=== PATIENT | male | born 1990 | race Caucasian/White ===

== ENCOUNTER 2017-06-23 17:53 | Emergency (ER) | payer OTHER ==
[2017-06-23 18:36] VITALS: BP 165/112
[2017-06-23] MEDS ORDERED: Ketorolac 60 MG/2 ML SDV IM ONE (19:24)
--- NOTE | 2017-06-23 19:31 | EDM.PDOC ---
ED HPI GENERAL MEDICAL PROBLEM - General Chief Complaint: Back Pain or Injury Stated Complaint: PT HURT BACK Time Seen by Provider: 06/23/17 18:55 - History of Present Illness INITIAL COMMENTS - FREE TEXT/NARRATIVE: HISTORY AND PHYSICAL: History of present illness: Patient is 26-year-old male presents with concern of low back pain after having twisted at work he denies direct trauma denies numbness weakness incontinence or retention bowel or bladder he states he does have some lumbar disc disease that he is told in the past. Review of systems: As per history of present illness and below otherwise all systems reviewed and negative. Past medical history: As per history of present illness and as reviewed below otherwise noncontributory. Surgical history: As per history of present illness and as reviewed below otherwise noncontributory. Social history: No reported history of drug or alcohol abuse. Family history: As per history of present illness and as reviewed below otherwise noncontributory. Physical exam: HEENT: Atraumatic, normocephalic, pupils reactive, negative for conjunctival pallor or scleral icterus, mucous membranes moist, throat clear, neck supple, nontender, trachea midline. Lungs: Clear to auscultation, breath sounds equal bilaterally, chest nontender. Heart: S1S2, regular, negative for clicks, rubs, or JVD. Abdomen: Soft, nondistended, nontender. Negative for masses or hepatosplenomegaly. Negative for costovertebral tenderness. Pelvis: Stable nontender. Genitourinary: Deferred. Rectal: Deferred. Extremities: Atraumatic, negative for cords or calf pain. Neurovascular unremarkable. Neuro: Awake, alert, oriented. Cranial nerves II through XII unremarkable. Cerebellum unremarkable. Motor and sensory unremarkable throughout. Exam nonfocal. Back: Patient is some mild paravertebral tenderness at the level of lumbar spinal vertebral body or point tenderness deep tendon reflexes motor and sensory are normal patient is able to stand on his toes back on his heels Diagnostics: Lumbar spine x-ray Therapeutics: Toradol 60 mg IM Impression: #1 low back pain #2 history of lumbar disc disease Definitive disposition and diagnosis as appropriate pending reevaluation and review of above. Lower Back Pain Score (Numeric/FACES): 7 - Related Data Allergies Allergy/AdvReac Type Severity Reaction Status Date / Time acetaminophen [From Vicodin] Allergy Swollen Verified 06/23/17 18:29 Tongue hydrocodone bitartrate Allergy Swollen Verified 06/23/17 18:29 [From Vicodin] Tongue Home Meds: Home Meds . [No Known Home Meds] 06/23/17 [History] Past Medical History Other HEENT History: wears glasses Cardiovascular History: Reports: Angina, Other (See Below) Other Cardiovascular History: will be checked by Dr. Bebeto Allison before -The patient told me that he saw Dr. Allison and he was cleared for surgery. Respiratory History: Reports: Other (See Below) Gastrointestinal History: Reports: GERD Genitourinary History: Reports: None Musculoskeletal History: Reports: Fracture Other Musculoskeletal History: left arm and left thumb Neurological History: Reports: None Psychiatric History: Reports: None Endocrine/Metabolic History: Reports: Hypothyroidism, Obesity/BMI 30+ Hematologic History: Reports: None Immunologic History: Reports: None Oncologic (Cancer) History: Reports: None Dermatologic History: Reports: None - Infectious Disease History Infectious Disease History: Reports: Chicken Pox - Past Surgical History Head Surgeries/Procedures: Reports: None GI Surgical History: Reports: Appendectomy Male Surgical History: Reports: None Endocrine Surgical History: Reports: None Neurological Surgical History: Reports: None Musculoskeletal Surgical History: Reports: ORIF, Other (See Below) Oncologic Surgical History: Reports: None Dermatological Surgical History: Reports: None - History Comment History Comment: etoh "1x a week". Social & Family History - Family History Family Medical History: Noncontributory - Tobacco Use Smoking Status *Q: Current Every Day Smoker Years of Tobacco use: 18 Packs/Tins Daily: 0.5 Used Tobacco, but Quit: No Second Hand Smoke Exposure: Yes - Caffeine Use Caffeine Use: Reports: Coffee, Energy Drinks, Soda, Tea - Alcohol Use Days Per Week of Alcohol Use: 3 Number of Drinks Per Day: 6 Total Drinks Per Week: 18 - Recreational Drug Use Recreational Drug Use: No Drug Use in Last 12 Months: No ED ROS GENERAL - Review of Systems Review Of Systems: ROS reveals no pertinent complaints other than HPI. ED EXAM, GENERAL - Physical Exam Exam: See Below (See dictation) Course - Vital Signs Last Recorded V/S: Last Vital Signs Temp 36.8 C 06/23/17 18:34 Pulse 89 06/23/17 18:34 Resp 18 06/23/17 18:34 BP 165/112 H 06/23/17 18:34 Pulse Ox 95 06/23/17 18:34 - Orders/Labs/Meds Orders: Active Orders 24 hr Category Date Time Status Lumbar Spine 2 or 3V [CR] Stat Exams 06/23/17 19:24 Ordered Meds: Medications Discontinued Medications Generic Name Dose Route Start Last Admin Trade Name Micky PRN Reason Stop Dose Admin Ketorolac Tromethamine 60 mg 06/23/17 19:24 Toradol IM 06/23/17 19:25 ONETIME ONE Departure - Departure Time of Disposition: 19:29 Disposition: Home, Self-Care 01 Condition: Good Clinical Impression: Back pain - Discharge Information Referrals: PCP,None [Primary Care Provider] - Additional Instructions: The following information is given to patients seen in the emergency department who are being discharged to home. This information is to outline your options for follow-up care. We provide all patients seen in our emergency department with a follow-up referral. The need for follow-up, as well as the timing and circumstances, are variable depending upon the specifics of your emergency department visit. If you don't have a primary care physician on staff, we will provide you with a referral. We always advise you to contact your personal physician following an emergency department visit to inform them of the circumstance of the visit and for follow-up with them and/or the need for any referrals to a consulting specialist. The emergency department will also refer you to a specialist when appropriate. This referral assures that you have the opportunity for followup care with a specialist. All of these measure are taken in an effort to provide you with optimal care, which includes your followup. Under all circumstances we always encourage you to contact your private physician who remains a resource for coordinating your care. When calling for followup care, please make the office aware that this follow-up is from your recent emergency room visit. If for any reason you are refused follow-up, please contact the [facility] emergency department at and asked to speak to the emergency department charge nurse. Ultram Flexeril as prescribed follow-up occupational health as discussed return as needed as discussed - My Orders Last 24 Hours: My Active Orders 06/23/17 19:24 Lumbar Spine 2 or 3V [CR] Stat - Assessment/Plan Last 24 Hours: My Active Orders 06/23/17 19:24 Lumbar Spine 2 or 3V [CR] Stat
--- NOTE | 2017-06-24 10:45 | CR ---
EXAM DATE: 06/23/17 PATIENT'S AGE: 26 Patient: [facility] Facility: [place], [place] Site . Site : 1990 Study: XRay Spine Lumbar [id number] 8:18:02 PM Ordering Physician: Emily Brown Final Report: INDICATION: LOWER BACK PAIN TECHNIQUE: Lumbar spine radiograph 3 views COMPARISON: None FINDINGS: Bones: Alignment is normal. No acute fractures, compression deformities, or aggressive bone lesions identified. Disc spaces: Disc spaces are normal. Facet joints are normal. Soft tissues: Unremarkable. IMPRESSION: 1. No acute osseous injuries are noted. Dictated by: Alejandro Vargas MD @ 06/23/2017 20:42:50 (Electronic Signature) Report Signed by Proxy. [facility]ITAL[facility]iv[facility]
== END 2017-06-23 20:40 | disposition home or self-care (01) ==
LOC: MW.ED 17:53
DX: M54.5 Low back pain (principal); F17.210 Nicotine dependence, cigarettes, uncomplicated
CPT/HCPCS: 72100; 96372; 99283; J1885

== ENCOUNTER 2017-09-13 00:42 | Emergency (ER) | payer SELFPAY ==
--- NOTE | 2017-09-13 01:07 | EDM.PDOC ---
ED HPI GENERAL MEDICAL PROBLEM - General Chief Complaint: Lower Extremity Injury/Pain Stated Complaint: POSSIBLE BROKEN RIGHT ANKLE AND RIGHT THUMB Time Seen by Provider: 09/13/17 01:05 - History of Present Illness INITIAL COMMENTS - FREE TEXT/NARRATIVE: HISTORY AND PHYSICAL: History of present illness: Patient is a 26-year-old male presents status post fall which injured his right ankle and first digit of his right hand he denies other trauma or concern Review of systems: As per history of present illness and below otherwise all systems reviewed and negative. Past medical history: As per history of present illness and as reviewed below otherwise noncontributory. Surgical history: As per history of present illness and as reviewed below otherwise noncontributory. Social history: No reported history of drug or alcohol abuse. Family history: As per history of present illness and as reviewed below otherwise noncontributory. Physical exam: HEENT: Atraumatic, normocephalic, pupils reactive, negative for conjunctival pallor or scleral icterus, mucous membranes moist, throat clear, neck supple, nontender, trachea midline. Lungs: Clear to auscultation, breath sounds equal bilaterally, chest nontender. Heart: S1S2, regular, negative for clicks, rubs, or JVD. Abdomen: Soft, nondistended, nontender. Negative for masses or hepatosplenomegaly. Negative for costovertebral tenderness. Pelvis: Stable nontender. Genitourinary: Deferred. Rectal: Deferred. Extremities: Patient has some mild tenderness and swelling in region of the lateral malleolus of his right ankle right thumb has no point tenderness no gross deformity CMS and neurovascular exam are unremarkable Neuro: Awake, alert, oriented. Cranial nerves II through XII unremarkable. Cerebellum unremarkable. Motor and sensory unremarkable throughout. Exam nonfocal. Diagnostics: X-ray right hand/right ankle Therapeutics: Klever wrap Impression: #1 observation status post fall #2 right ankle injury #3 acute right hand injury Definitive disposition and diagnosis as appropriate pending reevaluation and review of above. right ankle Pain Score (Numeric/FACES): 10 right thumb Pain Score (Numeric/FACES): 4 - Related Data Allergies Allergy/AdvReac Type Severity Reaction Status Date / Time acetaminophen [From Vicodin] Allergy Swollen Verified 09/13/17 00:54 Tongue hydrocodone bitartrate Allergy Swollen Verified 01/27/18 00:54 [From Vicodin] Tongue Home Meds: Home Meds . [No Known Home Meds] 06/23/17 [History] Past Medical History Other HEENT History: wears glasses Cardiovascular History: Reports: Angina Other Cardiovascular History: will be checked by Dr. Bebeto Allison before -The patient told me that he saw Dr. Allison and he was cleared for surgery. Respiratory History: Reports: Other (See Below) Gastrointestinal History: Reports: GERD Genitourinary History: Reports: None Musculoskeletal History: Reports: Fracture Other Musculoskeletal History: left arm and left thumb Neurological History: Reports: None Psychiatric History: Reports: None Endocrine/Metabolic History: Reports: Hypothyroidism, Obesity/BMI 30+ Hematologic History: Reports: None Immunologic History: Reports: None Oncologic (Cancer) History: Reports: None Dermatologic History: Reports: None - Infectious Disease History Infectious Disease History: Reports: Chicken Pox - Past Surgical History Head Surgeries/Procedures: Reports: None HEENT Surgical History: Reports: None Cardiovascular Surgical History: Reports: None GI Surgical History: Reports: Appendectomy Male Surgical History: Reports: None Endocrine Surgical History: Reports: None Neurological Surgical History: Reports: None Musculoskeletal Surgical History: Reports: ORIF, Other (See Below) Other Musculoskeletal Surgeries/Procedures:: left arm surgery with plate and screws Oncologic Surgical History: Reports: None Dermatological Surgical History: Reports: None - History Comment History Comment: etoh "1x a week". Social & Family History - Family History Family Medical History: Noncontributory - Tobacco Use Smoking Status *Q: Current Every Day Smoker Years of Tobacco use: 17 Packs/Tins Daily: 0.5 Used Tobacco, but Quit: No Second Hand Smoke Exposure: Yes - Caffeine Use Caffeine Use: Reports: None - Alcohol Use Days Per Week of Alcohol Use: 3 Number of Drinks Per Day: 6 Total Drinks Per Week: 18 - Recreational Drug Use Recreational Drug Use: No Drug Use in Last 12 Months: No Review of Systems - Review of Systems Review Of Systems: ROS reveals no pertinent complaints other than HPI. ED EXAM, GENERAL - Physical Exam Exam: See Below (See dictation) Course - Vital Signs Last Recorded V/S: Last Vital Signs Temp 37.4 C 09/13/17 00:48 Pulse 140 H 09/13/17 00:48 Resp 20 09/13/17 00:48 BP Pulse Ox 97 09/13/17 00:48 - Orders/Labs/Meds Orders: Active Orders 24 hr Category Date Time Status Ankle Min 3V Rt [CR] Stat Exams 09/13/17 00:49 Taken Fingers Thumb Rt F5 [CR] Stat Exams 09/13/17 00:49 Taken Departure - Departure Time of Disposition: 02:10 Disposition: Home, Self-Care 01 Condition: Good Clinical Impression: Ankle injury, Hand injury - Discharge Information Referrals: PCP,None [Primary Care Provider] - Forms: ED Department Discharge Additional Instructions: The following information is given to patients seen in the emergency department who are being discharged to home. This information is to outline your options for follow-up care. We provide all patients seen in our emergency department with a follow-up referral. The need for follow-up, as well as the timing and circumstances, are variable depending upon the specifics of your emergency department visit. If you don't have a primary care physician on staff, we will provide you with a referral. We always advise you to contact your personal physician following an emergency department visit to inform them of the circumstance of the visit and for follow-up with them and/or the need for any referrals to a consulting specialist. The emergency department will also refer you to a specialist when appropriate. This referral assures that you have the opportunity for followup care with a specialist. All of these measure are taken in an effort to provide you with optimal care, which includes your followup. Under all circumstances we always encourage you to contact your private physician who remains a resource for coordinating your care. When calling for followup care, please make the office aware that this follow-up is from your recent emergency room visit. If for any reason you are refused follow-up, please contact the [facility] emergency department at and asked to speak to the emergency department charge nurse. Motrin/Tylenol as directed Klever wrap crutches as discussed follow-up private medical doctor wanted today's return as needed as discussed - My Orders Last 24 Hours: My Active Orders 09/13/17 00:49 Ankle Min 3V Rt [CR] Stat Fingers Thumb Rt F5 [CR] Stat - Assessment/Plan Last 24 Hours: My Active Orders 09/13/17 00:49 Ankle Min 3V Rt [CR] Stat Fingers Thumb Rt F5 [CR] Stat
[2017-09-13] MEDS ORDERED: Ibuprofen 400 MG Tab PO ONE (02:11)
--- NOTE | 2017-09-15 13:27 | CR ---
EXAM DATE: 09/13/17 PATIENT'S AGE: 26 Patient: [facility] Facility: [place], [place] Site . Site : 1990 Study: XRay Extremity Right [id number]/27/2018 1:48:13 AM Ordering Physician: Doctor Estrella Final Report: INDICATION: Ankle injury TECHNIQUE: Ankle radiograph 3 views right COMPARISON: None FINDINGS: Bones: Alignment is normal. No acute fractures or aggressive bone lesions identified. Joint spaces: Unremarkable. No ankle joint effusion is seen. Soft tissues: Unremarkable. No radiopaque foreign bodies are seen. IMPRESSION: 1. No acute osseous injuries are noted. Dictated by: Alejandro Vargas MD @ 09/13/2017 01:56:38 (Electronic Signature) Report Signed by Proxy. [facility]
--- NOTE | 2017-09-15 13:28 | CR ---
EXAM DATE: 09/13/17 PATIENT'S AGE: 26 Patient: [facility] Facility: [place], [place] Site . Site : 1990 Study: XRay Extremity Right [id number]/27/2018 1:49:14 AM Ordering Physician: Doctor Estrella Final Report: INDICATION: Injury to thumb TECHNIQUE: Finger radiograph 3 views right COMPARISON: None FINDINGS: Bones: No acute fractures or aggressive bone lesions are identified. Joints: The metacarpophalangeal and interphalangeal joints are normal in appearance. Soft tissues: Unremarkable. No radiopaque foreign bodies are seen. IMPRESSION: 1. No acute osseous injuries or abnormalities are noted. Dictated by: Alejandro Vargas MD @ 09/13/2017 01:57:16 (Electronic Signature) Report Signed by Proxy. [facility]ITAL[facility]
== END 2017-09-13 02:20 | disposition home or self-care (01) ==
LOC: MW.ED 00:42
DX: S99.911A Unspecified injury of right ankle, initial encounter (principal); S69.91XA Unspecified injury of right wrist, hand and finger(s), initial encounter; F17.210 Nicotine dependence, cigarettes, uncomplicated; Z88.5 Allergy status to narcotic agent; Z88.8 Allergy status to other drugs, medicaments and biological substances; W19.XXXA Unspecified fall, initial encounter
CPT/HCPCS: 73140; 73610; 99283; A9270

== ENCOUNTER 2017-12-13 07:51 | Emergency (ER) | payer SELFPAY ==
[2017-12-13 08:00] VITALS: BP 148/98
[2017-12-13] MEDS ORDERED: methylPREDNISolone Sodium Succinate 125 MG/2 ML SDV IM ONE (08:07)
--- NOTE | 2017-12-13 08:13 | EDM.PDOC ---
ED HPI GENERAL MEDICAL PROBLEM - General Chief Complaint: Skin Complaint Stated Complaint: RASH Time Seen by Provider: 12/13/17 08:02 - History of Present Illness INITIAL COMMENTS - FREE TEXT/NARRATIVE: HISTORY AND PHYSICAL: History of present illness: The patient is a 27-year-old male with no stated medical problems who presents with complaints of a diffuse rash on his extremities and trunk that started yesterday. He denies any allergies to any medications and did not eat any new foods or contact any new products at work or at home but he says the rash is very itchy and is on his lower extremities upper extremities and trunk but not on his genitalia or neck.. The patient has not taken any medications for the itching or the rash. He has no swelling of his mouth or tongue and has no respiratory complaints Review of systems: As per history of present illness and below otherwise all systems reviewed and negative. Past medical history: As per history of present illness and as reviewed below otherwise noncontributory. Surgical history: As per history of present illness and as reviewed below otherwise noncontributory. Social history: No reported history of drug or alcohol abuse. Family history: As per history of present illness and as reviewed below otherwise noncontributory. Physical exam: General: Well-developed well-nourished overweight man who is nontoxic and vital signs were noted by me. He speaking clearly and easily. HEENT: Atraumatic, normocephalic, pupils reactive, negative for conjunctival pallor or scleral icterus, mucous membranes moist, throat clear, neck supple, nontender, trachea midline. there is no facial swelling or oropharyngeal swelling Lungs: Clear to auscultation, breath sounds equal bilaterally, chest nontender. no wheezing stridor Heart: S1S2, regular, negative for clicks, rubs, or JVD. Abdomen: Soft, nondistended, nontender. NABS Negative for costovertebral tenderness. Pelvis: Stable nontender. Genitourinary: Deferred. Rectal: Deferred. Extremities: Atraumatic, negative for cords or calf pain. Neurovascular unremarkable. Neuro: Awake, alert, oriented. Cranial nerves II through XII unremarkable. Cerebellum unremarkable. Motor and sensory unremarkable throughout. Exam nonfocal. Skin: On the lower extremities and the trunk there is diffuse urticarial-like areas which are patchy and there is less on the arms but there is no rash or lesion seen on the neck or face. Diagnostics: [] Therapeutics: IM solumedrol Impression: Urticaria/contact reaction Definitive disposition and diagnosis as appropriate pending reevaluation and review of above. - Related Data Allergies Allergy/AdvReac Type Severity Reaction Status Date / Time acetaminophen [From Vicodin] Allergy Swollen Verified 12/13/17 07:58 Tongue hydrocodone bitartrate Allergy Swollen Verified 12/13/17 07:58 [From Vicodin] Tongue Home Meds: Home Meds . [No Known Home Meds] 06/23/17 [History] Past Medical History Other HEENT History: wears glasses Cardiovascular History: Reports: Angina Other Cardiovascular History: will be checked by Dr. Bebeto Allison before -The patient told me that he saw Dr. Allison and he was cleared for surgery. Respiratory History: Reports: Other (See Below) Gastrointestinal History: Reports: GERD Genitourinary History: Reports: None Musculoskeletal History: Reports: Fracture Other Musculoskeletal History: left arm and left thumb Neurological History: Reports: None Psychiatric History: Reports: None Endocrine/Metabolic History: Reports: Hypothyroidism, Obesity/BMI 30+ Hematologic History: Reports: None Immunologic History: Reports: None Oncologic (Cancer) History: Reports: None Dermatologic History: Reports: None - Infectious Disease History Infectious Disease History: Reports: Chicken Pox - Past Surgical History Head Surgeries/Procedures: Reports: None HEENT Surgical History: Reports: None Cardiovascular Surgical History: Reports: None GI Surgical History: Reports: Appendectomy Male Surgical History: Reports: None Endocrine Surgical History: Reports: None Neurological Surgical History: Reports: None Musculoskeletal Surgical History: Reports: ORIF, Other (See Below) Other Musculoskeletal Surgeries/Procedures:: left arm surgery with plate and screws Oncologic Surgical History: Reports: None Dermatological Surgical History: Reports: None - History Comment History Comment: etoh "1x a week". Social & Family History - Family History Family Medical History: Noncontributory - Tobacco Use Smoking Status *Q: Current Every Day Smoker Years of Tobacco use: 18 Packs/Tins Daily: 0.5 Used Tobacco, but Quit: No Second Hand Smoke Exposure: Yes - Caffeine Use Caffeine Use: Reports: None - Alcohol Use Days Per Week of Alcohol Use: 2 Number of Drinks Per Day: 5 Total Drinks Per Week: 10 - Recreational Drug Use Recreational Drug Use: No Drug Use in Last 12 Months: No ED ROS GENERAL - Review of Systems Review Of Systems: ROS reveals no pertinent complaints other than HPI. ED EXAM, SKIN/RASH Exam: See Below (See dictation) Course - Vital Signs Last Recorded V/S: Last Vital Signs Temp 36.5 C 12/13/17 07:58 Pulse 108 H 12/13/17 07:58 Resp 20 12/13/17 07:58 BP 148/98 H 12/13/17 07:58 Pulse Ox 97 12/13/17 07:58 - Orders/Labs/Meds Orders: Active Orders 24 hr Category Date Time Status methylPREDNISolone Sod Succ [Solu-MEDROL] Med 12/13/17 08:07 Once 125 mg IM ONETIME ONE Departure - Departure Time of Disposition: 08:11 Disposition: Home, Self-Care 01 Condition: Good Clinical Impression: Urticaria, Contact allergic reaction - Discharge Information Referrals: PCP,None [Primary Care Provider] - Additional Instructions: The following information is given to patients seen in the emergency department who are being discharged to home. This information is to outline your options for follow-up care. We provide all patients seen in our emergency department with a follow-up referral. The need for follow-up, as well as the timing and circumstances, are variable depending upon the specifics of your emergency department visit. If you don't have a primary care physician on staff, we will provide you with a referral. We always advise you to contact your personal physician following an emergency department visit to inform them of the circumstance of the visit and for follow-up with them and/or the need for any referrals to a consulting specialist. The emergency department will also refer you to a specialist when appropriate. This referral assures that you have the opportunity for followup care with a specialist. All of these measure are taken in an effort to provide you with optimal care, which includes your followup. Under all circumstances we always encourage you to contact your private physician who remains a resource for coordinating your care. When calling for followup care, please make the office aware that this follow-up is from your recent emergency room visit. If for any reason you are refused follow-up, please contact the [facility] emergency department at and ask to speak to the emergency department charge nurse. [facility] Primary [facility]- [facility] [place] [address] Please fill your prescription for steroids and start them tomorrow. Use Benadryl 50 mg every 6 hours for the next 2 days to help with the itching and the histamine. Try to explore your world for possible causes and use hypoallergenic products. These call and follow-up with your provider in the clinic next week and return to ER as needed and as discussed. The rash will wax and wane over the next few days. Return to ER as needed and as discussed. Also use [id number] hydrocortisone - My Orders Last 24 Hours: My Active Orders 12/13/17 08:07 methylPREDNISolone Sod Succ [Solu-MEDROL] 125 mg IM ONETIME ONE - Assessment/Plan Last 24 Hours: My Active Orders 12/13/17 08:07 methylPREDNISolone Sod Succ [Solu-MEDROL] 125 mg IM ONETIME ONE
== END 2017-12-13 08:45 | disposition home or self-care (01) ==
LOC: MW.ED 07:51
DX: L50.0 Allergic urticaria (principal); K21.9 Gastro-esophageal reflux disease without esophagitis; E03.9 Hypothyroidism, unspecified; F17.210 Nicotine dependence, cigarettes, uncomplicated; E66.9 Obesity, unspecified; Z88.5 Allergy status to narcotic agent; Z68.41 Body mass index [BMI] 40.0-44.9, adult
CPT/HCPCS: 99282; J2930; 99283

== ENCOUNTER 2017-12-22 10:40 | Emergency (ER) | payer SELFPAY ==
--- NOTE | 2017-12-22 11:04 | EDM.PDOC ---
ED HPI GENERAL MEDICAL PROBLEM - General Chief Complaint: ENT Problem Stated Complaint: SORE THROAT Time Seen by Provider: 12/22/17 10:41 Source of Information: Reports: Patient History Limitations: Reports: No Limitations - History of Present Illness INITIAL COMMENTS - FREE TEXT/NARRATIVE: HISTORY AND PHYSICAL: History of present illness: Patient is a 27-year-old male who presents to the emergency room with a 3 day history of throat pain and mild ear pain bilaterally. He states he has been using [id number] lozenges and cough/cold medications without any relief. He denies any fever, chills, chest pain shortness of breath or cough. He denies any abdominal pain, nausea, vomiting, diarrhea or constipation. He is a daily smoker. Review of systems: As per history of present illness and below otherwise all systems reviewed and negative. Past medical history: As per history of present illness and as reviewed below otherwise noncontributory. Surgical history: As per history of present illness and as reviewed below otherwise noncontributory. Social history: No reported history of drug or alcohol abuse. Family history: As per history of present illness and as reviewed below otherwise noncontributory. Physical exam: General: Well-developed and well-nourished 27-year-old male. Alert and oriented. Nontoxic appearing and in no acute distress. HEENT: Atraumatic, normocephalic, pupils equal and reactive bilaterally, negative for conjunctival pallor or scleral icterus, mucous membranes moist, erythema noted to the posterior oropharynx without exudate- no pillor shifting, neck supple, nontender, trachea midline. Mild erythema noted to the right TM, good light reflex and no bulging. M normal. No drooling or trismus noted. No meningeal signs Lungs: Clear to auscultation, breath sounds equal bilaterally, chest nontender. Heart: S1S2, regular rate and rhythm without overt murmur Abdomen: Soft, nondistended, nontender. Negative for masses or hepatosplenomegaly. Negative for costovertebral tenderness. Pelvis: Stable nontender. Genitourinary: Deferred. Rectal: Deferred. Skin: Intact, warm, dry. No lesions or rashes noted. Extremities: Atraumatic, negative for cords or calf pain. Neurovascular unremarkable. Neuro: Awake, alert, oriented. Cranial nerves II through XII unremarkable. Cerebellum unremarkable. Motor and sensory unremarkable throughout. Exam nonfocal. Notes: Patient's blood pressure is elevated upon arrival. He states "this always happens when I walk into her doctor's office". He declines further evaluation and management of his blood pressure and states he will follow-up with his primary caregiver for this issue. We'll give the patient Augmentin 875 twice a day 10 days. Phenergan with codeine for comfort. Supportive care measures were reviewed and discussed. He voices understanding and is agreeable to plan of care. Denies any further questions at this time. Diagnostics: [] Therapeutics: [] Impression: Pharyngitis Plan: 1. Please stop smoking 2. Take your antibiotic as prescribed. Phenergan with codeine for pain relief. This medication will cause drowsiness a do not take it will driving her needing to be functioning outside of the house. Otherwise he may continue to use over- the-counter products for symptomatic relief. 3. Follow up with a primary caregiver in the next 1-2 days. Return to the ED as needed and as discussed. Definitive disposition and diagnosis as appropriate pending reevaluation and review of above. Duration: Day(s): Location: Reports: Head throat Pain Score (Numeric/FACES): 4 - Related Data Allergies Allergy/AdvReac Type Severity Reaction Status Date / Time acetaminophen [From Vicodin] Allergy Swollen Verified 12/22/17 10:54 Tongue hydrocodone bitartrate Allergy Swollen Verified 12/22/17 10:54 [From Vicodin] Tongue Home Meds: Home Meds . [No Known Home Meds] 06/23/17 [History] Past Medical History Other HEENT History: wears glasses Cardiovascular History: Reports: Angina Other Cardiovascular History: will be checked by Dr. Bebeto Allison before -The patient told me that he saw Dr. Allison and he was cleared for surgery. Respiratory History: Reports: Other (See Below) Gastrointestinal History: Reports: GERD Genitourinary History: Reports: None Musculoskeletal History: Reports: Fracture Other Musculoskeletal History: left arm and left thumb Neurological History: Reports: None Psychiatric History: Reports: None Endocrine/Metabolic History: Reports: Hypothyroidism, Obesity/BMI 30+ Hematologic History: Reports: None Immunologic History: Reports: None Oncologic (Cancer) History: Reports: None Dermatologic History: Reports: None - Infectious Disease History Infectious Disease History: Reports: Chicken Pox - Past Surgical History Head Surgeries/Procedures: Reports: None HEENT Surgical History: Reports: None Cardiovascular Surgical History: Reports: None GI Surgical History: Reports: Appendectomy Male Surgical History: Reports: None Endocrine Surgical History: Reports: None Neurological Surgical History: Reports: None Musculoskeletal Surgical History: Reports: ORIF, Other (See Below) Other Musculoskeletal Surgeries/Procedures:: left arm surgery with plate and screws Oncologic Surgical History: Reports: None Dermatological Surgical History: Reports: None - History Comment History Comment: etoh "1x a week". Social & Family History - Family History Family Medical History: Noncontributory - Tobacco Use Smoking Status *Q: Current Every Day Smoker Years of Tobacco use: 18 Packs/Tins Daily: 0.5 Used Tobacco, but Quit: No Second Hand Smoke Exposure: Yes - Caffeine Use Caffeine Use: Reports: None - Alcohol Use Days Per Week of Alcohol Use: 2 Number of Drinks Per Day: 5 Total Drinks Per Week: 10 - Recreational Drug Use Recreational Drug Use: No Drug Use in Last 12 Months: No ED ROS ENT - Review of Systems Review Of Systems: ROS reveals no pertinent complaints other than HPI. ED EXAM, ENT - Physical Exam Exam: See Below (See dictation) Course - Vital Signs Last Recorded V/S: Last Vital Signs Temp 98.6 F 12/22/17 10:54 Pulse 95 12/22/17 10:54 Resp 16 12/22/17 10:54 BP 149/104 H 12/22/17 10:54 Pulse Ox 96 12/22/17 10:54 Departure - Departure Time of Disposition: 11:03 Disposition: Home, Self-Care 01 Clinical Impression: Pharyngitis Qualifiers: Pharyngitis/tonsillitis etiology: unspecified etiology Qualified Code(s): J02.9 - Acute pharyngitis, unspecified - Discharge Information Instructions: Pharyngitis Referrals: PCP,None [Primary Care Provider] - Additional Instructions: The following information is given to patients seen in the emergency department who are being discharged to home. This information is to outline your options for follow-up care. We provide all patients seen in our emergency department with a follow-up referral. The need for follow-up, as well as the timing and circumstances, are variable depending upon the specifics of your emergency department visit. If you don't have a primary care physician on staff, we will provide you with a referral. We always advise you to contact your personal physician following an emergency department visit to inform them of the circumstance of the visit and for follow-up with them and/or the need for any referrals to a consulting specialist. The emergency department will also refer you to a specialist when appropriate. This referral assures that you have the opportunity for follow-up care with a specialist. All of these measure are taken in an effort to provide you with optimal care, which includes your follow-up. Under all circumstances we always encourage you to contact your private physician who remains a resource for coordinating your care. When calling for follow-up care, please make the office aware that this follow-up is from your recent emergency room visit. If for any reason you are refused follow-up, please contact the [facility] Emergency Department at and asked to speak to the emergency department charge nurse. [facility] [address] [place] [id number] 1. Please stop smoking 2. Take your antibiotic as prescribed. Phenergan with codeine for pain relief. This medication will cause drowsiness a do not take it will driving her needing to be functioning outside of the house. Otherwise he may continue to use over- the-counter products for symptomatic relief. 3. Follow up with a primary caregiver in the next 1-2 days. Return to the ED as needed and as discussed.
[2017-12-22 11:20] VITALS: BP 145/96
== END 2017-12-22 11:17 | disposition home or self-care (01) ==
LOC: MW.ED 10:40
DX: J02.9 Acute pharyngitis, unspecified (principal); F17.210 Nicotine dependence, cigarettes, uncomplicated; Z88.6 Allergy status to analgesic agent; Z88.5 Allergy status to narcotic agent
CPT/HCPCS: 99282; 99283

== ENCOUNTER 2017-12-31 20:55 | Emergency (ER) | payer SELFPAY ==
[2017-12-31] MEDS ORDERED: Lidocaine 1% 20 ML MDV INJECT ONE (21:31)
[2017-12-31] MEDS ORDERED: Bacitracin Oint 1 GM U/D Packet TOP ONE (21:31)
[2017-12-31] MEDS ORDERED: traMADol 50 MG Tab PO ONE (21:56)
--- NOTE | 2017-12-31 21:56 | EDM.PDOC ---
ED HPI GENERAL MEDICAL PROBLEM - General Chief Complaint: Laceration Stated Complaint: LACERATION RT THUMB Time Seen by Provider: 12/31/17 21:25 Source of Information: Reports: Patient History Limitations: Reports: No Limitations - History of Present Illness INITIAL COMMENTS - FREE TEXT/NARRATIVE: HISTORY AND PHYSICAL: History of present illness: Patient is a 27-year-old male who presents to the emergency room today with complaints of right thumb laceration. He states he was helping unloading a boat when a piece of metal on the exterior cut his right thumb. His last tetanus shot was one year ago. Review of systems: As per history of present illness and below otherwise all systems reviewed and negative. Past medical history: As per history of present illness and as reviewed below otherwise noncontributory. Surgical history: As per history of present illness and as reviewed below otherwise noncontributory. Social history: No reported history of drug or alcohol abuse. Family history: As per history of present illness and as reviewed below otherwise noncontributory. Physical exam: General: Well-developed and well-nourished 27-year-old male. Alert and oriented. Nontoxic appearing and in no acute distress. HEENT: Atraumatic, normocephalic, pupils equal and reactive bilaterally, negative for conjunctival pallor or scleral icterus, mucous membranes moist, throat clear, neck supple, nontender, trachea midline. No drooling or trismus noted. No meningeal signs Lungs: Clear to auscultation, breath sounds equal bilaterally, chest nontender. Heart: S1S2, regular rate and rhythm without overt murmur Abdomen: Soft, nondistended, nontender. Negative for masses or hepatosplenomegaly. Negative for costovertebral tenderness. Pelvis: Stable nontender. Genitourinary: Deferred. Rectal: Deferred. Skin: 1.5 centimeter by 1 cm "V" laceration to the pad of the right thumb. Intact, warm, dry. No lesions or rashes noted. Extremities: Atraumatic, negative for cords or calf pain. Neurovascular unremarkable. Neuro: Awake, alert, oriented. Cranial nerves II through XII unremarkable. Cerebellum unremarkable. Motor and sensory unremarkable throughout. Exam nonfocal. Notes: Area was anesthetized with 1% lidocaine. Irrigated with wound wash and cleansed with chlorhexidine. Wound was explored with no foreign body noted. Sterile technique was used. 4-0 nylon, #7 sutures, interrupted placed. Patient tolerated well. Bacitracin nonstick dressing applied. Patient states that he is quite dirty with his hands due to his occupation. We'll place him on Keflex. Diagnostics: [] Therapeutics: 1% lidocaine, bacitracin, wound care, nonstick dressing Impression: Finger laceration, right thumb Plan: 1. Keep the area clean and dry. Continue to monitor for signs of infection. Take your antibiotic as prescribed. 2. Sutures to be removed in 7-10 days. 3. Tylenol and/or ibuprofen as needed for pain management. 4. Follow-up with your primary caregiver in the next 1-2 days. Return to the ED as needed and as discussed. Definitive disposition and diagnosis as appropriate pending reevaluation and review of above. Onset: Today Right Hand Pain Score (Numeric/FACES): 5 - Related Data Allergies Allergy/AdvReac Type Severity Reaction Status Date / Time acetaminophen [From Vicodin] Allergy Swollen Verified 12/31/17 21:40 Tongue hydrocodone bitartrate Allergy Swollen Verified 12/31/17 21:40 [From Vicodin] Tongue Home Meds: Home Meds . [No Known Home Meds] 06/23/17 [History] Past Medical History Other HEENT History: wears glasses Cardiovascular History: Reports: Angina Other Cardiovascular History: will be checked by Dr. Bebeto Allison before -The patient told me that he saw Dr. lAlison and he was cleared for surgery. Respiratory History: Reports: Other (See Below) Gastrointestinal History: Reports: GERD Genitourinary History: Reports: None Musculoskeletal History: Reports: Fracture Other Musculoskeletal History: left arm and left thumb Neurological History: Reports: None Psychiatric History: Reports: None Endocrine/Metabolic History: Reports: Hypothyroidism, Obesity/BMI 30+ Hematologic History: Reports: None Immunologic History: Reports: None Oncologic (Cancer) History: Reports: None Dermatologic History: Reports: None - Infectious Disease History Infectious Disease History: Reports: Chicken Pox - Past Surgical History Head Surgeries/Procedures: Reports: None HEENT Surgical History: Reports: None Cardiovascular Surgical History: Reports: None GI Surgical History: Reports: Appendectomy Male Surgical History: Reports: None Endocrine Surgical History: Reports: None Neurological Surgical History: Reports: None Musculoskeletal Surgical History: Reports: ORIF, Other (See Below) Other Musculoskeletal Surgeries/Procedures:: left arm surgery with plate and screws Oncologic Surgical History: Reports: None Dermatological Surgical History: Reports: None - History Comment History Comment: etoh "1x a week". Social & Family History - Family History Family Medical History: Noncontributory - Tobacco Use Smoking Status *Q: Current Some Day Smoker Years of Tobacco use: 18 Packs/Tins Daily: 0.2 - Caffeine Use Caffeine Use: Reports: None - Alcohol Use Days Per Week of Alcohol Use: 3 Number of Drinks Per Day: 5 Total Drinks Per Week: 15 - Recreational Drug Use Recreational Drug Use: No ED ROS GENERAL - Review of Systems Review Of Systems: ROS reveals no pertinent complaints other than HPI. ED EXAM, SKIN/RASH Exam: See Below (See dictation) ED SKIN PROCEDURES - Laceration/Wound Repair Right Thumb Lac/Wound length In cm: 2.5 (1.5 x 1) Appearance: Subcutaneous Distal NVT: Neuro & Vascular Intact, No Tendon Injury Anesthetic Type: Topical Local Anesthesia - Lidocaine (Xylocaine): 1% Plain Local Anesthetic Volume: 4cc Skin Prep: Chlorhexidine (Hibiciens), Saline, Sterile Drape Saline Irrigation (cc's): 25 Exploration/Debridement/Repair: Wound Explored, No Foreign Material Found Closed with: Sutures Suture Size: 4-0 # of Sutures: 7 Suture Type: Nylon Sterile Dressing Applied: Provider Tetanus Status Addressed: Yes Complications: No Course - Vital Signs Last Recorded V/S: Last Vital Signs Temp 97.8 F 12/31/17 21:39 Pulse 100 12/31/17 21:39 Resp 20 12/31/17 21:39 BP 135/78 12/31/17 21:39 Pulse Ox 98 12/31/17 21:39 - Orders/Labs/Meds Meds: Medications Discontinued Medications Generic Name Dose Route Start Last Admin Trade Name Freq PRN Reason Stop Dose Admin Bacitracin 1 dose 12/31/17 21:31 Bacitracin Oint 1 Gm TOP 12/31/17 21:32 ONETIME ONE Lidocaine HCl 20 ml 12/31/17 21:31 Xylocaine 1% INJECT 12/31/17 21:32 ONETIME ONE Departure - Departure Time of Disposition: 21:55 Disposition: Home, Self-Care 01 Clinical Impression: Finger laceration Qualifiers: Encounter type: initial encounter Finger: thumb Damage to nail status: without damage Foreign body presence: without foreign body Laterality: right Qualified Code(s): S61.011A - Laceration without foreign body of right thumb without damage to nail, initial encounter - Discharge Information Instructions: Laceration Care, Adult Referrals: PCP,None [Primary Care Provider] - Additional Instructions: The following information is given to patients seen in the emergency department who are being discharged to home. This information is to outline your options for follow-up care. We provide all patients seen in our emergency department with a follow-up referral. The need for follow-up, as well as the timing and circumstances, are variable depending upon the specifics of your emergency department visit. If you don't have a primary care physician on staff, we will provide you with a referral. We always advise you to contact your personal physician following an emergency department visit to inform them of the circumstance of the visit and for follow-up with them and/or the need for any referrals to a consulting specialist. The emergency department will also refer you to a specialist when appropriate. This referral assures that you have the opportunity for follow-up care with a specialist. All of these measure are taken in an effort to provide you with optimal care, which includes your follow-up. Under all circumstances we always encourage you to contact your private physician who remains a resource for coordinating your care. When calling for follow-up care, please make the office aware that this follow-up is from your recent emergency room visit. If for any reason you are refused follow-up, please contact the [facility] Emergency Department at and asked to speak to the emergency department charge nurse. [facility] [address] [place] [id number] 1. Keep the area clean and dry. Continue to monitor for signs of infection. Take your antibiotic as prescribed. 2. Sutures to be removed in 7-10 days. 3. Tylenol and/or ibuprofen as needed for pain management. 4. Follow-up with your primary caregiver in the next 1-2 days. Return to the ED as needed and as discussed.
[2018-01-01 02:57] VITALS: BP 130/70
== END 2017-12-31 22:05 | disposition home or self-care (01) ==
LOC: MW.ED 20:55
DX: S61.011A Laceration without foreign body of right thumb without damage to nail, initial encounter (principal); E66.9 Obesity, unspecified; F17.210 Nicotine dependence, cigarettes, uncomplicated; Z88.8 Allergy status to other drugs, medicaments and biological substances; W45.8XXA Other foreign body or object entering through skin, initial encounter
CPT/HCPCS: 12001; 99282; A9270

== ENCOUNTER 2018-01-21 13:10 | Emergency (ER) | payer SELFPAY ==
[2018-01-21 13:29] VITALS: BP 145/94
--- NOTE | 2018-01-21 14:38 | EDM.PDOC ---
ED HPI GENERAL MEDICAL PROBLEM - General Chief Complaint: Eye Problems Stated Complaint: LT EYE HURTS Time Seen by Provider: 01/21/18 14:20 Source of Information: Reports: Patient History Limitations: Reports: No Limitations - History of Present Illness INITIAL COMMENTS - FREE TEXT/NARRATIVE: HISTORY AND PHYSICAL: History of present illness: [Patient comes to the emergency room complaining of purulent drainage from his left eye for the past week. 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 One morning when he woke up he noticed thick green discharge matting his eye shut. This has continued since onset. He has to wipe his eyes several times per day to remove discharge. Is always green in color. He is also complaining of some left ear pain. I is sensitive to light and he describes a gritty feel to his eye. Denies any foreign bodies. No right ear discomfort or symptoms, no sore throat. Denies fever and chills. No body aches or sore throat. He has no other complaints or concerns.] Review of systems: As per history of present illness and below otherwise all systems reviewed and negative. Past medical history: As per history of present illness and as reviewed below otherwise noncontributory. Surgical history: As per history of present illness and as reviewed below otherwise noncontributory. Social history: No reported history of drug or alcohol abuse. Family history: As per history of present illness and as reviewed below otherwise noncontributory. Physical exam: HEENT: Atraumatic, normocephalic. Left TM is brightly erythematous without effusion. Right TM is normal. Oral mucous membranes are pink and moist. Throat is clear. Neck supple no lymphadenopathy. Left conjunctiva is injected and erythematous. Appears watery but no purulent discharge noted. Right eye is clear., Lungs: Clear to auscultation, breath sounds equal bilaterally. Heart: S1S2, regular, negative for clicks, rubs, or JVD. Extremities: Atraumatic, negative for cords or calf pain. Neurovascular unremarkable. Neuro: Awake, alert, oriented. Cranial nerves II through XII unremarkable. Cerebellum unremarkable. Motor and sensory unremarkable throughout. Exam nonfocal. Impression: [L bacterial conjunctivitis Left otitis media] Plan: [Rx written for amoxicillin 500 mg #30 sig 1 by mouth 3 times a day, gentamicin ophthalmic solution 0.3% in affected eye 4 times a day 0 refills. Instructions given to follow-up with ophthalmology. Is in agreement with today's discussion.] Definitive disposition and diagnosis as appropriate pending reevaluation and review of above. left eye Pain Score (Numeric/FACES): 1 - Related Data Allergies Allergy/AdvReac Type Severity Reaction Status Date / Time acetaminophen [From Vicodin] Allergy Swollen Verified 01/21/18 13:28 Tongue hydrocodone bitartrate Allergy Swollen Verified 01/21/18 13:28 [From Vicodin] Tongue Home Meds: Home Meds . [No Known Home Meds] 06/23/17 [History] Past Medical History Other HEENT History: wears glasses Cardiovascular History: Reports: Angina Other Cardiovascular History: will be checked by Dr. Bebeto Allison before -The patient told me that he saw Dr. Allison and he was cleared for surgery. Respiratory History: Reports: Other (See Below) Gastrointestinal History: Reports: GERD Genitourinary History: Reports: None Musculoskeletal History: Reports: Fracture Other Musculoskeletal History: left arm and left thumb Neurological History: Reports: None Psychiatric History: Reports: None Endocrine/Metabolic History: Reports: Hypothyroidism, Obesity/BMI 30+ Hematologic History: Reports: None Immunologic History: Reports: None Oncologic (Cancer) History: Reports: None Dermatologic History: Reports: None - Infectious Disease History Infectious Disease History: Reports: Chicken Pox - Past Surgical History Head Surgeries/Procedures: Reports: None HEENT Surgical History: Reports: None Cardiovascular Surgical History: Reports: None GI Surgical History: Reports: Appendectomy Male Surgical History: Reports: None Endocrine Surgical History: Reports: None Neurological Surgical History: Reports: None Musculoskeletal Surgical History: Reports: ORIF, Other (See Below) Other Musculoskeletal Surgeries/Procedures:: left arm surgery with plate and screws Oncologic Surgical History: Reports: None Dermatological Surgical History: Reports: None - History Comment History Comment: etoh "1x a week". Social & Family History - Family History Family Medical History: Noncontributory - Tobacco Use Smoking Status *Q: Current Every Day Smoker Years of Tobacco use: 18 Packs/Tins Daily: 0.5 - Caffeine Use Caffeine Use: Reports: None - Alcohol Use Days Per Week of Alcohol Use: 2 Number of Drinks Per Day: 5 Total Drinks Per Week: 10 - Recreational Drug Use Recreational Drug Use: No ED ROS GENERAL - Review of Systems Review Of Systems: ROS reveals no pertinent complaints other than HPI. ED EXAM GENERAL W FULL EYE - Physical Exam Exam: See Below Course - Vital Signs Last Recorded V/S: Last Vital Signs Temp 96.9 F 01/21/18 13:28 Pulse 87 01/21/18 13:28 Resp 20 01/21/18 13:28 BP 145/94 H 01/21/18 13:28 Pulse Ox 98 01/21/18 13:28 Departure - Departure Time of Disposition: 14:40 Disposition: Home, Self-Care 01 Condition: Good Clinical Impression: Conjunctivitis - Discharge Information Instructions: Allergic Conjunctivitis, Adult, [id number] Referrals: PCP,None [Primary Care Provider] - Forms: ED Department Discharge Additional Instructions: The following information is given to patients seen in the emergency department who are being discharged to home. This information is to outline your options for follow-up care. We provide all patients seen in our emergency department with a follow-up referral. The need for follow-up, as well as the timing and circumstances, are variable depending upon the specifics of your emergency department visit. If you don't have a primary care physician on staff, we will provide you with a referral. We always advise you to contact your personal physician following an emergency department visit to inform them of the circumstance of the visit and for follow-up with them and/or the need for any referrals to a consulting specialist. The emergency department will also refer you to a specialist when appropriate. This referral assures that you have the opportunity for follow-up care with a specialist. All of these measure are taken in an effort to provide you with optimal care, which includes your follow-up. Under all circumstances we always encourage you to contact your private physician who remains a resource for coordinating your care. When calling for follow-up care, please make the office aware that this follow-up is from your recent emergency room visit. If for any reason you are refused follow-up, please contact the [facility] emergency department at and asked to speak to the emergency department charge nurse. [address] [address] Follow-up with a local primary care provider at the clinic listed above in 48- 72 hours. Return to ER as needed as discussed. Take medications as prescribed.
== END 2018-01-21 14:43 | disposition home or self-care (01) ==
LOC: MW.ED 13:10
DX: H66.92 Otitis media, unspecified, left ear (principal); H10.9 Unspecified conjunctivitis; Z88.8 Allergy status to other drugs, medicaments and biological substances; F17.210 Nicotine dependence, cigarettes, uncomplicated
CPT/HCPCS: 99282

== ENCOUNTER 2019-01-21 18:37 | Inpatient (IN) | payer SELFPAY ==
[2019-01-21] MEDS ORDERED: Sodium Chloride 0.9% 1,000 ML IV ONE ×2 (18:58→21:33)
[2019-01-21] MEDS ORDERED: Morphine 2 MG/ML Syringe IVPUSH ONE ×2 (18:58→21:33)
[2019-01-21] MEDS ORDERED: LORazepam 2 MG/ML SDV IVPUSH ONE (19:04)
--- NOTE | 2019-01-21 19:34 | EDM.PDOC ---
Addendum entered and electronically signed by Clara Merlos PA 01/21/19 22:23 : Add to diagostics: tib/fib XR and femur XR Original Note: <Clara Merlos - Last Filed: 01/21/19 22:02> ED HPI GENERAL MEDICAL PROBLEM - General Chief Complaint: Skin Complaint Stated Complaint: CELLULITIS Time Seen by Provider: 01/21/19 18:40 Source of Information: Reports: Patient History Limitations: Reports: No Limitations - History of Present Illness INITIAL COMMENTS - FREE TEXT/NARRATIVE: HISTORY AND PHYSICAL: History of present illness: Patient is a 28-year-old male presents to the ED today with concern of left leg and groin pain since this morning. Patient states he has a history of cellulitis in the same leg and had issues with that approximately 3 years ago. Patient states his symptoms today were similar to when he had his episode of cellulitis. Patient rates his pain a 10 out of 10. Patient states he started to feel like he was having fevers and chills at home but has not checked a temperature. Patient states he has not taken anything for his symptoms. Patient states last time he had cellulitis in the leg that he presented similarly to the ED and thought he had meningitis. Patient states he has started to feel dizzy due to the pain. Patient denies trauma or injury to the leg. Patient denies chest pain, shortness of breath, or cough. Denies headache, neck stiff ness, change in vision, syncope, or near syncope. Denies nausea, vomiting , abdominal pain, diarrhea, constipation, or dysuria. Has not noted any blood in urine or stool. Patient has been eating and drinking appropriately. Patient denies any other health history. Review of systems: As per history of present illness and below otherwise all systems reviewed and negative. Past medical history: As per history of present illness and as reviewed below otherwise noncontributory. Surgical history: As per history of present illness and as reviewed below otherwise noncontributory. Social history: See social history for further information Family history: As per history of present illness and as reviewed below otherwise noncontributory. Physical exam: General: Patient is alert, oriented, and in no acute distress. Patient laying comfortably on exam table. HEENT: Atraumatic, normocephalic, pupils equal and reactive bilaterally, negative for conjunctival pallor or scleral icterus, mucous membranes moist, TMs normal bilaterally, throat clear, neck supple, nontender, trachea midline. No drooling or trismus noted. No meningeal signs. No hot potato voice noted. Lungs: Clear to auscultation, breath sounds equal bilaterally, chest nontender. Heart: S1S2, regular rate and rhythm without overt murmur Abdomen: Soft, nondistended, nontender. Negative for masses or hepatosplenomegaly. Negative for costovertebral tenderness. Pelvis: Stable nontender. Genitourinary: Deferred. Rectal: Deferred. Skin: Intact, warm, dry. No lesions or rashes noted. Extremities: Atraumatic. Neurovascular unremarkable. There is some mild redness of the posterior calf that is not warm to the touch but is severely painful with firm palpation. Patient has severe pain of the left groin area on palpation with guarding. There is no redness, edema, or obvious cause of patient 's pain in the groin. Dorsalis pedis and posterior tibial pulses grossly intact of the left extremity with capillary refill less than 2 seconds. No crepitus to palpation. Neuro: Awake, alert, oriented. Cranial nerves II through XII unremarkable. Cerebellum unremarkable. Motor and sensory unremarkable throughout. Exam nonfocal. Notes: Dr. Soto directly involved in patient care. Dr. Pena consulted on patient and will admit to observation. Voices understanding and is agreeable to plan of care. Denies any further questions or concerns at this time. Diagnostics: Lower extremity venous Doppler, lower extremity arterial Doppler, chest x-ray, CBC, CMP, UA, lactate, blood cultures 2 Therapeutics: Saline x2, morphine, Ativan, Rocephin, Vancomycin Impression: Cellulitis, left leg Leukocytosis Plan: 1. Admit to observation to Dr. Pena. Definitive disposition and diagnosis as appropriate pending reevaluation and review of above. left calf Pain Score (Numeric/FACES): 10 - Related Data Allergies Allergy/AdvReac Type Severity Reaction Status Date / Time acetaminophen [From Vicodin] Allergy Swollen Verified 01/22/19 00:23 Tongue hydrocodone bitartrate Allergy Swollen Verified 01/22/19 00:23 [From Vicodin] Tongue Home Meds: Home Meds . [No Known Home Meds] 01/21/19 [History] Past Medical History - Past Health History Medical/Surgical History: Denies Medical/Surgical History Other HEENT History: wears glasses Cardiovascular History: Reports: Angina Other Cardiovascular History: will be checked by Dr. Bebeto Allison before -The patient told me that he saw Dr. Allison and he was cleared for surgery. Respiratory History: Reports: None Gastrointestinal History: Reports: GERD Genitourinary History: Reports: None Musculoskeletal History: Reports: Fracture Other Musculoskeletal History: left arm and left thumb Neurological History: Reports: None Psychiatric History: Reports: None Endocrine/Metabolic History: Reports: Hypothyroidism, Obesity/BMI 30+ Hematologic History: Reports: None Immunologic History: Reports: None Oncologic (Cancer) History: Reports: None Dermatologic History: Reports: None - Infectious Disease History Infectious Disease History: Reports: None - Past Surgical History Head Surgeries/Procedures: Reports: None HEENT Surgical History: Reports: None Cardiovascular Surgical History: Reports: None GI Surgical History: Reports: Appendectomy Male Surgical History: Reports: None Endocrine Surgical History: Reports: None Neurological Surgical History: Reports: None Musculoskeletal Surgical History: Reports: ORIF, Other (See Below) Other Musculoskeletal Surgeries/Procedures:: left arm surgery with plate and screws Oncologic Surgical History: Reports: None Dermatological Surgical History: Reports: None - History Comment History Comment: etoh "1x a week". Social & Family History - Family History Family Medical History: Noncontributory - Tobacco Use Smoking Status *Q: Current Every Day Smoker Years of Tobacco use: 15 Packs/Tins Daily: 0.5 - Caffeine Use Caffeine Use: Reports: Soda - Recreational Drug Use Recreational Drug Use: No ED ROS GENERAL - Review of Systems Review Of Systems: ROS reveals no pertinent complaints other than HPI. ED EXAM, SKIN/RASH Exam: See Below (see dictation) Course - Vital Signs Last Recorded V/S: Last Vital Signs Temp 38.3 C H 01/21/19 23:27 Pulse 122 H 01/21/19 23:27 Resp 20 01/21/19 23:27 BP 119/52 L 01/21/19 23:27 Pulse Ox 95 01/21/19 23:27 - Orders/Labs/Meds Orders: Active Orders 24 hr Category Date Time Status Admission Status [Patient Status] [ADT] Stat ADT 01/21/19 22:00 Active CULTURE BLOOD [BC] Stat Lab 01/21/19 19:12 Received CULTURE BLOOD [BC] Stat Lab 01/21/19 19:12 Received Blood Culture x2 Reflex Set [OM.PC] Stat Oth 01/21/19 18:56 Ordered Medication Orders Heparin Sodium (Porcine) (Heparin Sodium) 5,000 units SUBCUT Q8H MARCIA Hydromorphone HCl (Dilaudid) 1 mg IVPUSH Q3H PRN PRN Reason: Pain (severe 7-10) Piperacillin Sod/Tazobactam (Sod 3.375 gm/ Sodium Chloride) 50 mls @ 100 mls/ hr IV Q6H MARCIA Vancomycin HCl 2 gm/ Sodium (Chloride) 500 mls @ 333.333 mls/hr IV Q8H MARCIA Sodium Chloride (Normal Saline) 1,000 mls @ 125 mls/hr IV ASDIRECTED [facility] Vancomycin HCl (Pharmacy To Dose - Vancomycin) 1 dose .XX ASDIRECTED [facility] Labs: Laboratory Tests 01/21/19 01/21/19 01/21/19 Range/Units 19:12 19:12 19:12 WBC 23.78 H (4.0-11.0) K/uL RBC 5.32 (4.50-5.90) M/uL Hgb 16.0 (13.0-17.0) g/dL Hct 47.5 (38.0-50.0) % MCV 89.3 (80.0-98.0) fL MCH 30.1 (27.0-32.0) pg MCHC 33.7 (31.0-37.0) g/dL RDW Std Deviation 46.2 (28.0-62.0) fl RDW Coeff of Coreen 14 (11.0-15.0) % Plt Count 216 (150-400) K/uL MPV 11.00 (7.40-12.00) fL Add Manual Diff YES Neutrophils % (Manual) 85 H (48.0-80.0) % Band Neutrophils % 5 % Lymphocytes % (Manual) 4 L (16.0-40.0) % Monocytes % (Manual) 6 (0.0-15.0) % Nucleated RBC % 0.0 /100WBC Absolute Seg Neuts 20.2 H (1.4-5.7) Band Neutrophils # 1.2 Lymphocytes # (Manual) 1.0 (0.6-2.4) Monocytes # (Manual) 1.4 H (0.0-0.8) Nucleated RBCs # 0 K/uL INR APTT (18.6-31.3) SEC Lactate 2.0 (0.20-2.00) mmol/L Sodium 134 L (136-148) mmol/L Potassium 4.2 (3.5-5.1) mmol/L Chloride 100 (98-107) mmol/L Carbon Dioxide 23.3 (21.0-32.0) mmol/L BUN 11 (7.0-18.0) mg/dL Creatinine 1.1 (0.8-1.3) mg/dL Est Cr Clr Drug Dosing 106.48 mL/min Estimated GFR (MDRD) > 60.0 ml/min Glucose 104 (74-106) mg/dL Calcium 8.6 (8.5-10.1) mg/dL Total Bilirubin 0.4 (0.2-1.0) mg/dL AST 26 (15-37) IU/L ALT 52 (14-63) IU/L Alkaline Phosphatase 52 (46-116) U/L Total Protein 7.6 (6.4-8.2) g/dL Albumin 3.9 (3.4-5.0) g/dL Globulin 3.7 (2.6-4.0) g/dL Albumin/Globulin Ratio 1.1 (0.9-1.6) Urine Color Urine Appearance Urine pH (5.0-8.0) Ur Specific [place] (1.001-1.035) Urine Protein (NEGATIVE) mg/dL Urine Glucose (UA) (NEGATIVE) mg/dL Urine Ketones (NEGATIVE) mg/dL Urine Occult Blood (NEGATIVE) Urine Nitrite (NEGATIVE) Urine Bilirubin (NEGATIVE) Urine Urobilinogen (<2.0) EU/dL Ur Leukocyte Esterase (NEGATIVE) Urine RBC (0-2/HPF) Urine WBC (0-5/HPF) Ur Epithelial Cells (NONE-FEW) Urine Bacteria (NEGATIVE) 01/21/19 01/21/19 Range/Units 19:12 19:20 WBC (4.0-11.0) K/uL RBC (4.50-5.90) M/uL Hgb (13.0-17.0) g/dL Hct (38.0-50.0) % MCV (80.0-98.0) fL MCH (27.0-32.0) pg MCHC (31.0-37.0) g/dL RDW Std Deviation (28.0-62.0) fl RDW Coeff of Coreen (11.0-15.0) % Plt Count (150-400) K/uL MPV (7.40-12.00) fL Add Manual Diff Neutrophils % (Manual) (48.0-80.0) % Band Neutrophils % % Lymphocytes % (Manual) (16.0-40.0) % Monocytes % (Manual) (0.0-15.0) % Nucleated RBC % /100WBC Absolute Seg Neuts (1.4-5.7) Band Neutrophils # Lymphocytes # (Manual) (0.6-2.4) Monocytes # (Manual) (0.0-0.8) Nucleated RBCs # K/uL INR 1.02 APTT 27.2 (18.6-31.3) SEC Lactate (0.20-2.00) mmol/L Sodium (136-148) mmol/L Potassium (3.5-5.1) mmol/L Chloride (98-107) mmol/L Carbon Dioxide (21.0-32.0) mmol/L BUN (7.0-18.0) mg/dL Creatinine (0.8-1.3) mg/dL Est Cr Clr Drug Dosing mL/min Estimated GFR (MDRD) ml/min Glucose (74-106) mg/dL Calcium (8.5-10.1) mg/dL Total Bilirubin (0.2-1.0) mg/dL AST (15-37) IU/L ALT (14-63) IU/L Alkaline Phosphatase (46-116) U/L Total Protein (6.4-8.2) g/dL Albumin (3.4-5.0) g/dL Globulin (2.6-4.0) g/dL Albumin/Globulin Ratio (0.9-1.6) Urine Color YELLOW Urine Appearance CLEAR Urine pH 7.0 (5.0-8.0) Ur Specific [place] 1.015 (1.001-1.035) Urine Protein 30 H (NEGATIVE) mg/dL Urine Glucose (UA) NEGATIVE (NEGATIVE) mg/dL Urine Ketones NEGATIVE (NEGATIVE) mg/dL Urine Occult Blood NEGATIVE (NEGATIVE) Urine Nitrite NEGATIVE (NEGATIVE) Urine Bilirubin NEGATIVE (NEGATIVE) Urine Urobilinogen 0.2 (<2.0) EU/dL Ur Leukocyte Esterase NEGATIVE (NEGATIVE) Urine RBC 0-1 (0-2/HPF) Urine WBC 0-1 (0-5/HPF) Ur Epithelial Cells FEW (NONE-FEW) Urine Bacteria FEW (NEGATIVE) Meds: Medications Generic Name Dose Route Start Last Admin Trade Name Freq PRN Reason Stop Dose Admin Heparin Sodium (Porcine) 5,000 units 01/21/19 23:00 Heparin Sodium SUBCUT Q8H MARCIA Hydromorphone HCl 1 mg 01/21/19 22:47 Dilaudid IVPUSH Q3H PRN Pain (severe 7-10) Piperacillin Sod/Tazobactam 50 mls @ 100 mls/hr 01/21/19 23:00 Sod 3.375 gm/ Sodium Chloride IV Q6H MARCIA Vancomycin HCl 2 gm/ Sodium 500 mls @ 333.333 mls/hr 01/22/19 08:00 Chloride IV Q8H MARCIA Sodium Chloride 1,000 mls @ 125 mls/hr 01/22/19 00:30 Normal Saline IV ASDIRECTED [facility]ARC[facility] Vancomycin HCl 1 dose 01/21/19 23:00 Pharmacy To Dose - Vancomycin .XX ASDIRECTED MARCIA Discontinued Medications Generic Name Dose Route Start Last Admin Trade Name Freq PRN Reason Stop Dose Admin Sodium Chloride 1,000 mls @ 999 mls/hr 01/21/19 18:58 01/21/19 19:17 Normal Saline IV 01/21/19 19:58 999 mls/hr STAT ONE Administration Ceftriaxone Sodium/Dextrose 1 50 mls @ 100 mls/hr 01/21/19 21:33 01/21/19 21: 43 gm/ Premix IV 01/21/19 22:02 100 mls/hr ONETIME ONE Administration Sodium Chloride 1,000 mls @ 999 mls/hr 01/21/19 21:33 01/21/19 21:43 Normal Saline IV 01/21/19 22:33 999 mls/hr STAT ONE Administration Vancomycin HCl 1 gm/ Sodium 250 mls @ 250 mls/hr 01/21/19 21:58 01/21/19 23: 47 Chloride IV 01/21/19 22:57 Not Given ONETIME ONE Vancomycin HCl 1 gm/ Sodium 250 mls @ 166 mls/hr 01/21/19 23:00 01/21/19 23: 14 Chloride IV 01/22/19 00:30 166 mls/hr ONETIME ONE Administration Sodium Chloride Confirm 01/21/19 23:05 01/21/19 23:48 Normal Saline Administered 01/21/19 23:06 Not Given Dose 250 mls @ as directed .ROUTE .STK-MED ONE Ibuprofen 600 mg 01/21/19 19:35 01/21/19 19:46 Motrin PO 01/21/19 19:36 600 mg ONETIME ONE Administration Lorazepam 1 mg 01/21/19 19:04 01/21/19 19:19 Ativan IVPUSH 01/21/19 19:05 1 mg ONETIME ONE Administration Morphine Sulfate 2 mg 01/21/19 18:58 01/21/19 19:16 Morphine IVPUSH 01/21/19 18:59 2 mg ONETIME ONE Administration Morphine Sulfate 2 mg 01/21/19 21:33 01/21/19 21:44 Morphine IVPUSH 01/21/19 21:34 2 mg ONETIME ONE Administration Vancomycin HCl Confirm 01/21/19 23:02 01/21/19 23:15 Vancomycin Administered 01/21/19 23:03 Not Given Dose 1 gm .ROUTE .STK-MED ONE Departure - Departure Time of Disposition: 22:04 Disposition: Refer to Observation Clinical Impression: Cellulitis Qualifiers: Site of cellulitis: extremity Site of cellulitis of extremity: lower extremity Laterality: left Qualified Code(s): L03.116 - Cellulitis of left lower limb Leukocytosis Qualifiers: Leukocytosis type: unspecified Qualified Code(s): D72.829 - Elevated white blood cell count, unspecified - Discharge Information <Leonor Wells - Last Filed: 01/22/19 00:45> ED HPI GENERAL MEDICAL PROBLEM - History of Present Illness INITIAL COMMENTS - FREE TEXT/NARRATIVE: X-rays of the entire left leg were performed and showed no significant subcutaneous gas. Dr. Pena was made aware of this and he actually did come to the ED and evaluate this patient personally prior to transfer to the floor
[2019-01-21] MEDS ORDERED: Ibuprofen 600 MG Tab PO ONE (19:35)
[2019-01-21 20:01] LABS: CHLORIDE,CL 100 mmol/L (98-107); SODIUM,NA 134 mmol/L (136-148)
--- NOTE | 2019-01-21 20:14 | CR ---
Indication: Shortness breath. Technique: Single AP portable view of the chest was obtained. Comparison: June 02, 2018. Findings: The heart is normal in size. The lungs are clear. No infiltrate, pleural effusion, or pneumothorax is identified. Impression: No acute cardiopulmonary process. Dictated by Zenobia Chavarria MD @ Jan 21 2019 8:12PM Signed by Dr. Zenobia Chavarria @ Jan 21 2019 8:13PM
[2019-01-21] MEDS ORDERED: cefTRIAXone 1 GM in Premix Bag 1 BAG IV ONE (21:33)
--- NOTE | 2019-01-21 21:52 | US ---
Exam: The left lower extremity arteries were examined per exam specific protocol with plata-scale ultrasound, color-flow and Doppler spectral analysis. Peak systolic velocities (PSV), Doppler waveform quality and velocity ratios if applicable, were documented at sites per exam specific protocol. Indication: Left leg and groin pain. Comparison: None. Findings: Patent left lower extremity arteries with multiphasic flow throughout. Peak systolic velocities measure 109 cm/sec in the HORTICULTURE SUPERVISOR, 104 cm/sec in the proximal SFA, 73 cm/sec in the mid SFA, 102 cm/sec in the distal SFA, 103 cm/sec in the proximal popliteal artery, 75 cm/sec in the distal popliteal artery, 59-162 cm/sec in the TRAFFIC ANALYST, 108 cm/sec in the NERIS, and 63 cm/sec in the DPA. Impression: Patent left lower extremity arteries with multiphasic flow. No evidence of a hemodynamically significant stenosis. Dictated by Luis Zambrano MD @ Jan 22 2019 8:17AM (Electronically Signed)
--- NOTE | 2019-01-21 21:52 | US ---
INDICATION: left leg pain LEFT LOWER EXTREMITY VENOUS DUPLEX ULTRASOUND TECHNIQUE: Duplex sonography using grayscale imaging as well as color and spectral Doppler interrogation was performed over the left lower extremity with attention to the deep venous system. FINDINGS: The left common femoral, femoral, deep femoral, popliteal, and posterior tibial veins show normal compressibility, color Doppler flow, and augmentation response. IMPRESSION: No evidence of deep venous thrombosis in the left lower extremity. KELSIE HILL MD [facility] Dictated by: Suhail Hill MD @ 01/21/2019 21:51:48 (Electronically Signed)
[2019-01-21] MEDS ORDERED: HYDROmorphone 2 MG/ML SDV IVPUSH PRN (22:47)
--- NOTE | 2019-01-21 22:55 | PCM.HP ---
H&P History of Present Illness - General Date of Service: 01/21/19 Admit Problem/Dx: Admission Diagnosis/Problem Admission Diagnosis/Problem Cellulitis - History of Present Illness Initial Comments - Free Text/Narative: 28 yo male with pmh of recurrent left leg cellulitis. He presents to the ED with complaints of left leg pain and fevers. The pain starts at the hip and goes all the way down to his feet. Patient is known to develop erythema after admission. He denies any shortness of breath, chest pain or bleeding. left calf Pain Score (Numeric/FACES): 10 - Related Data Allergies/Adverse Reactions: Allergies Allergy/AdvReac Type Severity Reaction Status Date / Time acetaminophen [From Vicodin] Allergy Swollen Verified 01/22/19 00:23 Tongue hydrocodone bitartrate Allergy Swollen Verified 01/22/19 00:23 [From Vicodin] Tongue Home Medications: Home Meds . [No Known Home Meds] 01/21/19 [History] Past Medical History - Past Health History Medical/Surgical History: Denies Medical/Surgical History Other HEENT History: wears glasses Cardiovascular History: Reports: Angina Other Cardiovascular History: will be checked by Dr. Bebeto Allison before -The patient told me that he saw Dr. Allison and he was cleared for surgery. Respiratory History: Reports: None Gastrointestinal History: Reports: GERD Genitourinary History: Reports: None Musculoskeletal History: Reports: Fracture Other Musculoskeletal History: left arm and left thumb Neurological History: Reports: None Psychiatric History: Reports: None Endocrine/Metabolic History: Reports: Hypothyroidism, Obesity/BMI 30+ Hematologic History: Reports: None Immunologic History: Reports: None Oncologic (Cancer) History: Reports: None Dermatologic History: Reports: None - Infectious Disease History Infectious Disease History: Reports: None - Past Surgical History Head Surgeries/Procedures: Reports: None HEENT Surgical History: Reports: None Cardiovascular Surgical History: Reports: None GI Surgical History: Reports: Appendectomy Male Surgical History: Reports: None Endocrine Surgical History: Reports: None Neurological Surgical History: Reports: None Musculoskeletal Surgical History: Reports: ORIF, Other (See Below) Other Musculoskeletal Surgeries/Procedures:: left arm surgery with plate and screws Oncologic Surgical History: Reports: None Dermatological Surgical History: Reports: None - History Comment History Comment: etoh "1x a week". Social & Family History - Family History Family Medical History: Noncontributory - Tobacco Use Smoking Status *Q: Current Every Day Smoker Years of Tobacco use: 15 Packs/Tins Daily: 0.5 - Caffeine Use Caffeine Use: Reports: Soda - Recreational Drug Use Recreational Drug Use: No H&P Review of Systems - Review of Systems: Review Of Systems: ROS reveals no pertinent complaints other than HPI. Exam - Exam Exam: See Below - Vital Signs Vital Signs: Last Vital Signs Temp 38.4 C H 01/21/19 21:33 Pulse 121 H 01/21/19 21:33 Resp 18 01/21/19 21:33 BP 124/81 01/21/19 21:33 Pulse Ox 98 01/21/19 21:33 Weight: 149.685 kg - Exam General: Alert, Oriented HEENT: Mucosa Moist & [place] Neck: Supple Lungs: Clear to Auscultation, Normal Respiratory Effort Cardiovascular: Regular Rate, Regular Rhythm GI/Abdominal Exam: Normal Bowel Sounds, Soft, Non-Tender Extremities: Other (legs covered in dirt, tattoes, he is tender to palpation in the left upper inguinal area) - Patient Data Lab Results Last 24 hrs: Laboratory Results - last 24 hr 01/21/19 01/21/19 01/21/19 Range/Units 19:12 19:12 19:12 WBC 23.78 H (4.0-11.0) K/uL RBC 5.32 (4.50-5.90) M/uL Hgb 16.0 (13.0-17.0) g/dL Hct 47.5 (38.0-50.0) % MCV 89.3 (80.0-98.0) fL MCH 30.1 (27.0-32.0) pg MCHC 33.7 (31.0-37.0) g/dL RDW Std Deviation 46.2 (28.0-62.0) fl RDW Coeff of Coreen 14 (11.0-15.0) % Plt Count 216 (150-400) K/uL MPV 11.00 (7.40-12.00) fL Add Manual Diff YES Neutrophils % (Manual) 85 H (48.0-80.0) % Band Neutrophils % 5 % Lymphocytes % (Manual) 4 L (16.0-40.0) % Monocytes % (Manual) 6 (0.0-15.0) % Nucleated RBC % 0.0 /100WBC Absolute Seg Neuts 20.2 H (1.4-5.7) Band Neutrophils # 1.2 Lymphocytes # (Manual) 1.0 (0.6-2.4) Monocytes # (Manual) 1.4 H (0.0-0.8) Nucleated RBCs # 0 K/uL INR APTT (18.6-31.3) SEC Lactate 2.0 (0.20-2.00) mmol/L Sodium 134 L (136-148) mmol/L Potassium 4.2 (3.5-5.1) mmol/L Chloride 100 (98-107) mmol/L Carbon Dioxide 23.3 (21.0-32.0) mmol/L BUN 11 (7.0-18.0) mg/dL Creatinine 1.1 (0.8-1.3) mg/dL Est Cr Clr Drug Dosing 106.48 mL/min Estimated GFR (MDRD) > 60.0 ml/min Glucose 104 (74-106) mg/dL Calcium 8.6 (8.5-10.1) mg/dL Total Bilirubin 0.4 (0.2-1.0) mg/dL AST 26 (15-37) IU/L ALT 52 (14-63) IU/L Alkaline Phosphatase 52 (46-116) U/L Total Protein 7.6 (6.4-8.2) g/dL Albumin 3.9 (3.4-5.0) g/dL Globulin 3.7 (2.6-4.0) g/dL Albumin/Globulin Ratio 1.1 (0.9-1.6) Urine Color Urine Appearance Urine pH (5.0-8.0) Ur Specific [place] (1.001-1.035) Urine Protein (NEGATIVE) mg/dL Urine Glucose (UA) (NEGATIVE) mg/dL Urine Ketones (NEGATIVE) mg/dL Urine Occult Blood (NEGATIVE) Urine Nitrite (NEGATIVE) Urine Bilirubin (NEGATIVE) Urine Urobilinogen (<2.0) EU/dL Ur Leukocyte Esterase (NEGATIVE) Urine RBC (0-2/HPF) Urine WBC (0-5/HPF) Ur Epithelial Cells (NONE-FEW) Urine Bacteria (NEGATIVE) 01/21/19 01/21/19 Range/Units 19:12 19:20 WBC (4.0-11.0) K/uL RBC (4.50-5.90) M/uL Hgb (13.0-17.0) g/dL Hct (38.0-50.0) % MCV (80.0-98.0) fL MCH (27.0-32.0) pg MCHC (31.0-37.0) g/dL RDW Std Deviation (28.0-62.0) fl RDW Coeff of Coreen (11.0-15.0) % Plt Count (150-400) K/uL MPV (7.40-12.00) fL Add Manual Diff Neutrophils % (Manual) (48.0-80.0) % Band Neutrophils % % Lymphocytes % (Manual) (16.0-40.0) % Monocytes % (Manual) (0.0-15.0) % Nucleated RBC % /100WBC Absolute Seg Neuts (1.4-5.7) Band Neutrophils # Lymphocytes # (Manual) (0.6-2.4) Monocytes # (Manual) (0.0-0.8) Nucleated RBCs # K/uL INR 1.02 APTT 27.2 (18.6-31.3) SEC Lactate (0.20-2.00) mmol/L Sodium (136-148) mmol/L Potassium (3.5-5.1) mmol/L Chloride (98-107) mmol/L Carbon Dioxide (21.0-32.0) mmol/L BUN (7.0-18.0) mg/dL Creatinine (0.8-1.3) mg/dL Est Cr Clr Drug Dosing mL/min Estimated GFR (MDRD) ml/min Glucose (74-106) mg/dL Calcium (8.5-10.1) mg/dL Total Bilirubin (0.2-1.0) mg/dL AST (15-37) IU/L ALT (14-63) IU/L Alkaline Phosphatase (46-116) U/L Total Protein (6.4-8.2) g/dL Albumin (3.4-5.0) g/dL Globulin (2.6-4.0) g/dL Albumin/Globulin Ratio (0.9-1.6) Urine Color YELLOW Urine Appearance CLEAR Urine pH 7.0 (5.0-8.0) Ur Specific [place] 1.015 (1.001-1.035) Urine Protein 30 H (NEGATIVE) mg/dL Urine Glucose (UA) NEGATIVE (NEGATIVE) mg/dL Urine Ketones NEGATIVE (NEGATIVE) mg/dL Urine Occult Blood NEGATIVE (NEGATIVE) Urine Nitrite NEGATIVE (NEGATIVE) Urine Bilirubin NEGATIVE (NEGATIVE) Urine Urobilinogen 0.2 (<2.0) EU/dL Ur Leukocyte Esterase NEGATIVE (NEGATIVE) Urine RBC 0-1 (0-2/HPF) Urine WBC 0-1 (0-5/HPF) Ur Epithelial Cells FEW (NONE-FEW) Urine Bacteria FEW (NEGATIVE) Result Diagrams: 01/23/19 06:43 01/23/19 06:43 Problem List Initiated/Reviewed/Updated: Yes Orders Last 24hrs: Active Orders 24 hr Category Date Time Status Admission Status [Patient Status] [ADT] Stat ADT 01/21/19 22:00 Active Oxygen Therapy [RC] PRN Care 01/21/19 22:47 Active Up ad Samina [RC] ASDIRECTED Care 01/21/19 22:47 Active VTE/DVT Education [RC] PER UNIT ROUTINE Care 01/21/19 22:47 Active Vital Signs [RC] Q4H Care 01/21/19 22:47 Active Regular Diet [DIET] Diet 01/21/19 Breakfast Active Femur Min 1V Lt [CR] Stat Exams 01/21/19 22:23 Ordered Tibia Fibula Lt [CR] Stat Exams 01/21/19 22:23 Ordered BASIC METABOLIC PANEL,BMP [CHEM] AM Lab 01/22/19 05:11 Ordered CBC WITH AUTO DIFF [HEME] AM Lab 01/22/19 05:11 Ordered CULTURE BLOOD [BC] Stat Lab 01/21/19 19:12 Received CULTURE BLOOD [BC] Stat Lab 01/21/19 19:12 Received HYDROmorphone [Dilaudid] Med 01/21/19 22:47 Active 1 mg IVPUSH Q3H PRN Heparin Sodium Med 01/21/19 23:00 Active 5,000 units SUBCUT Q8H Pharmacy to Dose - Vancomycin Med 01/21/19 23:00 Ordered 1 dose .XX ASDIRECTED Piperacillin/Tazobactam [Piperacil-Tazobact] 3.375 gm Med 01/21/19 23:00 Active Sodium Chloride 0.9% [Normal Saline] 50 ml IV Q6H Vancomycin [Vancocin] 1 gm Med 01/21/19 21:58 Active Sodium Chloride 0.9% [Normal Saline] 250 ml IV ONETIME Blood Culture x2 Reflex Set [OM.PC] Stat Oth 01/21/19 18:56 Ordered Resuscitation Status Routine Resus Stat 01/21/19 22:47 Ordered Medication Orders Heparin Sodium (Porcine) (Heparin Sodium) 5,000 units SUBCUT Q8H [facility]ARCIA Hydromorphone HCl (Dilaudid) 1 mg IVPUSH Q3H PRN PRN Reason: Pain (severe 7-10) Vancomycin HCl 1 gm/ Sodium (Chloride) 250 mls @ 250 mls/hr IV ONETIME ONE Stop: 01/21/19 22:57 Piperacillin Sod/Tazobactam (Sod 3.375 gm/ Sodium Chloride) 50 mls @ 100 mls/ hr IV Q6H MARCIA Vancomycin HCl (Pharmacy To Dose - Vancomycin) 1 dose .XX ASDIRECTED [facility] Assessment/Plan Comment:: 28 yo male admitted for left leg cellulitis. Treating with Vancomycin and Zosyn , cultures ordered.
[2019-01-21] MEDS ORDERED: Vancomycin 1 GM SDV ONE (23:02)
[2019-01-21] MEDS ORDERED: Sodium Chloride 0.9% 250 ML ONE (23:05)
--- NOTE | 2019-01-21 23:37 | CR ---
Indication: Leg pain Technique: Two views, 4 films Comparison: None Findings/Impression: Minimal soft tissue swelling without evidence of subcutaneous air. No fracture or destructive osseous lesions. Dictated by Noel Cheung MD @ Jan 21 2019 11:24PM Signed by Dr. Noel Cheung @ Jan 21 2019 11:35PM
--- NOTE | 2019-01-21 23:37 | CR ---
Indication: Leg pain Technique: Two views, 3 films Comparison: None Findings/Impression: No radiopaque foreign body or subcutaneous air seen. Bony mineralization is within normal limits. No evidence of fracture or destructive osseous changes. Dictated by Noel Cheung MD @ Jan 21 2019 11:35PM Signed by Dr. Noel Cheung @ Jan 21 2019 11:36PM
[2019-01-22] MEDS ORDERED: Sodium Chloride 0.9% 1,000 ML IV SCH (00:30)
[2019-01-22] MEDS: HYDROmorphone 1 MG/ML Syringe IVPUSH PRN ×6 (01:15→23:08)
[2019-01-22] MEDS: Heparin Sodium 5,000 Units/ML Vial SUBCUT SCH ×4 (01:18→23:08)
[2019-01-22] MEDS: Piperacillin/Tazobactam 3.375 GM in Sodium Chloride 0.9% 50 ML IV SCH ×5 (01:21→23:07)
[2019-01-22 05:55] LABS: CHLORIDE,CL 104 mmol/L (98-107); SODIUM,NA 136 mmol/L (136-148)
[2019-01-22] MEDS: Vancomycin 2 GM in Sodium Chloride 0.9% 500 ML IV SCH ×3 (08:28→23:46)
[2019-01-22] MEDS: Acetaminophen 500 MG Tab PO PRN ×2 (09:34→16:47)
[2019-01-22 09:43] LABS: HEMOGLOBIN A1C 5.3 % (4.5-6.2)
[2019-01-22] MEDS: Sodium Chloride 0.9% 1,000 ML IV SCH ×2 (10:07→15:51)
[2019-01-22] MEDS ORDERED: Iopamidol 755 MG/ML 500 ML Multipack Bottle IVPUSH STA (13:10)
--- NOTE | 2019-01-22 14:16 | CT ---
HISTORY: Pain and swelling. FINDINGS: The thigh was studied in the axial plane. Sagittal and coronal 2 dimensional reconstructions were then performed. Total of 100 mL of Isovue 370 was administered. There is slight patchy increased density in the subcutaneous fat along the lateral aspect of the left buttock and proximal thigh which could represent mild edema within the fat. There also appears to be skin thickening in this region. No fluid component is noted. There is no evidence for mass lesion. No soft tissue gas is seen. No abnormality of the musculature is noted. No bony abnormality is noted to suggest fracture or osteomyelitis. IMPRESSION: Evidence for mild edema within the subcutaneous fat along the lateral left buttock region and proximal thigh with skin thickening. These findings could represent cellulitis. No findings for soft tissue gas or abscess. Please note that all CT scans at this facility use dose modulation, iterative reconstruction, and/or weight-based dosing when appropriate to reduce radiation dose to as low as reasonably achievable. Dictated by Alexey Tucker MD @ Jan 22 2019 2:08PM Signed by Dr. Alexey Tucker @ Jan 22 2019 2:15PM
--- NOTE | 2019-01-22 14:49 | CT ---
HISTORY: Cellulitis. Pain. TECHNIQUE: CT pelvis with IV contrast. COMPARISON: Left femur radiographs 01/21/2019. FINDINGS: Portion of the right proximal femur and right hip region soft tissues are outside the field of view. Localized skin thickening and mild subcutaneous fat stranding in the left inguinal region (axial series 301 image 109). Mild skin thickening and mild subcutaneous fat infiltration in the lateral left gluteal subcutaneous fat and lateral left thigh. Enlarged left inguinal lymph node measures 19 mm short axis (series 301 image 92). Enlarged left external iliac lymph node measures 13 mm short axis (series 301 image 65). No fluid collection. No soft tissue gas. No fluid or fat stranding in the deep fascial planes. Muscle mass is maintained. No erosions. Bone islands in the left ischium and left femoral neck. No periostitis. No fracture. Left hip joint is maintained. Pubic symphysis and sacroiliac joints are maintained. IMPRESSION: 1. Skin thickening and mild subcutaneous fat stranding in the left inguinal region, lateral left gluteal region, and left thigh may be from edema and/or cellulitis. 2. No abscess or soft tissue gas. No findings to suggest deep soft tissue infection. 3. Enlarged left inguinal and pelvic lymph nodes, likely reactive. Please note that all CT scans at this facility use dose modulation, iterative reconstruction, and/or weight-based dosing when appropriate to reduce radiation dose to as low as reasonably achievable. Dictated by Neftaly Hodges MD @ Jan 22 2019 2:33PM (Electronically Signed)
--- NOTE | 2019-01-22 14:49 | CT ---
HISTORY: Cellulitis. Pain. TECHNIQUE: CT left tibia and fibula with IV contrast. COMPARISON: Radiographs 01/21/2019. FINDINGS: Mild circumferential stranding of subcutaneous fat in the lower leg. Irregularly shaped area of confluent infiltration of subcutaneous fat in the anteromedial proximal lower leg measuring 3.5 x 3 x 5.5 cm in maximum dimensions (axial series 301 image 235, sagittal series 304 image 114). No well-defined fluid collection. No fluid in the deep fascial planes. No soft tissue gas. No significant muscle atrophy. No erosions or periostitis. Left knee joint is maintained. Small left knee joint effusion. Osteochondral lesion of the lateral talar dome with subchondral cysts and a thin nondisplaced bone fragment. IMPRESSION: 1. Subcutaneous fat stranding throughout the lower leg compatible with cellulitis. 2. 3.5 x 3 x 5.5 cm area of confluence of confluent edema or possible phlegmon in the anteromedial proximal lower leg. No well-defined abscess. No soft tissue gas. 3. No findings to suggest deep soft tissue infection. 4. Small left knee joint effusion. Please note that all CT scans at this facility use dose modulation, iterative reconstruction, and/or weight-based dosing when appropriate to reduce radiation dose to as low as reasonably achievable. Dictated by Neftaly Hodges MD @ Jan 22 2019 2:33PM Signed by Dr. Neftaly Hodges @ Jan 22 2019 2:47PM
--- NOTE | 2019-01-22 15:32 | PCM.PN ---
- General Info Date of Service: 01/22/19 Subjective Update: Fever overnight. Patient complaining of pain in his left groin area. No abscess or rash seen. Tender to palpation. Denies chest pain, dyspnea. No abdominal pain or dysuria. - Patient Data Vitals - Most Recent: Last Vital Signs Temp 37.4 C 01/22/19 12:00 Pulse 103 H 01/22/19 12:00 Resp 22 H 01/22/19 12:00 BP 139/76 01/22/19 12:00 Pulse Ox 92 L 01/22/19 12:00 Weight - Most Recent: 149.459 kg I&O - Last 24 Hours: Intake & Output 01/22/19 01/22/19 01/22/19 06:59 14:59 22:59 Intake Total 610 Balance 610 Lab Results Last 24 Hours: Laboratory Results - last 24 hr 01/21/19 01/21/19 01/21/19 Range/Units 19:12 19:12 19:12 WBC 23.78 H (4.0-11.0) K/uL RBC 5.32 (4.50-5.90) M/uL Hgb 16.0 (13.0-17.0) g/dL Hct 47.5 (38.0-50.0) % MCV 89.3 (80.0-98.0) fL MCH 30.1 (27.0-32.0) pg MCHC 33.7 (31.0-37.0) g/dL RDW Std Deviation 46.2 (28.0-62.0) fl RDW Coeff of [place] 14 (11.0-15.0) % Plt Count 216 (150-400) K/uL MPV 11.00 (7.40-12.00) fL Add Manual Diff YES Neutrophils % (Manual) 85 H (48.0-80.0) % Band Neutrophils % 5 % Lymphocytes % (Manual) 4 L (16.0-40.0) % Monocytes % (Manual) 6 (0.0-15.0) % Nucleated RBC % 0.0 /100WBC Absolute Seg Neuts 20.2 H (1.4-5.7) Band Neutrophils # 1.2 Lymphocytes # (Manual) 1.0 (0.6-2.4) Monocytes # (Manual) 1.4 H (0.0-0.8) Nucleated RBCs # 0 K/uL INR APTT (18.6-31.3) SEC Lactate 2.0 (0.20-2.00) mmol/L Sodium 134 L (136-148) mmol/L Potassium 4.2 (3.5-5.1) mmol/L Chloride 100 (98-107) mmol/L Carbon Dioxide 23.3 (21.0-32.0) mmol/L BUN 11 (7.0-18.0) mg/dL Creatinine 1.1 (0.8-1.3) mg/dL Est Cr Clr Drug Dosing 106.48 mL/min Estimated GFR (MDRD) > 60.0 ml/min Glucose 104 (74-106) mg/dL Hemoglobin A1c (4.5-6.2) % Calcium 8.6 (8.5-10.1) mg/dL Total Bilirubin 0.4 (0.2-1.0) mg/dL AST 26 (15-37) IU/L ALT 52 (14-63) IU/L Alkaline Phosphatase 52 (46-116) U/L Total Protein 7.6 (6.4-8.2) g/dL Albumin 3.9 (3.4-5.0) g/dL Globulin 3.7 (2.6-4.0) g/dL Albumin/Globulin Ratio 1.1 (0.9-1.6) Urine Color Urine Appearance Urine pH (5.0-8.0) Ur Specific [place] (1.001-1.035) Urine Protein (NEGATIVE) mg/dL Urine Glucose (UA) (NEGATIVE) mg/dL Urine Ketones (NEGATIVE) mg/dL Urine Occult Blood (NEGATIVE) Urine Nitrite (NEGATIVE) Urine Bilirubin (NEGATIVE) Urine Urobilinogen (<2.0) EU/dL Ur Leukocyte Esterase (NEGATIVE) Urine RBC (0-2/HPF) Urine WBC (0-5/HPF) Ur Epithelial Cells (NONE-FEW) Urine Bacteria (NEGATIVE) 01/21/19 01/21/19 01/22/19 Range/Units 19:12 19:20 05:08 WBC 22.88 H (4.0-11.0) K/uL RBC 4.79 (4.50-5.90) M/uL Hgb 14.2 (13.0-17.0) g/dL Hct 43.6 (38.0-50.0) % MCV 91.0 (80.0-98.0) fL MCH 29.6 (27.0-32.0) pg MCHC 32.6 (31.0-37.0) g/dL RDW Std Deviation 48.2 (28.0-62.0) fl RDW Coeff of [place] 15 (11.0-15.0) % Plt Count 185 (150-400) K/uL MPV 10.60 (7.40-12.00) fL Add Manual Diff YES Neutrophils % (Manual) 69 (48.0-80.0) % Band Neutrophils % 17 % Lymphocytes % (Manual) 6 L (16.0-40.0) % Monocytes % (Manual) 8 (0.0-15.0) % Nucleated RBC % 0.0 /100WBC Absolute Seg Neuts 15.8 H (1.4-5.7) Band Neutrophils # 3.9 Lymphocytes # (Manual) 1.4 (0.6-2.4) Monocytes # (Manual) 1.8 H (0.0-0.8) Nucleated RBCs # 0 K/uL INR 1.02 APTT 27.2 (18.6-31.3) SEC Lactate (0.20-2.00) mmol/L Sodium (136-148) mmol/L Potassium (3.5-5.1) mmol/L Chloride (98-107) mmol/L Carbon Dioxide (21.0-32.0) mmol/L BUN (7.0-18.0) mg/dL Creatinine (0.8-1.3) mg/dL Est Cr Clr Drug Dosing mL/min Estimated GFR (MDRD) ml/min Glucose (74-106) mg/dL Hemoglobin A1c (4.5-6.2) % Calcium (8.5-10.1) mg/dL Total Bilirubin (0.2-1.0) mg/dL AST (15-37) IU/L ALT (14-63) IU/L Alkaline Phosphatase (46-116) U/L Total Protein (6.4-8.2) g/dL Albumin (3.4-5.0) g/dL Globulin (2.6-4.0) g/dL Albumin/Globulin Ratio (0.9-1.6) Urine Color YELLOW Urine Appearance CLEAR Urine pH 7.0 (5.0-8.0) Ur Specific [place] 1.015 (1.001-1.035) Urine Protein 30 H (NEGATIVE) mg/dL Urine Glucose (UA) NEGATIVE (NEGATIVE) mg/dL Urine Ketones NEGATIVE (NEGATIVE) mg/dL Urine Occult Blood NEGATIVE (NEGATIVE) Urine Nitrite NEGATIVE (NEGATIVE) Urine Bilirubin NEGATIVE (NEGATIVE) Urine Urobilinogen 0.2 (<2.0) EU/dL Ur Leukocyte Esterase NEGATIVE (NEGATIVE) Urine RBC 0-1 (0-2/HPF) Urine WBC 0-1 (0-5/HPF) Ur Epithelial Cells FEW (NONE-FEW) Urine Bacteria FEW (NEGATIVE) 01/22/19 01/22/19 Range/Units 05:08 05:08 WBC (4.0-11.0) K/uL RBC (4.50-5.90) M/uL Hgb (13.0-17.0) g/dL Hct (38.0-50.0) % MCV (80.0-98.0) fL MCH (27.0-32.0) pg MCHC (31.0-37.0) g/dL RDW Std Deviation (28.0-62.0) fl RDW Coeff of [place] (11.0-15.0) % Plt Count (150-400) K/uL MPV (7.40-12.00) fL Add Manual Diff Neutrophils % (Manual) (48.0-80.0) % Band Neutrophils % % Lymphocytes % (Manual) (16.0-40.0) % Monocytes % (Manual) (0.0-15.0) % Nucleated RBC % /100WBC Absolute Seg Neuts (1.4-5.7) Band Neutrophils # Lymphocytes # (Manual) (0.6-2.4) Monocytes # (Manual) (0.0-0.8) Nucleated RBCs # K/uL INR APTT (18.6-31.3) SEC Lactate (0.20-2.00) mmol/L Sodium 136 (136-148) mmol/L Potassium 4.1 (3.5-5.1) mmol/L Chloride 104 (98-107) mmol/L Carbon Dioxide 25.8 (21.0-32.0) mmol/L BUN 12 (7.0-18.0) mg/dL Creatinine 1.0 (0.8-1.3) mg/dL Est Cr Clr Drug Dosing 117.13 mL/min Estimated GFR (MDRD) > 60.0 ml/min Glucose 102 (74-106) mg/dL Hemoglobin A1c 5.3 (4.5-6.2) % Calcium 8.2 L (8.5-10.1) mg/dL Total Bilirubin (0.2-1.0) mg/dL AST (15-37) IU/L ALT (14-63) IU/L Alkaline Phosphatase (46-116) U/L Total Protein (6.4-8.2) g/dL Albumin (3.4-5.0) g/dL Globulin (2.6-4.0) g/dL Albumin/Globulin Ratio (0.9-1.6) Urine Color Urine Appearance Urine pH (5.0-8.0) Ur Specific [place] (1.001-1.035) Urine Protein (NEGATIVE) mg/dL Urine Glucose (UA) (NEGATIVE) mg/dL Urine Ketones (NEGATIVE) mg/dL Urine Occult Blood (NEGATIVE) Urine Nitrite (NEGATIVE) Urine Bilirubin (NEGATIVE) Urine Urobilinogen (<2.0) EU/dL Ur Leukocyte Esterase (NEGATIVE) Urine RBC (0-2/HPF) Urine WBC (0-5/HPF) Ur Epithelial Cells (NONE-FEW) Urine Bacteria (NEGATIVE) Med Orders - Current: Current Medications Acetaminophen (Tylenol Extra Strength) 500 mg PO Q6H PRN PRN Reason: Fever Last Admin: 01/22/19 09:34 Dose: 500 mg Heparin Sodium (Porcine) (Heparin Sodium) 5,000 units SUBCUT Q8H [facility] Last Admin: 01/22/19 15:00 Dose: 5,000 units Hydromorphone HCl (Dilaudid) 1 mg IVPUSH Q3H PRN PRN Reason: Pain (severe 7-10) Last Admin: 01/22/19 11:47 Dose: 1 mg Piperacillin Sod/Tazobactam (Sod 3.375 gm/ Sodium Chloride) 50 mls @ 100 mls/ hr IV Q6H [facility]IA Last Admin: 01/22/19 11:01 Dose: 100 mls/hr Vancomycin HCl 2 gm/ Sodium (Chloride) 500 mls @ 333.333 mls/hr IV Q8H [facility]ARCIA Last Admin: 01/22/19 08:28 Dose: 333.333 mls/hr Sodium Chloride (Normal Saline) 1,000 mls @ 200 mls/hr IV STAT MARCIA Stop: 01/23/19 13:59 Last Admin: 01/22/19 10:07 Dose: 200 mls/hr Vancomycin HCl (Pharmacy To Dose - Vancomycin) 1 dose .XX ASDIRECTED [facility] Discontinued Medications Hydromorphone HCl (Dilaudid) 1 mg IVPUSH Q3H PRN PRN Reason: Pain (severe 7-10) Sodium Chloride (Normal Saline) 1,000 mls @ 999 mls/hr IV STAT ONE Stop: 01/21/19 19:58 Last Admin: 01/21/19 19:17 Dose: 999 mls/hr Ceftriaxone Sodium/Dextrose 1 (gm/ Premix) 50 mls @ 100 mls/hr IV ONETIME ONE Stop: 01/21/19 22:02 Last Admin: 01/21/19 21:43 Dose: 100 mls/hr Sodium Chloride (Normal Saline) 1,000 mls @ 999 mls/hr IV STAT ONE Stop: 01/21/19 22:33 Last Admin: 01/21/19 21:43 Dose: 999 mls/hr Vancomycin HCl 1 gm/ Sodium (Chloride) 250 mls @ 250 mls/hr IV ONETIME ONE Stop: 01/21/19 22:57 Last Admin: 01/21/19 23:47 Dose: Not Given Vancomycin HCl 1 gm/ Sodium (Chloride) 250 mls @ 166 mls/hr IV ONETIME ONE Stop: 01/22/19 00:30 Last Admin: 01/21/19 23:14 Dose: 166 mls/hr Sodium Chloride (Normal Saline) Confirm Administered Dose 250 mls @ as directed .ROUTE .STK-MED ONE Stop: 01/21/19 23:06 Last Admin: 01/21/19 23:48 Dose: Not Given Sodium Chloride (Normal Saline) 1,000 mls @ 125 mls/hr IV ASDIRECTED [facility] Last Admin: 01/22/19 00:50 Dose: 125 mls/hr Ibuprofen (Motrin) 600 mg PO ONETIME ONE Stop: 01/21/19 19:36 Last Admin: 01/21/19 19:46 Dose: 600 mg Iopamidol (Isovue Multipack-370 (76%)) 100 ml IVPUSH ONETIME STA Stop: 01/22/19 13:11 Last Admin: 01/22/19 13:11 Dose: 100 ml Lorazepam (Ativan) 1 mg IVPUSH ONETIME ONE Stop: 01/21/19 19:05 Last Admin: 01/21/19 19:19 Dose: 1 mg Morphine Sulfate (Morphine) 2 mg IVPUSH ONETIME ONE Stop: 01/21/19 18:59 Last Admin: 01/21/19 19:16 Dose: 2 mg Morphine Sulfate (Morphine) 2 mg IVPUSH ONETIME ONE Stop: 01/21/19 21:34 Last Admin: 01/21/19 21:44 Dose: 2 mg Vancomycin HCl (Vancomycin) Confirm Administered Dose 1 gm .ROUTE .STK-MED ONE Stop: 01/21/19 23:03 Last Admin: 01/21/19 23:15 Dose: Not Given - Exam General: Alert, Oriented, Cooperative, No Acute Distress Lungs: Clear to Auscultation, Normal Respiratory Effort. No: Crackles, Wheezing Cardiovascular: Regular Rate, Regular Rhythm GI/Abdominal Exam: Normal Bowel Sounds, Soft, Non-Tender, No Distention Extremities: Other (There is an area of cellulitis on left lower extremity. warm and tender to palpation. No cuts or open skin areas. ) Skin: Warm - Problem List Review Problem List Initiated/Reviewed/Updated: Yes - My Orders Last 24 Hours: My Active Orders 01/22/19 09:00 Sodium Chloride 0.9% [Normal Saline] 1,000 ml IV STAT 01/22/19 09:02 Acetaminophen [Tylenol Extra Strength] 500 mg PO Q6H PRN 01/22/19 Dinner Regular Diet [DIET] 01/22/19 Lunch NPO [Nothing Per Oral Diet] [DIET] - Plan Plan:: A: 1. Sepsis 2/2 left leg cellulitis 2. left groin pain P: 1. Sepsis 2/2 cellulitis. Continue with IV fluids, vancomycin and sozyn. Acetaminophen for fevers and dilaudid for pain. 2. Left groin pain, suspicious for necrotizing fascitis. However, CT of left groin area did not show any necrotizing fascitis. dispo: 1-2 days
[2019-01-22] MEDS ORDERED: Ketorolac 30 MG/ML SDV IVPUSH PRN (17:01)
[2019-01-23] MEDS: HYDROmorphone 1 MG/ML Syringe IVPUSH PRN ×6 (01:47→13:21)
[2019-01-23] MEDS: Acetaminophen 500 MG Tab PO PRN ×2 (03:59→15:30)
[2019-01-23] MEDS: Piperacillin/Tazobactam 3.375 GM in Sodium Chloride 0.9% 50 ML IV SCH ×4 (04:00→22:18)
[2019-01-23] MEDS: Heparin Sodium 5,000 Units/ML Vial SUBCUT SCH ×3 (06:18→22:18)
[2019-01-23 07:10] LABS: CHLORIDE,CL 107 mmol/L (98-107); SODIUM,NA 137 mmol/L (136-148)
[2019-01-23] MEDS: Vancomycin 2 GM in Sodium Chloride 0.9% 500 ML IV SCH ×3 (08:57→23:05)
[2019-01-23] MEDS ORDERED: oxyCODONE 5 MG Tab PO PRN ×2 (10:26→14:37)
--- NOTE | 2019-01-23 10:45 | PCM.PN ---
- General Info Date of Service: 01/23/19 - Review of Systems Systems Review Comment:: feeling better, reports pain in right leg - Patient Data Vitals - Most Recent: Last Vital Signs Temp 36.3 C 01/23/19 08:05 Pulse 93 01/23/19 08:05 Resp 16 01/23/19 08:05 BP 151/93 H 01/23/19 08:05 Pulse Ox 98 01/23/19 08:05 Weight - Most Recent: 149.685 kg I&O - Last 24 Hours: Intake & Output 01/22/19 01/23/19 01/23/19 22:59 06:59 14:59 Intake Total 3296 1768 Output Total 2400 1100 Balance 896 668 Lab Results Last 24 Hours: Laboratory Results - last 24 hr 01/23/19 01/23/19 01/23/19 Range/Units 06:43 06:43 07:35 WBC 14.94 H (4.0-11.0) K/uL RBC 4.52 (4.50-5.90) M/uL Hgb 13.1 (13.0-17.0) g/dL Hct 41.4 (38.0-50.0) % MCV 91.6 (80.0-98.0) fL MCH 29.0 (27.0-32.0) pg MCHC 31.6 (31.0-37.0) g/dL RDW Std Deviation 49.2 (28.0-62.0) fl RDW Coeff of Coreen 15 (11.0-15.0) % Plt Count 170 (150-400) K/uL MPV 10.30 (7.40-12.00) fL Add Manual Diff YES Neutrophils % (Manual) 71 (48.0-80.0) % Band Neutrophils % 7 % Lymphocytes % (Manual) 12 L (16.0-40.0) % Monocytes % (Manual) 7 (0.0-15.0) % Eosinophils % (Manual) 3 (0.0-7.0) % Nucleated RBC % 0.0 /100WBC Absolute Seg Neuts 10.6 H (1.4-5.7) Band Neutrophils # 1.0 Lymphocytes # (Manual) 1.8 (0.6-2.4) Monocytes # (Manual) 1.0 H (0.0-0.8) Eosinophils # (Manual) 0.4 (0.0-0.7) Nucleated RBCs # 0 K/uL Sodium 137 (136-148) mmol/L Potassium 4.4 (3.5-5.1) mmol/L Chloride 107 (98-107) mmol/L Carbon Dioxide 23.8 (21.0-32.0) mmol/L BUN 9 (7.0-18.0) mg/dL Creatinine 0.9 (0.8-1.3) mg/dL Est Cr Clr Drug Dosing 130.15 mL/min Estimated GFR (MDRD) > 60.0 ml/min Glucose 108 H (74-106) mg/dL Calcium 8.0 L (8.5-10.1) mg/dL Vancomycin Trough 8.7 (5.0-10.0) ug/mL [facility] Results Last 24 Hours: Microbiology 01/21/19 19:12 Aerobic Blood Culture - Preliminary Blood - Venous - Lab Draw NO GROWTH AFTER 1 DAY Anaerobic Blood Culture - Preliminary NO GROWTH AFTER 1 DAY 01/21/19 19:12 Aerobic Blood Culture - Preliminary Blood - Venous NO GROWTH AFTER 1 DAY Anaerobic Blood Culture - Preliminary NO GROWTH AFTER 1 DAY Med Orders - Current: Current Medications Acetaminophen (Tylenol Extra Strength) 500 mg PO Q6H PRN PRN Reason: Fever Last Admin: 01/23/19 03:59 Dose: 500 mg Heparin Sodium (Porcine) (Heparin Sodium) 5,000 units SUBCUT Q8H [facility] Last Admin: 01/23/19 06:18 Dose: 5,000 units Hydromorphone HCl (Dilaudid) 1 mg IVPUSH Q2H PRN PRN Reason: Pain (severe 7-10) Last Admin: 01/23/19 08:48 Dose: 1 mg Piperacillin Sod/Tazobactam (Sod 3.375 gm/ Sodium Chloride) 50 mls @ 100 mls/ hr IV Q6H [facility] Last Admin: 01/23/19 04:00 Dose: 100 mls/hr Vancomycin HCl 2 gm/ Sodium (Chloride) 500 mls @ 333.333 mls/hr IV Q8H [facility] Last Admin: 01/23/19 08:57 Dose: 333.333 mls/hr Sodium Chloride (Normal Saline) 1,000 mls @ 200 mls/hr IV STAT [facility] Stop: 01/23/19 13:59 Last Admin: 01/22/19 15:51 Dose: 200 mls/hr Oxycodone HCl (Oxycodone) 5 mg PO Q4H PRN PRN Reason: Pain Vancomycin HCl (Pharmacy To Dose - Vancomycin) 1 dose .XX ASDIRECTED [facility] Discontinued Medications Hydromorphone HCl (Dilaudid) 1 mg IVPUSH Q3H PRN PRN Reason: Pain (severe 7-10) Hydromorphone HCl (Dilaudid) 1 mg IVPUSH Q3H PRN PRN Reason: Pain (severe 7-10) Last Admin: 01/22/19 15:54 Dose: 1 mg Sodium Chloride (Normal Saline) 1,000 mls @ 999 mls/hr IV STAT ONE Stop: 01/21/19 19:58 Last Admin: 01/21/19 19:17 Dose: 999 mls/hr Ceftriaxone Sodium/Dextrose 1 (gm/ Premix) 50 mls @ 100 mls/hr IV ONETIME ONE Stop: 01/21/19 22:02 Last Admin: 01/21/19 21:43 Dose: 100 mls/hr Sodium Chloride (Normal Saline) 1,000 mls @ 999 mls/hr IV STAT ONE Stop: 01/21/19 22:33 Last Admin: 01/21/19 21:43 Dose: 999 mls/hr Vancomycin HCl 1 gm/ Sodium (Chloride) 250 mls @ 250 mls/hr IV ONETIME ONE Stop: 01/21/19 22:57 Last Admin: 01/21/19 23:47 Dose: Not Given Vancomycin HCl 1 gm/ Sodium (Chloride) 250 mls @ 166 mls/hr IV ONETIME ONE Stop: 01/22/19 00:30 Last Admin: 01/21/19 23:14 Dose: 166 mls/hr Sodium Chloride (Normal Saline) Confirm Administered Dose 250 mls @ as directed .ROUTE .STK-MED ONE Stop: 01/21/19 23:06 Last Admin: 01/21/19 23:48 Dose: Not Given Sodium Chloride (Normal Saline) 1,000 mls @ 125 mls/hr IV ASDIRECTED [facility] Last Admin: 01/22/19 00:50 Dose: 125 mls/hr Ibuprofen (Motrin) 600 mg PO ONETIME ONE Stop: 01/21/19 19:36 Last Admin: 01/21/19 19:46 Dose: 600 mg Iopamidol (Isovue Multipack-370 (76%)) 100 ml IVPUSH ONETIME STA Stop: 01/22/19 13:11 Last Admin: 01/22/19 13:11 Dose: 100 ml Ketorolac Tromethamine (Toradol) 30 mg IVPUSH Q6H PRN PRN Reason: Pain Stop: 01/27/19 17:01 Last Admin: 01/22/19 17:52 Dose: 30 mg Lorazepam (Ativan) 1 mg IVPUSH ONETIME ONE Stop: 01/21/19 19:05 Last Admin: 01/21/19 19:19 Dose: 1 mg Morphine Sulfate (Morphine) 2 mg IVPUSH ONETIME ONE Stop: 01/21/19 18:59 Last Admin: 01/21/19 19:16 Dose: 2 mg Morphine Sulfate (Morphine) 2 mg IVPUSH ONETIME ONE Stop: 01/21/19 21:34 Last Admin: 01/21/19 21:44 Dose: 2 mg Vancomycin HCl (Vancomycin) Confirm Administered Dose 1 gm .ROUTE .STK-MED ONE Stop: 01/21/19 23:03 Last Admin: 01/21/19 23:15 Dose: Not Given - Exam General: Alert, Oriented Neck: Supple Lungs: Clear to Auscultation, Normal Respiratory Effort Cardiovascular: Regular Rate, Regular Rhythm Extremities: Other (erythema of right lower calf stable ) - Problem List Review Problem List Initiated/Reviewed/Updated: Yes - My Orders Last 24 Hours: My Active Orders 01/24/19 05:11 BASIC METABOLIC PANEL,BMP [CHEM] AM CBC WITH AUTO DIFF [HEME] AM 01/25/19 05:11 BASIC METABOLIC PANEL,BMP [CHEM] AM CBC WITH AUTO DIFF [HEME] AM - Plan Plan:: 28 yo male admitted for left leg cellulitis. CT of the leg did not show any abscess or deep tissue infection. We will continue Vancomycin and Zosyn. IV Dilaudid and oxycodone prn for pain control.
[2019-01-23] MEDS: HYDROmorphone 2 MG Tab PO PRN ×3 (15:20→21:30)
[2019-01-24] MEDS: HYDROmorphone 2 MG Tab PO PRN ×6 (00:54→23:36)
[2019-01-24] MEDS: Piperacillin/Tazobactam 3.375 GM in Sodium Chloride 0.9% 50 ML IV SCH ×4 (05:30→22:05)
[2019-01-24] MEDS: Heparin Sodium 5,000 Units/ML Vial SUBCUT SCH ×3 (06:18→22:05)
[2019-01-24 07:05] LABS: CHLORIDE,CL 105 mmol/L (98-107); SODIUM,NA 138 mmol/L (136-148)
--- NOTE | 2019-01-24 08:43 | PCM.PN ---
- General Info Date of Service: 01/24/19 - Review of Systems Systems Review Comment:: pain is better controlled today. - Patient Data Vitals - Most Recent: Last Vital Signs Temp 36.3 C 01/24/19 00:00 Pulse 110 H 01/24/19 00:00 Resp 20 01/24/19 00:00 BP 133/72 01/24/19 00:00 Pulse Ox 95 01/24/19 00:00 Weight - Most Recent: 149.685 kg I&O - Last 24 Hours: Intake & Output 01/23/19 01/24/19 01/24/19 22:59 06:59 14:59 Intake Total 1950 1550 Output Total 1900 500 Balance 50 1050 Lab Results Last 24 Hours: Laboratory Results - last 24 hr 01/24/19 01/24/19 Range/Units 06:11 06:11 WBC 13.39 H (4.0-11.0) K/uL RBC 4.49 L (4.50-5.90) M/uL Hgb 13.2 (13.0-17.0) g/dL Hct 41.0 (38.0-50.0) % MCV 91.3 (80.0-98.0) fL MCH 29.4 (27.0-32.0) pg MCHC 32.2 (31.0-37.0) g/dL RDW Std Deviation 48.7 (28.0-62.0) fl RDW Coeff of Coreen 15 (11.0-15.0) % Plt Count 187 (150-400) K/uL MPV 10.50 (7.40-12.00) fL Add Manual Diff YES Neutrophils % (Manual) 63 (48.0-80.0) % Band Neutrophils % 12 % Lymphocytes % (Manual) 18 (16.0-40.0) % Monocytes % (Manual) 5 (0.0-15.0) % Eosinophils % (Manual) 2 (0.0-7.0) % Nucleated RBC % 0.0 /100WBC Absolute Seg Neuts 8.4 H (1.4-5.7) Band Neutrophils # 1.6 Lymphocytes # (Manual) 2.4 (0.6-2.4) Monocytes # (Manual) 0.7 (0.0-0.8) Eosinophils # (Manual) 0.3 (0.0-0.7) Nucleated RBCs # 0 K/uL Sodium 138 (136-148) mmol/L Potassium 4.0 (3.5-5.1) mmol/L Chloride 105 (98-107) mmol/L Carbon Dioxide 25.1 (21.0-32.0) mmol/L BUN 7 (7.0-18.0) mg/dL Creatinine 0.8 (0.8-1.3) mg/dL Est Cr Clr Drug Dosing 146.42 mL/min Estimated GFR (MDRD) > 60.0 ml/min Glucose 102 (74-106) mg/dL Calcium 8.4 L (8.5-10.1) mg/dL [facility] Results Last 24 Hours: Microbiology 01/21/19 19:12 Aerobic Blood Culture - Preliminary Blood - Venous - Lab Draw NO GROWTH AFTER 2 DAYS Anaerobic Blood Culture - Preliminary NO GROWTH AFTER 2 DAYS 01/21/19 19:12 Aerobic Blood Culture - Preliminary Blood - Venous NO GROWTH AFTER 2 DAYS Anaerobic Blood Culture - Preliminary NO GROWTH AFTER 2 DAYS Med Orders - Current: Current Medications Acetaminophen (Tylenol Extra Strength) 500 mg PO Q6H PRN PRN Reason: Fever Last Admin: 01/23/19 15:30 Dose: 500 mg Heparin Sodium (Porcine) (Heparin Sodium) 5,000 units SUBCUT Q8H [facility] Last Admin: 01/24/19 06:18 Dose: 5,000 units Hydromorphone HCl (Dilaudid) 4 mg PO Q3H PRN PRN Reason: Pain (severe 7-10) Last Admin: 01/24/19 05:41 Dose: 4 mg Piperacillin Sod/Tazobactam (Sod 3.375 gm/ Sodium Chloride) 50 mls @ 100 mls/ hr IV Q6H [facility] Last Admin: 01/24/19 05:30 Dose: 100 mls/hr Vancomycin HCl 2 gm/ Sodium (Chloride) 500 mls @ 333.333 mls/hr IV Q8H [facility] Last Admin: 01/23/19 23:05 Dose: 333.333 mls/hr Vancomycin HCl (Pharmacy To Dose - Vancomycin) 1 dose .XX ASDIRECTED [facility] Discontinued Medications Hydromorphone HCl (Dilaudid) 1 mg IVPUSH Q3H PRN PRN Reason: Pain (severe 7-10) Hydromorphone HCl (Dilaudid) 1 mg IVPUSH Q3H PRN PRN Reason: Pain (severe 7-10) Last Admin: 01/22/19 15:54 Dose: 1 mg Hydromorphone HCl (Dilaudid) 1 mg IVPUSH Q2H PRN PRN Reason: Pain (severe 7-10) Last Admin: 01/23/19 13:21 Dose: 1 mg Sodium Chloride (Normal Saline) 1,000 mls @ 999 mls/hr IV STAT ONE Stop: 01/21/19 19:58 Last Admin: 01/21/19 19:17 Dose: 999 mls/hr Ceftriaxone Sodium/Dextrose 1 (gm/ Premix) 50 mls @ 100 mls/hr IV ONETIME ONE Stop: 01/21/19 22:02 Last Admin: 01/21/19 21:43 Dose: 100 mls/hr Sodium Chloride (Normal Saline) 1,000 mls @ 999 mls/hr IV STAT ONE Stop: 01/21/19 22:33 Last Admin: 01/21/19 21:43 Dose: 999 mls/hr Vancomycin HCl 1 gm/ Sodium (Chloride) 250 mls @ 250 mls/hr IV ONETIME ONE Stop: 01/21/19 22:57 Last Admin: 01/21/19 23:47 Dose: Not Given Vancomycin HCl 1 gm/ Sodium (Chloride) 250 mls @ 166 mls/hr IV ONETIME ONE Stop: 01/22/19 00:30 Last Admin: 01/21/19 23:14 Dose: 166 mls/hr Sodium Chloride (Normal Saline) Confirm Administered Dose 250 mls @ as directed .ROUTE .STK-MED ONE Stop: 01/21/19 23:06 Last Admin: 01/21/19 23:48 Dose: Not Given Sodium Chloride (Normal Saline) 1,000 mls @ 125 mls/hr IV ASDIRECTED [facility] Last Admin: 01/22/19 00:50 Dose: 125 mls/hr Sodium Chloride (Normal Saline) 1,000 mls @ 200 mls/hr IV STAT [facility] Stop: 01/23/19 13:59 Last Admin: 01/22/19 15:51 Dose: 200 mls/hr Ibuprofen (Motrin) 600 mg PO ONETIME ONE Stop: 01/21/19 19:36 Last Admin: 01/21/19 19:46 Dose: 600 mg Iopamidol (Isovue Multipack-370 (76%)) 100 ml IVPUSH ONETIME STA Stop: 01/22/19 13:11 Last Admin: 01/22/19 13:11 Dose: 100 ml Ketorolac Tromethamine (Toradol) 30 mg IVPUSH Q6H PRN PRN Reason: Pain Stop: 01/27/19 17:01 Last Admin: 01/22/19 17:52 Dose: 30 mg Lorazepam (Ativan) 1 mg IVPUSH ONETIME ONE Stop: 01/21/19 19:05 Last Admin: 01/21/19 19:19 Dose: 1 mg Morphine Sulfate (Morphine) 2 mg IVPUSH ONETIME ONE Stop: 01/21/19 18:59 Last Admin: 01/21/19 19:16 Dose: 2 mg Morphine Sulfate (Morphine) 2 mg IVPUSH ONETIME ONE Stop: 01/21/19 21:34 Last Admin: 01/21/19 21:44 Dose: 2 mg Oxycodone HCl (Oxycodone) 5 mg PO Q4H PRN PRN Reason: Pain Last Admin: 01/23/19 10:56 Dose: 5 mg Oxycodone HCl (Oxycodone) 10 mg PO Q4H PRN PRN Reason: Pain Vancomycin HCl (Vancomycin) Confirm Administered Dose 1 gm .ROUTE .STK-MED ONE Stop: 01/21/19 23:03 Last Admin: 01/21/19 23:15 Dose: Not Given - Exam General: Alert, Oriented, No Acute Distress Neck: Supple Lungs: Clear to Auscultation, Normal Respiratory Effort Cardiovascular: Regular Rate, Regular Rhythm GI/Abdominal Exam: Soft, Non-Tender Extremities: Non-Tender, No Pedal Edema Skin: Warm, Dry, Intact Neurological: No New Focal Deficit - Problem List Review Problem List Initiated/Reviewed/Updated: Yes - My Orders Last 24 Hours: My Active Orders 01/25/19 05:11 BASIC METABOLIC PANEL,BMP [CHEM] AM CBC WITH AUTO DIFF [HEME] AM - Plan Plan:: 28 yo male admitted for left leg cellulitis. We will continue Vancomycin and Zosyn. PO dilaudid for pain control.
[2019-01-24] MEDS: Vancomycin 2 GM in Sodium Chloride 0.9% 500 ML IV SCH ×3 (08:55→23:01)
[2019-01-25] MEDS: Piperacillin/Tazobactam 3.375 GM in Sodium Chloride 0.9% 50 ML IV SCH (04:54)
[2019-01-25 06:20] LABS: CHLORIDE,CL 105 mmol/L (98-107); SODIUM,NA 140 mmol/L (136-148)
[2019-01-25] MEDS: Heparin Sodium 5,000 Units/ML Vial SUBCUT SCH (06:46)
[2019-01-25] MEDS: Vancomycin 2 GM in Sodium Chloride 0.9% 500 ML IV SCH (07:55)
--- NOTE | 2019-01-25 09:10 | PCM.DCSUM1 ---
<Hayden Ross - Last Filed: 01/25/19 09:07> Discharge Summary - Hospital Course Free Text/Narrative:: Hospital course: 28 y/o male admitted for left lower extremity cellulitis. He as started on Vancomycin and Zosyn. His fever resolved and white count improved. In addition, his pain was controlled. At time of discharge his pain was much improved requiring intermittent pain control. He was tolerating PO intake. He was discharged home on Bactrim and Keflex for total of 7 days. He was instructed to follow-up with his PCP. - Discharge Data Discharge Date: 01/25/19 Discharge Disposition: Home, Self-Care 01 Condition: Good - Patient Instructions Diet: Regular Diet as Tolerated Activity: As Tolerated Notify Provider of: Fever, Increased Pain, Swelling and Redness, Drainage, Nausea and/or Vomiting - Discharge Plan *PRESCRIPTION DRUG MONITORING PROGRAM REVIEWED*: Not Applicable *COPY OF PRESCRIPTION DRUG MONITORING REPORT IN PATIENT STACIA: Not Applicable Prescriptions/Med Rec: Cephalexin [Keflex] 500 mg PO QID 7 Days #28 capsule Sulfamethoxazole/Trimethoprim [Bactrim Ds Tablet] 1 each PO BID 7 Days #14 tablet Home Medications: Home Meds Cephalexin [Keflex] 500 mg PO QID 7 Days #28 capsule 01/25/19 [Rx] Sulfamethoxazole/Trimethoprim [Bactrim Ds Tablet] 1 each PO BID 7 Days #14 tablet 01/25/19 [Rx] Patient Handouts: Cellulitis, Adult, [id number], Cephalexin tablets or capsules, Sulfamethoxazole; Trimethoprim, [id number] tablets Referrals: Carey Stewart PA [Physician [facility]] - 02/02/19 2:00 pm - Discharge Summary/Plan Comment DC Time >30 min.: No - Patient Data Vitals - Most Recent: Last Vital Signs Temp 36.9 C 01/24/19 23:35 Pulse 99 01/24/19 23:35 Resp 20 01/24/19 23:35 BP 128/62 01/24/19 23:35 Pulse Ox 96 01/24/19 23:35 Weight - Most Recent: 149.685 kg I&O - Last 24 hours: Intake & Output 01/24/19 01/25/19 01/25/19 22:59 06:59 14:59 Intake Total 2700 2100 Output Total 1400 1800 Balance 1300 300 Lab Results - Last 24 hrs: Laboratory Results - last 24 hr 01/25/19 01/25/19 Range/Units 05:30 05:30 WBC 12.51 H (4.0-11.0) K/uL RBC 4.72 (4.50-5.90) M/uL Hgb 13.8 (13.0-17.0) g/dL Hct 42.8 (38.0-50.0) % MCV 90.7 (80.0-98.0) fL MCH 29.2 (27.0-32.0) pg MCHC 32.2 (31.0-37.0) g/dL RDW Std Deviation 47.2 (28.0-62.0) fl RDW Coeff of Coreen 14 (11.0-15.0) % Plt Count 220 (150-400) K/uL MPV 10.70 (7.40-12.00) fL Add Manual Diff YES Neutrophils % (Manual) 65 (48.0-80.0) % Band Neutrophils % 6 % Lymphocytes % (Manual) 20 (16.0-40.0) % Monocytes % (Manual) 6 (0.0-15.0) % Eosinophils % (Manual) 3 (0.0-7.0) % Nucleated RBC % 0.0 /100WBC Absolute Seg Neuts 8.1 H (1.4-5.7) Band Neutrophils # 0.8 Lymphocytes # (Manual) 2.5 H (0.6-2.4) Monocytes # (Manual) 0.8 (0.0-0.8) Eosinophils # (Manual) 0.4 (0.0-0.7) Nucleated RBCs # 0 K/uL Sodium 140 (136-148) mmol/L Potassium 4.3 (3.5-5.1) mmol/L Chloride 105 (98-107) mmol/L Carbon Dioxide 25.6 (21.0-32.0) mmol/L BUN 9 (7.0-18.0) mg/dL Creatinine 0.9 (0.8-1.3) mg/dL Est Cr Clr Drug Dosing 130.15 mL/min Estimated GFR (MDRD) > 60.0 ml/min Glucose 103 (74-106) mg/dL Calcium 8.4 L (8.5-10.1) mg/dL CHRISTA Results - Last 24 hrs: Microbiology 01/21/19 19:12 Aerobic Blood Culture - Preliminary Blood - Venous - Lab Draw NO GROWTH AFTER 3 DAYS Anaerobic Blood Culture - Preliminary NO GROWTH AFTER 3 DAYS 01/21/19 19:12 Aerobic Blood Culture - Preliminary Blood - Venous NO GROWTH AFTER 3 DAYS Anaerobic Blood Culture - Preliminary NO GROWTH AFTER 3 DAYS 01/24/19 11:50 Clostridium difficile Toxin A & B - Final Stool / Feces Negative for C.Diff Toxin/AG REFERENCE RANGE: NEGATIVE Med Orders - Current: Current Medications Acetaminophen (Tylenol Extra Strength) 500 mg PO Q6H PRN PRN Reason: Fever Last Admin: 01/23/19 15:30 Dose: 500 mg Heparin Sodium (Porcine) (Heparin Sodium) 5,000 units SUBCUT Q8H [facility] Last Admin: 01/25/19 06:46 Dose: 5,000 units Hydromorphone HCl (Dilaudid) 3 mg PO Q4H PRN PRN Reason: Pain (severe 7-10) Last Admin: 01/24/19 23:36 Dose: 3 mg Piperacillin Sod/Tazobactam (Sod 3.375 gm/ Sodium Chloride) 50 mls @ 100 mls/ hr IV Q6H [facility] Last Admin: 01/25/19 04:54 Dose: 100 mls/hr Vancomycin HCl 2 gm/ Sodium (Chloride) 500 mls @ 333.333 mls/hr IV Q8H [facility] Last Admin: 01/25/19 07:55 Dose: 333.333 mls/hr Vancomycin HCl (Pharmacy To Dose - Vancomycin) 1 dose .XX ASDIRECTED [facility] Discontinued Medications Hydromorphone HCl (Dilaudid) 1 mg IVPUSH Q3H PRN PRN Reason: Pain (severe 7-10) Hydromorphone HCl (Dilaudid) 1 mg IVPUSH Q3H PRN PRN Reason: Pain (severe 7-10) Last Admin: 01/22/19 15:54 Dose: 1 mg Hydromorphone HCl (Dilaudid) 1 mg IVPUSH Q2H PRN PRN Reason: Pain (severe 7-10) Last Admin: 01/23/19 13:21 Dose: 1 mg Hydromorphone HCl (Dilaudid) 4 mg PO Q3H PRN PRN Reason: Pain (severe 7-10) Last Admin: 01/24/19 05:41 Dose: 4 mg Sodium Chloride (Normal Saline) 1,000 mls @ 999 mls/hr IV STAT ONE Stop: 01/21/19 19:58 Last Admin: 01/21/19 19:17 Dose: 999 mls/hr Ceftriaxone Sodium/Dextrose 1 (gm/ Premix) 50 mls @ 100 mls/hr IV ONETIME ONE Stop: 01/21/19 22:02 Last Admin: 01/21/19 21:43 Dose: 100 mls/hr Sodium Chloride (Normal Saline) 1,000 mls @ 999 mls/hr IV STAT ONE Stop: 01/21/19 22:33 Last Admin: 01/21/19 21:43 Dose: 999 mls/hr Vancomycin HCl 1 gm/ Sodium (Chloride) 250 mls @ 250 mls/hr IV ONETIME ONE Stop: 01/21/19 22:57 Last Admin: 01/21/19 23:47 Dose: Not Given Vancomycin HCl 1 gm/ Sodium (Chloride) 250 mls @ 166 mls/hr IV ONETIME ONE Stop: 01/22/19 00:30 Last Admin: 01/21/19 23:14 Dose: 166 mls/hr Sodium Chloride (Normal Saline) Confirm Administered Dose 250 mls @ as directed .ROUTE .STK-MED ONE Stop: 01/21/19 23:06 Last Admin: 01/21/19 23:48 Dose: Not Given Sodium Chloride (Normal Saline) 1,000 mls @ 125 mls/hr IV ASDIRECTED MARCIA Last Admin: 01/22/19 00:50 Dose: 125 mls/hr Sodium Chloride (Normal Saline) 1,000 mls @ 200 mls/hr IV STAT MARCIA Stop: 01/23/19 13:59 Last Admin: 01/22/19 15:51 Dose: 200 mls/hr Ibuprofen (Motrin) 600 mg PO ONETIME ONE Stop: 01/21/19 19:36 Last Admin: 01/21/19 19:46 Dose: 600 mg Iopamidol (Isovue Multipack-370 (76%)) 100 ml IVPUSH ONETIME STA Stop: 01/22/19 13:11 Last Admin: 01/22/19 13:11 Dose: 100 ml Ketorolac Tromethamine (Toradol) 30 mg IVPUSH Q6H PRN PRN Reason: Pain Stop: 01/27/19 17:01 Last Admin: 01/22/19 17:52 Dose: 30 mg Lorazepam (Ativan) 1 mg IVPUSH ONETIME ONE Stop: 01/21/19 19:05 Last Admin: 01/21/19 19:19 Dose: 1 mg Morphine Sulfate (Morphine) 2 mg IVPUSH ONETIME ONE Stop: 01/21/19 18:59 Last Admin: 01/21/19 19:16 Dose: 2 mg Morphine Sulfate (Morphine) 2 mg IVPUSH ONETIME ONE Stop: 01/21/19 21:34 Last Admin: 01/21/19 21:44 Dose: 2 mg Oxycodone HCl (Oxycodone) 5 mg PO Q4H PRN PRN Reason: Pain Last Admin: 01/23/19 10:56 Dose: 5 mg Oxycodone HCl (Oxycodone) 10 mg PO Q4H PRN PRN Reason: Pain Vancomycin HCl (Vancomycin) Confirm Administered Dose 1 gm .ROUTE .STK-MED ONE Stop: 01/21/19 23:03 Last Admin: 01/21/19 23:15 Dose: Not Given <Gagandeep Alexandre - Last Filed: 01/25/19 10:45> Discharge Summary - Hospital Course HPI Initial Comments: I have seen and examined to patient independently of anesthesiology medical doctor, Hayden Castro MD. I have discussed the case for care of this patient with him. I have reviewed and approve of the plan of care as outlined by anesthesiology medical doctor. Please see orders. - Patient Data Vitals - Most Recent: Last Vital Signs Temp 37.1 C 01/25/19 09:00 Pulse 82 01/25/19 09:00 Resp 16 01/25/19 09:00 BP 142/85 H 01/25/19 09:00 Pulse Ox 94 L 01/25/19 09:00 I&O - Last 24 hours: Intake & Output 01/24/19 01/25/19 01/25/19 22:59 06:59 14:59 Intake Total 2700 2100 Output Total 1400 1800 Balance 1300 300 Lab Results - Last 24 hrs: Laboratory Results - last 24 hr 01/25/19 01/25/19 Range/Units 05:30 05:30 WBC 12.51 H (4.0-11.0) K/uL RBC 4.72 (4.50-5.90) M/uL Hgb 13.8 (13.0-17.0) g/dL Hct 42.8 (38.0-50.0) % MCV 90.7 (80.0-98.0) fL MCH 29.2 (27.0-32.0) pg MCHC 32.2 (31.0-37.0) g/dL RDW Std Deviation 47.2 (28.0-62.0) fl RDW Coeff of Coreen 14 (11.0-15.0) % Plt Count 220 (150-400) K/uL MPV 10.70 (7.40-12.00) fL Add Manual Diff YES Neutrophils % (Manual) 65 (48.0-80.0) % Band Neutrophils % 6 % Lymphocytes % (Manual) 20 (16.0-40.0) % Monocytes % (Manual) 6 (0.0-15.0) % Eosinophils % (Manual) 3 (0.0-7.0) % Nucleated RBC % 0.0 /100WBC Absolute Seg Neuts 8.1 H (1.4-5.7) Band Neutrophils # 0.8 Lymphocytes # (Manual) 2.5 H (0.6-2.4) Monocytes # (Manual) 0.8 (0.0-0.8) Eosinophils # (Manual) 0.4 (0.0-0.7) Nucleated RBCs # 0 K/uL Sodium 140 (136-148) mmol/L Potassium 4.3 (3.5-5.1) mmol/L Chloride 105 (98-107) mmol/L Carbon Dioxide 25.6 (21.0-32.0) mmol/L BUN 9 (7.0-18.0) mg/dL Creatinine 0.9 (0.8-1.3) mg/dL Est Cr Clr Drug Dosing 130.15 mL/min Estimated GFR (MDRD) > 60.0 ml/min Glucose 103 (74-106) mg/dL Calcium 8.4 L (8.5-10.1) mg/dL CHRISTA Results - Last 24 hrs: Microbiology 01/21/19 19:12 Aerobic Blood Culture - Preliminary Blood - Venous - Lab Draw NO GROWTH AFTER 3 DAYS Anaerobic Blood Culture - Preliminary NO GROWTH AFTER 3 DAYS 01/21/19 19:12 Aerobic Blood Culture - Preliminary Blood - Venous NO GROWTH AFTER 3 DAYS Anaerobic Blood Culture - Preliminary NO GROWTH AFTER 3 DAYS 01/24/19 11:50 Clostridium difficile Toxin A & B - Final Stool / Feces Negative for C.Diff Toxin/AG REFERENCE RANGE: NEGATIVE Med Orders - Current: Current Medications Acetaminophen (Tylenol Extra Strength) 500 mg PO Q6H PRN PRN Reason: Fever Last Admin: 01/23/19 15:30 Dose: 500 mg Heparin Sodium (Porcine) (Heparin Sodium) 5,000 units SUBCUT Q8H [facility] Last Admin: 01/25/19 06:46 Dose: 5,000 units Hydromorphone HCl (Dilaudid) 3 mg PO Q4H PRN PRN Reason: Pain (severe 7-10) Last Admin: 01/24/19 23:36 Dose: 3 mg Piperacillin Sod/Tazobactam (Sod 3.375 gm/ Sodium Chloride) 50 mls @ 100 mls/ hr IV Q6H [facility] Last Admin: 01/25/19 04:54 Dose: 100 mls/hr Vancomycin HCl 2 gm/ Sodium (Chloride) 500 mls @ 333.333 mls/hr IV Q8H [facility] Last Admin: 01/25/19 07:55 Dose: 333.333 mls/hr Vancomycin HCl (Pharmacy To Dose - Vancomycin) 1 dose .XX ASDIRECTED [facility] Discontinued Medications Hydromorphone HCl (Dilaudid) 1 mg IVPUSH Q3H PRN PRN Reason: Pain (severe 7-10) Hydromorphone HCl (Dilaudid) 1 mg IVPUSH Q3H PRN PRN Reason: Pain (severe 7-10) Last Admin: 01/22/19 15:54 Dose: 1 mg Hydromorphone HCl (Dilaudid) 1 mg IVPUSH Q2H PRN PRN Reason: Pain (severe 7-10) Last Admin: 01/23/19 13:21 Dose: 1 mg Hydromorphone HCl (Dilaudid) 4 mg PO Q3H PRN PRN Reason: Pain (severe 7-10) Last Admin: 01/24/19 05:41 Dose: 4 mg Sodium Chloride (Normal Saline) 1,000 mls @ 999 mls/hr IV STAT ONE Stop: 01/21/19 19:58 Last Admin: 01/21/19 19:17 Dose: 999 mls/hr Ceftriaxone Sodium/Dextrose 1 (gm/ Premix) 50 mls @ 100 mls/hr IV ONETIME ONE Stop: 01/21/19 22:02 Last Admin: 01/21/19 21:43 Dose: 100 mls/hr Sodium Chloride (Normal Saline) 1,000 mls @ 999 mls/hr IV STAT ONE Stop: 01/21/19 22:33 Last Admin: 01/21/19 21:43 Dose: 999 mls/hr Vancomycin HCl 1 gm/ Sodium (Chloride) 250 mls @ 250 mls/hr IV ONETIME ONE Stop: 01/21/19 22:57 Last Admin: 01/21/19 23:47 Dose: Not Given Vancomycin HCl 1 gm/ Sodium (Chloride) 250 mls @ 166 mls/hr IV ONETIME ONE Stop: 01/22/19 00:30 Last Admin: 01/21/19 23:14 Dose: 166 mls/hr Sodium Chloride (Normal Saline) Confirm Administered Dose 250 mls @ as directed .ROUTE .STK-MED ONE Stop: 01/21/19 23:06 Last Admin: 01/21/19 23:48 Dose: Not Given Sodium Chloride (Normal Saline) 1,000 mls @ 125 mls/hr IV ASDIRECTED MARCIA Last Admin: 01/22/19 00:50 Dose: 125 mls/hr Sodium Chloride (Normal Saline) 1,000 mls @ 200 mls/hr IV STAT MARCIA Stop: 01/23/19 13:59 Last Admin: 01/22/19 15:51 Dose: 200 mls/hr Ibuprofen (Motrin) 600 mg PO ONETIME ONE Stop: 01/21/19 19:36 Last Admin: 01/21/19 19:46 Dose: 600 mg Iopamidol (Isovue Multipack-370 (76%)) 100 ml IVPUSH ONETIME STA Stop: 01/22/19 13:11 Last Admin: 01/22/19 13:11 Dose: 100 ml Ketorolac Tromethamine (Toradol) 30 mg IVPUSH Q6H PRN PRN Reason: Pain Stop: 01/27/19 17:01 Last Admin: 01/22/19 17:52 Dose: 30 mg Lorazepam (Ativan) 1 mg IVPUSH ONETIME ONE Stop: 01/21/19 19:05 Last Admin: 01/21/19 19:19 Dose: 1 mg Morphine Sulfate (Morphine) 2 mg IVPUSH ONETIME ONE Stop: 01/21/19 18:59 Last Admin: 01/21/19 19:16 Dose: 2 mg Morphine Sulfate (Morphine) 2 mg IVPUSH ONETIME ONE Stop: 01/21/19 21:34 Last Admin: 01/21/19 21:44 Dose: 2 mg Oxycodone HCl (Oxycodone) 5 mg PO Q4H PRN PRN Reason: Pain Last Admin: 01/23/19 10:56 Dose: 5 mg Oxycodone HCl (Oxycodone) 10 mg PO Q4H PRN PRN Reason: Pain Vancomycin HCl (Vancomycin) Confirm Administered Dose 1 gm .ROUTE .STK-MED ONE Stop: 01/21/19 23:03 Last Admin: 01/21/19 23:15 Dose: Not Given
[2019-01-25 09:41] VITALS: BP 142/85
== END 2019-01-25 10:48 | disposition home or self-care (01) | DRG 872 ==
LOC: MW.ED 18:37 → OBSVTOIN 22:35 → MW.MS 22:35
PROVIDERS: ADMIT Internal Medicine; ATTEND Internal Medicine
DX: A41.9 Sepsis, unspecified organism (principal); L03.116 Cellulitis of left lower limb; K21.9 Gastro-esophageal reflux disease without esophagitis; E03.9 Hypothyroidism, unspecified; E66.9 Obesity, unspecified; F17.210 Nicotine dependence, cigarettes, uncomplicated; Z88.5 Allergy status to narcotic agent; Z88.8 Allergy status to other drugs, medicaments and biological substances; Z90.49 Acquired absence of other specified parts of digestive tract; Z68.42 Body mass index [BMI] 45.0-49.9, adult
CPT/HCPCS: 36415; 71045; 71045-26; 72193; 72193-26; 73551-26-LT; 73551-LT; 73590-26-LT; 73590-LT; 73701-26-LT; 73701-LT; 80048; 80053; 80202; 81001; 83036; 83605; 85025; 85610; 85730; 87040; 87324; 93926; 93926-26; 93971-26-LT; 93971-LT; 96361; 96365; 96367; 96375; 96376; 99284; 99285-25; A4217; A9270-GY; J0696; J1170; J1644; J1885; J2060; J2270; J2543; J3370; J7040; J7050; Q9967

== ENCOUNTER 2019-11-21 21:56 | Emergency (ER) | payer SELFPAY ==
--- NOTE | 2019-11-21 22:46 | EDM.PDOC ---
ED [facility] GENERAL MEDICAL PROBLEM - General Chief Complaint: ENT Problem Stated Complaint: BOTH EAR PAIN Time Seen by Provider: 11/21/19 22:35 Source of Information: Reports: Patient History Limitations: Reports: No Limitations - History of Present Illness INITIAL COMMENTS - FREE TEXT/NARRATIVE: Patient 29-year-old male with essentially admitted medical history of obesity presented chief complaint of sore throat, sinus congestion, ear congestion. Patient states that symptoms have been ongoing for 3 to 4 days. Patient states that the symptoms were worsened after he attempted to do a nasal flush of saline. Patient states he felt increased fullness of his ears. Patient does feel some clogging of his ears bilaterally. Patient denies fevers. Patient denies shortness of breath. Patient denies body aches. Pmhx: Per HPI Pshx: None Family Hx: noncontributory Smoking history? no Etoh use? none Drug use? none In addition to that documented in the HPI above, the additional ROS was obtained : Constitutional: Denies fevers or chills Eyes: Denies vision changes ENMT: Per HPI CV: Denies chest pain Resp: Denies SOB GI: Denies vomiting or diarrhea : Denies painful urination MSK: Denies recent trauma Skin: Denies new rashes Neuro: Denies new numbness or tingling or weakness Endocrine: Denies unexpected weight loss Heme: Denies bleeding disorders I have reviewed the triage vital signs Const: Well nourished, well developed, appears stated age Eyes: PERRL, no conjunctival injection HENT: NCAT, Neck supple without meningismus. Tympanic membrane's are intact bilaterally. No evidence of infection. No mastoid tenderness or erythema. CV: RRR, Warm, well-perfused extremities RESP: CTAB, Unlabored respiratory effort GI: soft, non-tender, non-distended, no masses MSK: No gross deformities appreciated Skin: Warm, dry. No rashes Neuro: Alert, postal service clerk II-XII grossly intact. Sensation and motor function of extremities grossly intact. Psych: Appropriate mood and affect Assessment and plan: Patient 29-year-old male with presentation of upper respiratory tract infection. Patient has no fevers and is well-appearing. Patient likely has upper respiratory tract infection. Patient has no evidence of TM perforation or otitis media or externa. Patient given instructions for how to properly do sinus rinses. Patient given instructions for ibuprofen. Grade viruses possibility in the differential but given mild symptoms patient is instructed to self quarantine at home. All questions were addressed and answered. Patient agrees with plan. Bilateral Ear Pain Score (Numeric/FACES): 9 - Related Data Allergies Allergy/AdvReac Type Severity Reaction Status Date / Time acetaminophen [From Vicodin] Allergy Swollen Verified 11/21/19 22:25 Tongue hydrocodone bitartrate Allergy Swollen Verified 11/21/19 22:25 [From Vicodin] Tongue Home Meds: Home Meds . [No Known Home Meds] 11/21/19 [History] Past Medical History - Past Health History Medical/Surgical History: Denies Medical/Surgical History Other HEENT History: wears glasses Cardiovascular History: Reports: Angina Other Cardiovascular History: will be checked by Dr. Bebeto Allison before -The patient told me that he saw Dr. Allison and he was cleared for surgery. Respiratory History: Reports: None Gastrointestinal History: Reports: GERD Genitourinary History: Reports: None Musculoskeletal History: Reports: Fracture Other Musculoskeletal History: left arm and left thumb Neurological History: Reports: None Psychiatric History: Reports: None Endocrine/Metabolic History: Reports: Hypothyroidism, Obesity/BMI 30+ Hematologic History: Reports: None Immunologic History: Reports: None Oncologic (Cancer) History: Reports: None Dermatologic History: Reports: None - Infectious Disease History Infectious Disease History: Reports: None - Past Surgical History Head Surgeries/Procedures: Reports: None HEENT Surgical History: Reports: None Cardiovascular Surgical History: Reports: None GI Surgical History: Reports: Appendectomy Male Surgical History: Reports: None Endocrine Surgical History: Reports: None Neurological Surgical History: Reports: None Musculoskeletal Surgical History: Reports: ORIF, Other (See Below) Other Musculoskeletal Surgeries/Procedures:: left arm surgery with plate and screws right sciatic pain Oncologic Surgical History: Reports: None Dermatological Surgical History: Reports: None - History Comment History Comment: etoh "1x a week". Social & Family History - Family History Family Medical History: Noncontributory Cardiac: Reports: [facility] Psychiatric: Reports: Anxiety, Depression - Tobacco Use Smoking Status *Q: Current Every Day Smoker Years of Tobacco use: 20 Packs/Tins Daily: 0.4 - Caffeine Use Caffeine Use: Reports: Soda - Recreational Drug Use Recreational Drug Use: Yes Recreational Drug Type: Reports: Cocaine Recreational Drug Use Frequency: Weekly ED ROS ENT - Review of Systems Review Of Systems: See Below ED EXAM, ENT - Physical Exam Exam: See Below Course - Vital Signs Last Recorded V/S: Last Vital Signs Temp 35.9 C L 11/21/19 22:22 Pulse 114 H 11/21/19 22:22 Resp 20 11/21/19 22:22 BP 145/94 H 11/21/19 22:22 Pulse Ox 97 11/21/19 22:22 Departure - Departure Time of Disposition: 22:46 Disposition: Home, Self-Care 01 Clinical Impression: URI (upper respiratory infection) - Discharge Information Instructions: Viral Respiratory Infection, Psff-[id number] Referrals: PCP,None [Primary Care Provider] - Forms: ED Department Discharge Additional Instructions: The following information is given to patients seen in the emergency department who are being discharged to home. This information is to outline your options for follow-up care. We provide all patients seen in our emergency department with a follow-up referral. The need for follow-up, as well as the timing and circumstances, are variable depending upon the specifics of your emergency department visit. If you don't have a primary care physician on staff, we will provide you with a referral. We always advise you to contact your personal physician following an emergency department visit to inform them of the circumstance of the visit and for follow-up with them and/or the need for any referrals to a consulting specialist. The emergency department will also refer you to a specialist when appropriate. This referral assures that you have the opportunity for follow-up care with a specialist. All of these measure are taken in an effort to provide you with optimal care, which includes your follow-up. Under all circumstances we always encourage you to contact your private physician who remains a resource for coordinating your care. When calling for follow-up care, please make the office aware that this follow-up is from your recent emergency room visit. If for any reason you are refused follow-up, please contact the [facility] Emergency Department at and asked to speak to the emergency department charge nurse. Sepsis Event Note - Evaluation Sepsis Screening Result: No Definite Risk - Focused Exam Vital Signs: Vital Signs Temp Pulse Resp BP Pulse Ox 11/21/19 22:22 35.9 C L 114 H 20 145/94 H 97 Date Exam was Performed: 11/21/19 Time Exam was Performed: 22:54
[2019-11-21 23:24] VITALS: BP 152/96; PULSE 112
== END 2019-11-21 23:21 | disposition home or self-care (01) ==
LOC: MW.ED 21:56
DX: J06.9 Acute upper respiratory infection, unspecified (principal); E66.9 Obesity, unspecified; Z68.31 Body mass index [BMI] 31.0-31.9, adult; F17.210 Nicotine dependence, cigarettes, uncomplicated; Z88.8 Allergy status to other drugs, medicaments and biological substances; Z88.5 Allergy status to narcotic agent
CPT/HCPCS: 99282

== ENCOUNTER 2020-02-29 12:14 | Inpatient (IN) | payer OTHER ==
[2020-02-29] MEDS ORDERED: Sodium Chloride 0.9% 2.5 ML Syringe FLUSH PRN ×2 (12:24→15:27)
[2020-02-29] MEDS ORDERED: Sodium Chloride 0.9% 10 ML Syringe FLUSH PRN (12:24)
[2020-02-29] MEDS ORDERED: Lactated Ringers 1,000 ML IV ONE ×2 (12:45→12:46)
[2020-02-29] MEDS ORDERED: LACTATED RINGERS IV ONE (12:46)
--- NOTE | 2020-02-29 12:51 | EDM.PDOC ---
ED HPI GENERAL MEDICAL PROBLEM - General Chief Complaint: Possible Sepsis Stated Complaint: CELLULITIS Time Seen by Provider: 02/29/20 12:15 - History of Present Illness INITIAL COMMENTS - FREE TEXT/NARRATIVE: 29-year-old male with a history of obesity and prior bouts of cellulitis leading to bacteremia in the past who is presenting with 1 day of left lower extremity pain and erythema primarily over the left medial calf associated nausea nonbloody nonbilious emesis x1 fevers chills and generalized weakness. Symptoms are constant gradually worsening over the last day no exacerbating or alleviating factors radiation or other associated symptoms. Treatments J2EE ARCHITECT: Reports: Oxygen bilateral feet Pain Score (Numeric/FACES): 8 - Related Data Allergies Allergy/AdvReac Type Severity Reaction Status Date / Time acetaminophen [From Vicodin] Allergy Swollen Verified 02/29/20 12:30 Tongue hydrocodone bitartrate Allergy Swollen Verified 02/29/20 12:30 [From Vicodin] Tongue Home Meds: Home Meds . [No Known Home Meds] 11/21/19 [History] Past Medical History - Past Health History Medical/Surgical History: Denies Medical/Surgical History HEENT History: Reports: Other (See Below) Other HEENT History: wears glasses Cardiovascular History: Reports: Angina Other Cardiovascular History: will be checked by Dr. Bebeto Allison before -The patient told me that he saw Dr. Allison and he was cleared for surgery. Respiratory History: Reports: None Gastrointestinal History: Reports: GERD Genitourinary History: Reports: None Musculoskeletal History: Reports: Fracture Other Musculoskeletal History: left arm and left thumb Neurological History: Reports: None Psychiatric History: Reports: None Endocrine/Metabolic History: Reports: Hypothyroidism, Obesity/BMI 30+ Hematologic History: Reports: None Immunologic History: Reports: None Oncologic (Cancer) History: Reports: None Dermatologic History: Reports: Cellulitis - Infectious Disease History Infectious Disease History: Reports: None - Past Surgical History Head Surgeries/Procedures: Reports: None HEENT Surgical History: Reports: None Cardiovascular Surgical History: Reports: None Respiratory Surgical History: Reports: None GI Surgical History: Reports: Appendectomy Male Surgical History: Reports: None Endocrine Surgical History: Reports: None Neurological Surgical History: Reports: None Musculoskeletal Surgical History: Reports: ORIF, Other (See Below) Other Musculoskeletal Surgeries/Procedures:: left arm surgery with plate and screws right sciatic pain Oncologic Surgical History: Reports: None Dermatological Surgical History: Reports: None - History Comment History Comment: etoh "1x a week". Social & Family History - Family History Family Medical History: Noncontributory Cardiac: Reports: ND Psychiatric: Reports: Anxiety, Depression - Tobacco Use Smoking Status *Q: Current Every Day Smoker Years of Tobacco use: 9 Packs/Tins Daily: 0.5 - Caffeine Use Caffeine Use: Reports: None - Recreational Drug Use Recreational Drug Use: No ED ROS GENERAL - Review of Systems Review Of Systems: See Below Free Text/Narrative/Comment: General: Per HPI Skin: Per HPI Eyes: No vision problems. ENT: No sore throat. Neck: No neck stiffness. Respiratory: No shortness of breath. Cardiac: No chest pain. Gastrointestinal: Per HPI Urinary: No dysuria. Musculoskeletal: Per HPI Neurologic: No headache. ED EXAM, GENERAL - Physical Exam Exam: See Below Free Text/Narrative:: General Appearance: No acute distress, appears comfortable Skin: Significant area of tender warmth erythema on the left medial calf from just proximal to the ankle to just proximal to the knee no swelling erythema or pain with range of motion of the ankle or the knee no circumferential swelling HEENT: Normocephalic/atraumatic, sclera anicteric, mucous membranes dry Neck: Normal range of motion Chest and Lungs: Bilateral breath sounds, clear to auscultation Cardiovascular: Tachycardic rate regular rhythm, intact distal perfusion no lower extremity edema Abdomen: Soft, non-tender Back: Normal Musculoskeletal: No edema or tenderness Neurologic: Awake, alert, no obvious deficits, moving all extremities Psychiatric: Appropriate, cooperative EKG INTERPRETATION EKG Interpretation Comments: EKG obtained at 1213 demonstrates sinus tachycardia rate of 118 minimal changes of benign early re-pole normal axis no acute ischemia Course - Vital Signs Last Recorded V/S: Last Vital Signs Temp 101 F H 02/29/20 13:56 Pulse 124 H 02/29/20 13:55 Resp 34 H 02/29/20 13:55 BP 142/55 H 02/29/20 13:55 Pulse Ox 93 L 02/29/20 13:55 - Orders/Labs/Meds Orders: Active Orders 24 hr Category Date Time Status Cardiac Monitoring [RC] . DIRECTED Care 02/29/20 12:24 Active Pulse Oximetry [RC] ASDIRECTED Care 02/29/20 12:24 Active Chest 1V Frontal [CR] Stat Exams 02/29/20 12:25 Taken CULTURE BLOOD [BC] Stat Lab 02/29/20 12:21 Received CULTURE BLOOD [BC] Stat Lab 02/29/20 12:42 Received UA W/CHRISTA RFLX IF INDICATED [URIN] Stat Lab 02/29/20 12:25 Ordered Sodium Chloride 0.9% [Saline Flush] Med 02/29/20 12:24 Active 10 ml FLUSH ASDIRECTED PRN Sodium Chloride 0.9% [Saline Flush] Med 02/29/20 12:24 Active 2.5 ml FLUSH ASDIRECTED PRN Vancomycin 2 gm Med 02/29/20 13:30 Active Sodium Chloride 0.9% [Normal Saline] 500 ml IV ONETIME Blood Culture x2 Reflex Set [OM.PC] Stat Oth 02/29/20 12:27 Ordered Saline Lock Insert [OM.PC] Stat Oth 02/29/20 12:24 Ordered Medication Orders Vancomycin HCl 2 gm/ Sodium (Chloride) 500 mls @ 250 mls/hr IV ONETIME ONE Stop: 02/29/20 15:29 Last Admin: 02/29/20 13:55 Dose: 250 mls/hr Documented by: ADRIANA Sodium Chloride (Saline Flush) 10 ml FLUSH ASDIRECTED PRN PRN Reason: Keep Vein Open Last Admin: 02/29/20 12:53 Dose: 10 ml Documented by: ADRIANA Sodium Chloride (Saline Flush) 2.5 ml FLUSH ASDIRECTED PRN PRN Reason: Keep Vein Open Last Admin: 02/29/20 12:53 Dose: 2.5 ml Documented by: ADRIANA Labs: Laboratory Tests 02/29/20 02/29/20 02/29/20 Range/Units 12:21 12:21 12:21 WBC 23.11 H (4.0-11.0) K/uL RBC 5.32 (4.50-5.90) M/uL Hgb 15.8 (13.0-17.0) g/dL Hct 49.2 (38.0-50.0) % MCV 92.5 (80.0-98.0) fL MCH 29.7 (27.0-32.0) pg MCHC 32.1 (31.0-37.0) g/dL RDW Std Deviation 46.1 (28.0-62.0) fl RDW Coeff of Coreen 14 (11.0-15.0) % Plt Count 218 (150-400) K/uL MPV 11.00 (7.40-12.00) fL Neut % (Auto) 91.1 H (48.0-80.0) % Lymph % (Auto) 2.3 L (16.0-40.0) % [place] % (Auto) 6.4 (0.0-15.0) % Eos % (Auto) 0.0 (0.0-7.0) % Baso % (Auto) 0.2 (0.0-1.5) % Neut # (Auto) 21.1 H (1.4-5.7) K/uL Lymph # (Auto) 0.5 L (0.6-2.4) K/uL [place] # (Auto) 1.5 H (0.0-0.8) K/uL Eos # (Auto) 0.0 (0.0-0.7) K/uL Baso # (Auto) 0.0 (0.0-0.1) K/uL Nucleated RBC % 0.0 /100WBC Nucleated RBCs # 0 K/uL Lactate 2.6 H* (0.20-2.00) mmol/L Sodium 138 (136-148) mmol/L Potassium 4.2 (3.5-5.1) mmol/L Chloride 102 (98-107) mmol/L Carbon Dioxide 28.7 (21.0-32.0) mmol/L BUN 8 (7.0-18.0) mg/dL Creatinine 1.1 (0.8-1.3) mg/dL Est Cr Clr Drug Dosing 108.76 mL/min Estimated GFR (MDRD) > 60.0 ml/min Glucose 107 H (74-106) mg/dL Calcium 9.0 (8.5-10.1) mg/dL Total Bilirubin 0.4 (0.2-1.0) mg/dL AST 26 (15-37) IU/L ALT 57 (14-63) IU/L Alkaline Phosphatase 58 (46-116) U/L Troponin I < 0.050 (0.000-0.056) ng/mL Total Protein 7.6 (6.4-8.2) g/dL Albumin 3.9 (3.4-5.0) g/dL Globulin 3.7 (2.6-4.0) g/dL Albumin/Globulin Ratio 1.1 (0.9-1.6) SARS Virus RNA (PCR) (NEGATIVE) 02/29/20 02/29/20 Range/Units 12:58 13:54 WBC (4.0-11.0) K/uL RBC (4.50-5.90) M/uL Hgb (13.0-17.0) g/dL Hct (38.0-50.0) % MCV (80.0-98.0) fL MCH (27.0-32.0) pg MCHC (31.0-37.0) g/dL RDW Std Deviation (28.0-62.0) fl RDW Coeff of Coreen (11.0-15.0) % Plt Count (150-400) K/uL MPV (7.40-12.00) fL Neut % (Auto) (48.0-80.0) % Lymph % (Auto) (16.0-40.0) % [place] % (Auto) (0.0-15.0) % Eos % (Auto) (0.0-7.0) % Baso % (Auto) (0.0-1.5) % Neut # (Auto) (1.4-5.7) K/uL Lymph # (Auto) (0.6-2.4) K/uL [place] # (Auto) (0.0-0.8) K/uL Eos # (Auto) (0.0-0.7) K/uL Baso # (Auto) (0.0-0.1) K/uL Nucleated RBC % /100WBC Nucleated RBCs # K/uL Lactate 2.1 H* (0.20-2.00) mmol/L Sodium (136-148) mmol/L Potassium (3.5-5.1) mmol/L Chloride (98-107) mmol/L Carbon Dioxide (21.0-32.0) mmol/L BUN (7.0-18.0) mg/dL Creatinine (0.8-1.3) mg/dL Est Cr Clr Drug Dosing mL/min Estimated GFR (MDRD) ml/min Glucose (74-106) mg/dL Calcium (8.5-10.1) mg/dL Total Bilirubin (0.2-1.0) mg/dL AST (15-37) IU/L ALT (14-63) IU/L Alkaline Phosphatase (46-116) U/L Troponin I (0.000-0.056) ng/mL Total Protein (6.4-8.2) g/dL Albumin (3.4-5.0) g/dL Globulin (2.6-4.0) g/dL Albumin/Globulin Ratio (0.9-1.6) SARS Virus RNA (PCR) NEGATIVE (NEGATIVE) Meds: Medications Generic Name Dose Route Start Last Admin Trade Name Freq PRN Reason Stop Dose Admin Vancomycin HCl 2 gm/ Sodium 500 mls @ 250 mls/hr 02/29/20 13:30 02/29/20 13 :55 Chloride IV 02/29/20 15:29 250 mls/hr ONETIME ONE Administration Sodium Chloride 10 ml 02/29/20 12:24 02/29/20 12:53 Saline Flush FLUSH 10 ml ASDIRECTED PRN Administration Keep Vein Open Sodium Chloride 2.5 ml 02/29/20 12:24 02/29/20 12:53 Saline Flush FLUSH 2.5 ml ASDIRECTED PRN Administration Keep Vein Open Discontinued Medications Generic Name Dose Route Start Last Admin Trade Name Micky PRN Reason Stop Dose Admin Acetaminophen 650 mg 02/29/20 14:01 Tylenol PO 02/29/20 14:02 NOW ONE Lactated Ringer's 1,000 mls @ 999 mls/hr 02/29/20 12:45 02/29/20 12:52 Ringers, Lactated IV 02/29/20 13:45 999 mls/hr .BOLUS ONE Administration Lactated Ringer's 1,000 mls @ 999 mls/hr 02/29/20 12:46 02/29/20 12:55 Ringers, Lactated IV 02/29/20 13:46 999 mls/hr .BOLUS ONE Administration Lactated Ringer's 331 mls @ 999 mls/hr 02/29/20 12:46 02/29/20 13:53 Ringers, Lactated IV 02/29/20 13:05 999 mls/hr .BOLUS ONE Administration Cefepime HCl 2 gm/ Premix 50 mls @ 100 mls/hr 02/29/20 12:55 IV 02/29/20 13:24 ONETIME ONE Vancomycin HCl 1 dose 02/29/20 12:56 02/29/20 13:30 Pharmacy To Dose - Vancomycin .XX 02/29/20 12:57 Not Given ONETIME ONE Departure - Departure Time of Disposition: 14:14 Disposition: Admitted As Inpatient 66 Condition: Fair Clinical Impression: Severe sepsis - Discharge Information *PRESCRIPTION DRUG MONITORING PROGRAM REVIEWED*: Not Applicable *COPY OF PRESCRIPTION DRUG MONITORING REPORT IN PATIENT STACIA: Not Applicable Referrals: Belen Garcia [Primary Care Provider] - Forms: ED Department Discharge Critical Care Note - Critical Care Note Total Time (mins): 45 Sepsis Event Note (ED) - Evaluation Sepsis Screening Result: Possible Sepsis Risk Current Stage of Sepsis: Severe Sepsis Possible Source of Sepsis: Skin/Soft Tissue - Focused Exam Sepsis Event Note Statement: Focused Sepsis Exam Completed Vital Signs: Vital Signs Temp Temp Pulse Resp BP Pulse Ox 02/29/20 13:56 101 F H 02/29/20 13:55 124 H 34 H 142/55 H 93 L 02/29/20 13:25 126 H 44 H 146/69 H 98 02/29/20 12:50 121 H 44 H 115/72 94 L 02/29/20 12:30 99.7 F 125 H 30 H 155/80 H 98 I performed a sepsis focused reassessment at this time. Patient has completed his normal saline bolus. His respiratory status has improved somewhat though he remains mildly tachypneic. His work of breathing is normal he is not altered his heart rate has improved some to the 1 teens from the 120s. Blood pressure remained stable. Date Exam was Performed: 02/29/20 Time Exam was Performed: 14:13 - My Orders Last 24 Hours: My Active Orders 02/29/20 12:21 CULTURE BLOOD [BC] Stat 02/29/20 12:24 Cardiac Monitoring [RC] . DIRECTED Pulse Oximetry [RC] ASDIRECTED Sodium Chloride 0.9% [Saline Flush] 10 ml FLUSH ASDIRECTED PRN Sodium Chloride 0.9% [Saline Flush] 2.5 ml FLUSH ASDIRECTED PRN Saline Lock Insert [OM.PC] Stat 02/29/20 12:25 Chest 1V Frontal [CR] Stat UA W/CHRISTA RFLX IF INDICATED [URIN] Stat 02/29/20 12:27 Blood Culture x2 Reflex Set [OM.PC] Stat 02/29/20 12:42 CULTURE BLOOD [BC] Stat 02/29/20 13:30 Vancomycin 2 gm Sodium Chloride 0.9% [Normal Saline] 500 ml IV ONETIME - Assessment/Plan Last 24 Hours: My Active Orders 02/29/20 12:21 CULTURE BLOOD [BC] Stat 02/29/20 12:24 Cardiac Monitoring [RC] . DIRECTED Pulse Oximetry [RC] ASDIRECTED Sodium Chloride 0.9% [Saline Flush] 10 ml FLUSH ASDIRECTED PRN Sodium Chloride 0.9% [Saline Flush] 2.5 ml FLUSH ASDIRECTED PRN Saline Lock Insert [OM.PC] Stat 02/29/20 12:25 Chest 1V Frontal [CR] Stat UA W/CHRISTA RFLX IF INDICATED [URIN] Stat 02/29/20 12:27 Blood Culture x2 Reflex Set [OM.PC] Stat 02/29/20 12:42 CULTURE BLOOD [BC] Stat 02/29/20 13:30 Vancomycin 2 gm Sodium Chloride 0.9% [Normal Saline] 500 ml IV ONETIME Assessment:: 29-year-old male presenting with signs and symptoms most consistent with severe sepsis likely secondary to left lower extremity cellulitis intra-abdominal pathology considered but abdominal exam is quite benign. Pulmonary pathology considered patient does endorse a mild cough. However, this is felt less likely but the chest x-ray pending and patient will be swabed for COVID. Given pat ient's obesity will dose of 30 mL's per kilogram of LR based on ideal body weight which is 77 kg. Broad-spectrum antibiotics ordered as well as CBC, CMP, UA, blood cultures. Patient require admission for further care. Initial LA elevated at 2.6. Patient's white count is elevated to the mid 20s as expected he was given a 30/kg fluid bolus. His lactate improved somewhat to 2.1. He is now febrile and 650 of Tylenol is been given. His respiratory rate is trending downward but he remains on 7 L facemask. Patient discussed in full with Dr. Christian. She agrees with need for admission to telemetry given the hypoxia and the significant tachypnea request CT pulmonary angiography to exclude coincident PE and this is not unreasonable. Relevant order has been placed.
[2020-02-29] MEDS ORDERED: Cefepime 2 GM in Premix Bag 1 BAG IV ONE (12:55)
[2020-02-29 13:01] LABS: BLOOD UREA NITROGEN,BUN 8 mg/dL (7.0-18.0); CARBON DIOXIDE,CO2 28.7 mmol/L (21.0-32.0); CHLORIDE,CL 102 mmol/L (98-107); GLUCOSE RANDOM 107 mg/dL (74-106); POTASSIUM,K 4.2 mmol/L (3.5-5.1); SODIUM,NA 138 mmol/L (136-148)
[2020-02-29] MEDS ORDERED: Vancomycin 2 GM in Sodium Chloride 0.9% 500 ML IV ONE (13:30)
[2020-02-29] MEDS ORDERED: Acetaminophen 325 MG Tab PO ONE (14:01)
--- NOTE | 2020-02-29 14:24 | CR ---
Chest: AP view of the chest was obtained. Comparison: Prior chest x-ray of 01/21/19. Heart size and mediastinum are within normal limits for technique. Lungs are clear with no acute parenchymal change. Bony structures are grossly intact. Impression: 1. Nothing acute is seen on AP chest x-ray. Diagnostic code #1 Study was dictated in MDT
--- NOTE | 2020-02-29 15:20 | CT ---
CT chest Technique: Multiple axial sections through the chest were obtained. Intravenous contrast was utilized. Study has been performed as a CT angiogram study. Pulmonary arteries are poorly opacified. No filling defects are seen within the main or proximal segmental branches. More distal pulmonary emboli could easily be missed. Visualized upper abdominal structures shows no discrete abnormality. No pericardial thickening is seen. Mediastinum and hilar regions show no adenopathy. Lungs are clear and no acute parenchymal change. Impression: 1. Suboptimal opacification of the pulmonary emboli. No larger pulmonary emboli are seen within the main or proximal segmental branches. 2. Nothing acute is otherwise seen on CT study of the chest. Diagnostic code #2 Study was dictated in MDT
[2020-02-29] MEDS ORDERED: Ibuprofen 400 MG Tab PO PRN (15:21)
[2020-02-29] MEDS ORDERED: Albuterol/Ipratropium 3.0-0.5 MG/3 ML Neb Soln NEB PRN (15:21)
[2020-02-29] MEDS ORDERED: Ondansetron 4 MG/2 ML SDV IVPUSH PRN (15:21)
[2020-02-29] MEDS ORDERED: Iopamidol 755 MG/ML 500 ML Multipack Bottle IVPUSH STA (15:26)
[2020-02-29] MEDS: Lactated Ringers 1,000 ML IV SCH (15:57)
[2020-02-29] MEDS ORDERED: Morphine 2 MG/ML SYRINGE IVPUSH PRN (15:57)
[2020-02-29] MEDS ORDERED: DAPTOmycin 800 MG in Sodium Chloride 0.9% 16 ML IV SCH (16:00)
--- NOTE | 2020-02-29 16:04 | PCM.HP.2 ---
H&P History of Present Illness - General Date of Service: 02/29/20 Admit Problem/Dx: Admission Diagnosis/Problem Admission Diagnosis/Problem Severe sepsis Source of Information: Patient History Limitations: Reports: No Limitations - History of Present Illness Initial Comments - Free Text/Narative: This 29 year old male with pmh of cellulitis with sepsis, obesity, and cocaine use presents to the ED with complaints of fevers, red leg and pain. He reports the redness started yesterday to his LLE with the fevers. He decided to come in today to be evaluated. Denies injury to his leg, reports fungal infection to toes, which he has not attempted to treat. He reports shortness of breath with cough and sputum with yellow sputum. He reports some nasal congestion and sore throat. He reports he was using cocaine heavily until last week when his family found out and he reports he plans on stopping. He was snorting this. He denies asthma or COPD, but does smoke 5-6 cigarettes a day. Denies alcohol use. In the ED significant leukocytosis noted at 23,110, lactic acid elevated at 2.6. CMP otherwise normal. COVID negative. He was noted to be hypoxic, tachycardia and febrile in the ED. He was given Vancomycin and Cefepime in the ED along with 3 L LR. Lactic improved to 2.1 with fluids. BP remained stable, no hypotension noted. CXR negative. CTA obtained which did note find PE and lungs appear clear, no acute findings. he will be admitted for sepsis secondary to cellulitis of LLE and acute hypoxic respiratory failure. bilateral feet Pain Score (Numeric/FACES): 8 - Related Data Allergies/Adverse Reactions: Allergies Allergy/AdvReac Type Severity Reaction Status Date / Time hydrocodone bitartrate Allergy Swollen Verified 02/29/20 15:32 [From Vicodin] Tongue Home Medications: Home Meds . [No Known Home Meds] 11/21/19 [History] Past Medical History - Past Health History Medical/Surgical History: Denies Medical/Surgical History HEENT History: Reports: Other (See Below) Other HEENT History: wears glasses Cardiovascular History: Reports: None. Denies: High Cholesterol, Hypertension Respiratory History: Reports: None. Denies: Asthma, COPD Gastrointestinal History: Reports: GERD Genitourinary History: Reports: None. Denies: Acute Renal Failure Musculoskeletal History: Reports: Fracture Other Musculoskeletal History: left arm and left thumb Neurological History: Reports: None. Denies: CVA, TIA Psychiatric History: Reports: Addiction Endocrine/Metabolic History: Reports: Hypothyroidism, Obesity/BMI 30+ Hematologic History: Reports: None Immunologic History: Reports: None Oncologic (Cancer) History: Reports: None Dermatologic History: Reports: Cellulitis - Infectious Disease History Infectious Disease History: Reports: None - Past Surgical History Head Surgeries/Procedures: Reports: None HEENT Surgical History: Reports: None Cardiovascular Surgical History: Reports: None Respiratory Surgical History: Reports: None GI Surgical History: Reports: Appendectomy Male Surgical History: Reports: None Endocrine Surgical History: Reports: None Neurological Surgical History: Reports: None Musculoskeletal Surgical History: Reports: ORIF, Other (See Below) Other Musculoskeletal Surgeries/Procedures:: left arm surgery with plate and screws right sciatic pain Oncologic Surgical History: Reports: None Dermatological Surgical History: Reports: None - History Comment History Comment: etoh "1x a week". Social & Family History - Family History Family Medical History: Noncontributory Cardiac: Reports: [place] Psychiatric: Reports: Anxiety, Depression - Tobacco Use Smoking Status *Q: Current Every Day Smoker Years of Tobacco use: 9 Packs/Tins Daily: 0.5 - Caffeine Use Caffeine Use: Reports: None - Alcohol Use Alcohol Use History: No - Recreational Drug Use Recreational Drug Use: Yes Drug Use in Last 12 Months: Yes Recreational Drug Type: Reports: Cocaine (last used last week, reports heavy use, snorting. no smoking) Recreational Drug Use Frequency: Daily H&P Review of Systems - Review of Systems: Review Of Systems: See Below General: Reports: Fever, Chills, Malaise HEENT: Reports: Sore Throat. Denies: Headaches Pulmonary: Reports: Shortness of Breath, Cough, Sputum Cardiovascular: Reports: Dyspnea on Exertion. Denies: Chest Pain Gastrointestinal: Reports: No Symptoms. Denies: Abdominal Pain, Black Stool, Bloody Stool, Diarrhea, Decreased Appetite, Nausea, Vomiting Genitourinary: Reports: No Symptoms. Denies: Dysuria, Frequency, Burning Musculoskeletal: Reports: Leg Pain (LLE) Skin: Reports: Erythema, Other (athletes foot to bilateral toes). Denies: Wound Neurological: Reports: No Symptoms Hematologic/Lymphatic: Reports: No Symptoms Immunologic: Reports: No Symptoms Exam - Exam Exam: See Below - Vital Signs Vital Signs: Last Vital Signs Temp 98.3 F 02/29/20 15:21 Pulse 114 H 02/29/20 15:21 Resp 25 H 02/29/20 15:21 BP 115/63 02/29/20 15:21 Pulse Ox 96 02/29/20 15:21 Weight: 142.882 kg - Exam General: Alert, Oriented, Cooperative, Mild Distress (dyspnea) HEENT: Conjunctiva Clear, Mucosa Moist & [place], Posterior Pharynx Clear Lungs: Clear to Auscultation. No: Normal Respiratory Effort (tachypnea) Cardiovascular: Tachycardia. No: Systolic Murmur GI/Abdominal Exam: Normal Bowel Sounds, Soft, Non-Tender, Other (obese abdomen) Extremities: Normal Inspection, Normal Range of Motion, Non-Tender, No Pedal Edema Skin: Warm, Other (erythem noted to LLE, not including knee or ankle. abrasion noted to lateral lower leg, healing with scabs, no purulent drainage. FUngal infection with peeling skin to bilateral feet and toes.) Neuro Extensive - Mental Status: Alert, Oriented x3 Neuro Extensive - Motor, Sensory, Reflexes: CN II-XII Intact - Patient Data Lab Results Last 24 hrs: Laboratory Results - last 24 hr 02/29/20 02/29/20 02/29/20 Range/Units 12:21 12:21 12:21 WBC 23.11 H (4.0-11.0) K/uL RBC 5.32 (4.50-5.90) M/uL Hgb 15.8 (13.0-17.0) g/dL Hct 49.2 (38.0-50.0) % MCV 92.5 (80.0-98.0) fL MCH 29.7 (27.0-32.0) pg MCHC 32.1 (31.0-37.0) g/dL RDW Std Deviation 46.1 (28.0-62.0) fl RDW Coeff of Coreen 14 (11.0-15.0) % Plt Count 218 (150-400) K/uL MPV 11.00 (7.40-12.00) fL Neut % (Auto) 91.1 H (48.0-80.0) % Lymph % (Auto) 2.3 L (16.0-40.0) % Rich % (Auto) 6.4 (0.0-15.0) % Eos % (Auto) 0.0 (0.0-7.0) % Baso % (Auto) 0.2 (0.0-1.5) % Neut # (Auto) 21.1 H (1.4-5.7) K/uL Lymph # (Auto) 0.5 L (0.6-2.4) K/uL Rich # (Auto) 1.5 H (0.0-0.8) K/uL Eos # (Auto) 0.0 (0.0-0.7) K/uL Baso # (Auto) 0.0 (0.0-0.1) K/uL Nucleated RBC % 0.0 /100WBC Nucleated RBCs # 0 K/uL Lactate 2.6 H* (0.20-2.00) mmol/L Sodium 138 (136-148) mmol/L Potassium 4.2 (3.5-5.1) mmol/L Chloride 102 (98-107) mmol/L Carbon Dioxide 28.7 (21.0-32.0) mmol/L BUN 8 (7.0-18.0) mg/dL Creatinine 1.1 (0.8-1.3) mg/dL Est Cr Clr Drug Dosing 108.76 mL/min Estimated GFR (MDRD) > 60.0 ml/min Glucose 107 H (74-106) mg/dL Calcium 9.0 (8.5-10.1) mg/dL Total Bilirubin 0.4 (0.2-1.0) mg/dL AST 26 (15-37) IU/L ALT 57 (14-63) IU/L Alkaline Phosphatase 58 (46-116) U/L Troponin I < 0.050 (0.000-0.056) ng/mL Total Protein 7.6 (6.4-8.2) g/dL Albumin 3.9 (3.4-5.0) g/dL Globulin 3.7 (2.6-4.0) g/dL Albumin/Globulin Ratio 1.1 (0.9-1.6) SARS Virus RNA (PCR) (NEGATIVE) 02/29/20 02/29/20 Range/Units 12:58 13:54 WBC (4.0-11.0) K/uL RBC (4.50-5.90) M/uL Hgb (13.0-17.0) g/dL Hct (38.0-50.0) % MCV (80.0-98.0) fL MCH (27.0-32.0) pg MCHC (31.0-37.0) g/dL RDW Std Deviation (28.0-62.0) fl RDW Coeff of Coreen (11.0-15.0) % Plt Count (150-400) K/uL MPV (7.40-12.00) fL Neut % (Auto) (48.0-80.0) % Lymph % (Auto) (16.0-40.0) % Rich % (Auto) (0.0-15.0) % Eos % (Auto) (0.0-7.0) % Baso % (Auto) (0.0-1.5) % Neut # (Auto) (1.4-5.7) K/uL Lymph # (Auto) (0.6-2.4) K/uL Rich # (Auto) (0.0-0.8) K/uL Eos # (Auto) (0.0-0.7) K/uL Baso # (Auto) (0.0-0.1) K/uL Nucleated RBC % /100WBC Nucleated RBCs # K/uL Lactate 2.1 H* (0.20-2.00) mmol/L Sodium (136-148) mmol/L Potassium (3.5-5.1) mmol/L Chloride (98-107) mmol/L Carbon Dioxide (21.0-32.0) mmol/L BUN (7.0-18.0) mg/dL Creatinine (0.8-1.3) mg/dL Est Cr Clr Drug Dosing mL/min Estimated GFR (MDRD) ml/min Glucose (74-106) mg/dL Calcium (8.5-10.1) mg/dL Total Bilirubin (0.2-1.0) mg/dL AST (15-37) IU/L ALT (14-63) IU/L Alkaline Phosphatase (46-116) U/L Troponin I (0.000-0.056) ng/mL Total Protein (6.4-8.2) g/dL Albumin (3.4-5.0) g/dL Globulin (2.6-4.0) g/dL Albumin/Globulin Ratio (0.9-1.6) SARS Virus RNA (PCR) NEGATIVE (NEGATIVE) Result Diagrams: 02/29/20 12:21 02/29/20 12:21 Sepsis Event Note - Evaluation Sepsis Screening Result: Possible Sepsis Risk - Focused Exam Vital Signs: Vital Signs Temp Temp Temp Pulse Resp BP Pulse Ox 02/29/20 15:21 98.3 F 114 H 25 H 115/63 96 02/29/20 14:22 101 F H 02/29/20 13:56 101 F H 02/29/20 13:55 124 H 34 H 142/55 H 93 L 02/29/20 13:25 126 H 44 H 146/69 H 98 02/29/20 12:50 121 H 44 H 115/72 94 L 02/29/20 12:30 99.7 F 125 H 30 H 155/80 H 98 Date Exam was Performed: 02/29/20 Time Exam was Performed: 16:08 - Problem List (1) Severe sepsis SNOMED Code(s): 62400148 ICD Code: A41.9 - SEPSIS, UNSPECIFIED ORGANISM; R65.20 - SEVERE SEPSIS WITHO UT SEPTIC SHOCK Status: Acute Current Visit: Yes (2) Cellulitis SNOMED Code(s): 359186384 ICD Code: L03.90 - CELLULITIS, UNSPECIFIED Status: Acute Current Visit: No Onset Date: 12/07/14 (3) Acute respiratory failure with hypoxia SNOMED Code(s): 90299096, 486217588 ICD Code: J96.01 - ACUTE RESPIRATORY FAILURE WITH HYPOXIA Status: Acute Current Visit: Yes (4) Obesity SNOMED Code(s): 794609149, 127495223 ICD Code: E66.9 - OBESITY, UNSPECIFIED Status: Chronic Current Visit: Yes (5) Cocaine abuse SNOMED Code(s): 83799691 ICD Code: F14.10 - COCAINE ABUSE, UNCOMPLICATED Status: Chronic Current Visit: Yes (6) Athlete's foot on left SNOMED Code(s): 9387275 ICD Code: B35.3 - TINEA PEDIS Status: Acute Current Visit: Yes (7) Athlete's foot on right SNOMED Code(s): 6519044 ICD Code: B35.3 - TINEA PEDIS Status: Acute Current Visit: Yes Problem List Initiated/Reviewed/Updated: Yes Orders Last 24hrs: Active Orders 24 hr Category Date Time Status Patient Status [ADT] Routine ADT 02/29/20 14:11 Active Communication Order [RC] ROUTINE Care 02/29/20 15:53 Ordered Intake and Output [RC] QSHIFT Care 02/29/20 15:28 Ordered Oxygen Therapy [RC] PRN Care 02/29/20 15:21 Ordered RT Aerosol Therapy [RC] ASDIRECTED Care 02/29/20 15:23 Ordered Telemetry Monitoring [Cardiac Monitoring] [RC] . Care 02/29/20 15:28 Ordered DIRECTED Up With Assistance [RC] ASDIRECTED Care 02/29/20 15:21 Ordered VTE/DVT Education [RC] PER UNIT ROUTINE Care 02/29/20 15:21 Ordered Vital Signs [RC] Q4H Care 02/29/20 15:21 Ordered Regular Diet [DIET] Diet 02/29/20 Lunch Ordered Venous Doppler Lwr Ext Lt [US] Urgent Exams 02/29/20 15:43 Ordered BASIC METABOLIC PANEL,BMP [CHEM] AM Lab 03/01/20 05:11 Ordered CBC WITH AUTO DIFF [HEME] AM Lab 03/01/20 05:11 Ordered CULTURE BLOOD [BC] Stat Lab 02/29/20 12:21 Received CULTURE BLOOD [BC] Stat Lab 02/29/20 12:42 Received LACTIC ACID,WHOLE BLOOD [BG] Q4H Lab 02/29/20 17:00 Ordered LACTIC ACID,WHOLE BLOOD [BG] Q4H Lab 02/29/20 21:00 Ordered LACTIC ACID,WHOLE BLOOD [BG] Q4H Lab 03/01/20 01:00 Ordered MAGNESIUM [CHEM] AM Lab 03/01/20 05:11 Ordered UA W/CHRISTA RFLX IF INDICATED [URIN] Stat Lab 02/29/20 12:25 Ordered Albuterol/Ipratropium [DuoNeb 3.0-0.5 MG/3 ML] Med 02/29/20 15:21 Ordered 3 ml NEB Q4HRRT PRN Cefepime [Maxipime in D5W 2 GM/50 ML] 2 gm Med 02/29/20 22:00 Ordered Premix Bag 1 bag IV Q8H DAPTOmycin [Cubicin] 800 mg Med 02/29/20 21:00 Active Sodium Chloride 0.9% [Normal Saline] 16 ml IV Q24H Enoxaparin [Lovenox] Med 02/29/20 21:00 Ordered 40 mg SUBCUT Q12HR Ibuprofen [Motrin] Med 02/29/20 15:21 Ordered 400 mg PO Q6H PRN Lactated Ringers [Ringers, Lactated] 1,000 ml Med 02/29/20 15:30 Ordered IV Q8H Morphine Med 02/29/20 15:57 Ordered 2 mg IVPUSH Q4H PRN Ondansetron [Zofran] Med 02/29/20 15:21 Ordered 4 mg IVPUSH Q4H PRN Sodium Chloride 0.9% [Saline Flush] Med 02/29/20 15:27 Ordered 2.5 ml FLUSH ASDIRECTED PRN Blood Culture x2 Reflex Set [OM.PC] Stat Oth 02/29/20 12:27 Ordered Saline Lock Insert [OM.PC] Stat Oth 02/29/20 12:24 Ordered Resuscitation Status Routine Resus Stat 02/29/20 15:21 Ordered Medication Orders Albuterol/Ipratropium (Duoneb 3.0-0.5 Mg/3 Ml) 3 ml NEB Q4HRRT PRN PRN Reason: Shortness Of Breath/wheezing Enoxaparin Sodium (Lovenox) 40 mg SUBCUT Q12HR [facility] Lactated Ringer's (Ringers, Lactated) 1,000 mls @ 125 mls/hr IV Q8H [facility] Last Admin: 02/29/20 15:57 Dose: 125 mls/hr Documented by: DESIREE Cefepime HCl 2 gm/ Premix 50 mls @ 100 mls/hr IV Q8H [facility] Daptomycin 800 mg/ Sodium (Chloride) 16 mls @ 480 mls/hr IV Q24H [facility] Ibuprofen (Motrin) 400 mg PO Q6H PRN PRN Reason: Pain (mild 1-3) Morphine Sulfate (Morphine) 2 mg IVPUSH Q4H PRN PRN Reason: Pain Ondansetron HCl (Zofran) 4 mg IVPUSH Q4H PRN PRN Reason: Nausea Sodium Chloride (Saline Flush) 2.5 ml FLUSH ASDIRECTED PRN PRN Reason: IV Use Assessment/Plan Comment:: This 29 year old male admitted severe sepsis, cellulitis to LLE and acute hypoxic respiratory failure 1. Severe sepsis, cellulitis LLE - Continue Cefepime, Due to weight will change Vancomycin to Daptomycin. - Obtain venous doppler to LLE rule out DVT - BC pending - Lactic acid improving with IVF resuscitation, repeat this evening at 1700. - Tachycardia improving, blood pressure stable with IVFs - Limit pain medications due to respiratory status. 2. Acute hypoxic respiratory failure - Likely related to sepsis, will monitor. - CTA negative for PE. - No acute infection noted - [place] PRN - Oxygen therapy, wean as possible - Concern with cocaine use. Monitor closely. 3. Tinea pedis - Lamisil daily to feet. 4. Cocaine abuse: - reports he has stopped x 1 week and is hoping to not restart. Counseled heavily on stopping use due to health risk including heart attack and lung infections. VTE prophylaxis: Lovenox BID Dispo: 2-3 days pending improvement
--- NOTE | 2020-02-29 16:44 | US ---
Left lower extremity deep venous ultrasound: Duplex and color Doppler evaluation was obtained of the left common femoral, superficial femoral, popliteal, peroneal and, anterior tibial and posterior tibial veins. Lymph node is seen with left groin believed to be within normal limits. Normal compression and Doppler blood flow are seen. Impression: 1. Nothing is seen to indicate deep venous thrombosis within the left lower extremity. Diagnostic code #2 This report was dictated in MDT
[2020-02-29] MEDS: Acetaminophen 325 MG Tab PO PRN (20:02)
[2020-02-29] MEDS: Ketorolac 15 MG/ML SDV IVPUSH PRN (20:03)
[2020-02-29] MEDS ORDERED: DAPTOmycin 500 MG Vial IV SCH (21:00)
[2020-02-29] MEDS: DAPTOmycin 800 MG in Sodium Chloride 0.9% 16 ML IV SCH (21:18)
[2020-02-29] MEDS: Enoxaparin 40 MG/0.4 ML Syringe SUBCUT SCH (21:23)
[2020-02-29] MEDS: Cefepime 2 GM in Premix Bag 1 BAG IV SCH (21:37)
[2020-02-29] MEDS ORDERED: LORazepam 2 MG/ML SDV IVPUSH PRN (23:40)
[2020-03-01] MEDS: Lactated Ringers 1,000 ML IV SCH ×3 (01:16→19:20)
[2020-03-01] MEDS: Ketorolac 15 MG/ML SDV IVPUSH PRN ×3 (02:02→16:36)
[2020-03-01] MEDS: Cefepime 2 GM in Premix Bag 1 BAG IV SCH ×3 (05:52→21:27)
[2020-03-01 07:01] LABS: BLOOD UREA NITROGEN,BUN 7 mg/dL (7.0-18.0); CARBON DIOXIDE,CO2 24.8 mmol/L (21.0-32.0); CHLORIDE,CL 103 mmol/L (98-107); GLUCOSE RANDOM 121 mg/dL (74-106); POTASSIUM,K 3.7 mmol/L (3.5-5.1); SODIUM,NA 137 mmol/L (136-148)
--- NOTE | 2020-03-01 09:18 | PCM.PN ---
- General Info Date of Service: 03/01/20 Admission Dx/Problem (Free Text): Admission Diagnosis/Problem Admission Diagnosis/Problem Severe sepsis, LLE cellulitis Subjective Update: SLeepy this morning, awakens and is quite rude to staff then falls asleep again. Denies chest pain or SOB. Reports sore throat continues no improvement. Denies diarrhea or urinary concerns. Reports pain to leg is moderate. Functional Status: Reports: Pain Controlled, Urinating - Review of Systems General: Reports: Fever, Fatigue, Malaise HEENT: Reports: Sore Throat. Denies: Headaches Pulmonary: Reports: Cough. Denies: Shortness of Breath Cardiovascular: Reports: No Symptoms. Denies: Chest Pain Gastrointestinal: Reports: No Symptoms. Denies: Abdominal Pain, Nausea, Vomiting Genitourinary: Reports: No Symptoms. Denies: Dysuria, Frequency Musculoskeletal: Reports: Leg Pain Skin: Reports: Other (redness to leg) Neurological: Reports: No Symptoms Psychiatric: Reports: No Symptoms - Patient Data Vitals - Most Recent: Last Vital Signs Temp 98.2 F 03/01/20 07:44 Pulse 107 H 03/01/20 07:44 Resp 36 H 03/01/20 07:44 BP 145/91 H 03/01/20 07:44 Pulse Ox 100 03/01/20 07:44 Weight - Most Recent: 142.882 kg I&O - Last 24 Hours: Intake & Output 02/29/20 03/01/20 03/01/20 22:59 06:59 14:59 Intake Total 1450 1350 Output Total 1000 880 Balance 450 470 Lab Results Last 24 Hours: Laboratory Results - last 24 hr 02/29/20 02/29/20 02/29/20 Range/Units 12:21 12:21 12:21 WBC 23.11 H (4.0-11.0) K/uL RBC 5.32 (4.50-5.90) M/uL Hgb 15.8 (13.0-17.0) g/dL Hct 49.2 (38.0-50.0) % MCV 92.5 (80.0-98.0) fL MCH 29.7 (27.0-32.0) pg MCHC 32.1 (31.0-37.0) g/dL RDW Std Deviation 46.1 (28.0-62.0) fl RDW Coeff of [place]en 14 (11.0-15.0) % Plt Count 218 (150-400) K/uL MPV 11.00 (7.40-12.00) fL Neut % (Auto) 91.1 H (48.0-80.0) % Lymph % (Auto) 2.3 L (16.0-40.0) % [place] % (Auto) 6.4 (0.0-15.0) % Eos % (Auto) 0.0 (0.0-7.0) % Baso % (Auto) 0.2 (0.0-1.5) % Neut # (Auto) 21.1 H (1.4-5.7) K/uL Lymph # (Auto) 0.5 L (0.6-2.4) K/uL [place] # (Auto) 1.5 H (0.0-0.8) K/uL Eos # (Auto) 0.0 (0.0-0.7) K/uL Baso # (Auto) 0.0 (0.0-0.1) K/uL Nucleated RBC % 0.0 /100WBC Nucleated RBCs # 0 K/uL ABG pH (7.35-7.45) ABG pCO2 (35-45) mmHG ABG pO2 (75-100) mmHG ABG HCO3 (22-26) mEq/L ABG Total CO2 ABG Base Excess (-2.0-2.0) Lactate 2.6 H* (0.20-2.00) mmol/L Sodium 138 (136-148) mmol/L Potassium 4.2 (3.5-5.1) mmol/L Chloride 102 (98-107) mmol/L Carbon Dioxide 28.7 (21.0-32.0) mmol/L BUN 8 (7.0-18.0) mg/dL Creatinine 1.1 (0.8-1.3) mg/dL Est Cr Clr Drug Dosing 108.76 mL/min Estimated GFR (MDRD) > 60.0 ml/min Glucose 107 H (74-106) mg/dL Calcium 9.0 (8.5-10.1) mg/dL Magnesium (1.8-2.4) mg/dL Total Bilirubin 0.4 (0.2-1.0) mg/dL AST 26 (15-37) IU/L ALT 57 (14-63) IU/L Alkaline Phosphatase 58 (46-116) U/L Troponin I < 0.050 (0.000-0.056) ng/mL Total Protein 7.6 (6.4-8.2) g/dL Albumin 3.9 (3.4-5.0) g/dL Globulin 3.7 (2.6-4.0) g/dL Albumin/Globulin Ratio 1.1 (0.9-1.6) Urine Color Urine Appearance Urine pH (5.0-8.0) Ur Specific [place] (1.001-1.035) Urine Protein (NEGATIVE) mg/dL Urine Glucose (UA) (NEGATIVE) mg/dL Urine Ketones (NEGATIVE) mg/dL Urine Occult Blood (NEGATIVE) Urine Nitrite (NEGATIVE) Urine Bilirubin (NEGATIVE) Urine Urobilinogen (<2.0) EU/dL Ur Leukocyte Esterase (NEGATIVE) Urine RBC (0-2/HPF) Urine WBC (0-5/HPF) Ur Epithelial Cells (NONE-FEW) Amorphous Sediment (NEGATIVE) Urine Bacteria (NEGATIVE) Urine Mucus (NONE-MOD) Urine Opiates Screen (NEGATIVE) Ur Oxycodone Screen (NEGATIVE) Urine Methadone Screen (NEGATIVE) Ur Barbiturates Screen (NEGATIVE) Ur Phencyclidine Scrn (NEGATIVE) Ur Amphetamine Screen (NEGATIVE) U Methamphetamines Scrn (NEGATIVE) U Benzodiazepines Scrn (NEGATIVE) U Cocaine Metab Screen (NEGATIVE) U Marijuana (THC) Screen (NEGATIVE) SARS Virus RNA (PCR) (NEGATIVE) 02/29/20 02/29/20 02/29/20 Range/Units 12:58 13:54 17:45 WBC (4.0-11.0) K/uL RBC (4.50-5.90) M/uL Hgb (13.0-17.0) g/dL Hct (38.0-50.0) % MCV (80.0-98.0) fL MCH (27.0-32.0) pg MCHC (31.0-37.0) g/dL RDW Std Deviation (28.0-62.0) fl RDW Coeff of [place] (11.0-15.0) % Plt Count (150-400) K/uL MPV (7.40-12.00) fL Neut % (Auto) (48.0-80.0) % Lymph % (Auto) (16.0-40.0) % [place] % (Auto) (0.0-15.0) % Eos % (Auto) (0.0-7.0) % Baso % (Auto) (0.0-1.5) % Neut # (Auto) (1.4-5.7) K/uL Lymph # (Auto) (0.6-2.4) K/uL [place] # (Auto) (0.0-0.8) K/uL Eos # (Auto) (0.0-0.7) K/uL Baso # (Auto) (0.0-0.1) K/uL Nucleated RBC % /100WBC Nucleated RBCs # K/uL ABG pH (7.35-7.45) ABG pCO2 (35-45) mmHG ABG pO2 (75-100) mmHG ABG HCO3 (22-26) mEq/L ABG Total CO2 ABG Base Excess (-2.0-2.0) Lactate 2.1 H* (0.20-2.00) mmol/L Sodium (136-148) mmol/L Potassium (3.5-5.1) mmol/L Chloride (98-107) mmol/L Carbon Dioxide (21.0-32.0) mmol/L BUN (7.0-18.0) mg/dL Creatinine (0.8-1.3) mg/dL Est Cr Clr Drug Dosing mL/min Estimated GFR (MDRD) ml/min Glucose (74-106) mg/dL Calcium (8.5-10.1) mg/dL Magnesium (1.8-2.4) mg/dL Total Bilirubin (0.2-1.0) mg/dL AST (15-37) IU/L ALT (14-63) IU/L Alkaline Phosphatase (46-116) U/L Troponin I (0.000-0.056) ng/mL Total Protein (6.4-8.2) g/dL Albumin (3.4-5.0) g/dL Globulin (2.6-4.0) g/dL Albumin/Globulin Ratio (0.9-1.6) Urine Color YELLOW Urine Appearance CLEAR Urine pH 8.0 (5.0-8.0) Ur Specific [place] 1.020 (1.001-1.035) Urine Protein 100 H (NEGATIVE) mg/dL Urine Glucose (UA) NEGATIVE (NEGATIVE) mg/dL Urine Ketones NEGATIVE (NEGATIVE) mg/dL Urine Occult Blood NEGATIVE (NEGATIVE) Urine Nitrite NEGATIVE (NEGATIVE) Urine Bilirubin NEGATIVE (NEGATIVE) Urine Urobilinogen 0.2 (<2.0) EU/dL Ur Leukocyte Esterase NEGATIVE (NEGATIVE) Urine RBC NONE SEEN (0-2/HPF) Urine WBC 2-3 (0-5/HPF) Ur Epithelial Cells NOT SEEN (NONE-FEW) Amorphous Sediment RARE (NEGATIVE) Urine Bacteria FEW (NEGATIVE) Urine Mucus RARE (NONE-MOD) Urine Opiates Screen (NEGATIVE) Ur Oxycodone Screen (NEGATIVE) Urine Methadone Screen (NEGATIVE) Ur Barbiturates Screen (NEGATIVE) Ur Phencyclidine Scrn (NEGATIVE) Ur Amphetamine Screen (NEGATIVE) U Methamphetamines Scrn (NEGATIVE) U Benzodiazepines Scrn (NEGATIVE) U Cocaine Metab Screen (NEGATIVE) U Marijuana (THC) Screen (NEGATIVE) SARS Virus RNA (PCR) NEGATIVE (NEGATIVE) 02/29/20 02/29/20 03/01/20 Range/Units 18:35 22:28 04:20 WBC (4.0-11.0) K/uL RBC (4.50-5.90) M/uL Hgb (13.0-17.0) g/dL Hct (38.0-50.0) % MCV (80.0-98.0) fL MCH (27.0-32.0) pg MCHC (31.0-37.0) g/dL RDW Std Deviation (28.0-62.0) fl RDW Coeff of [place]en (11.0-15.0) % Plt Count (150-400) K/uL MPV (7.40-12.00) fL Neut % (Auto) (48.0-80.0) % Lymph % (Auto) (16.0-40.0) % [place] % (Auto) (0.0-15.0) % Eos % (Auto) (0.0-7.0) % Baso % (Auto) (0.0-1.5) % Neut # (Auto) (1.4-5.7) K/uL Lymph # (Auto) (0.6-2.4) K/uL [place] # (Auto) (0.0-0.8) K/uL Eos # (Auto) (0.0-0.7) K/uL Baso # (Auto) (0.0-0.1) K/uL Nucleated RBC % /100WBC Nucleated RBCs # K/uL ABG pH 7.395 (7.35-7.45) ABG pCO2 40 (35-45) mmHG ABG pO2 96 (75-100) mmHG ABG HCO3 24 (22-26) mEq/L ABG Total CO2 21.7 ABG Base Excess -0.4 (-2.0-2.0) Lactate 1.6 (0.20-2.00) mmol/L Sodium (136-148) mmol/L Potassium (3.5-5.1) mmol/L Chloride (98-107) mmol/L Carbon Dioxide (21.0-32.0) mmol/L BUN (7.0-18.0) mg/dL Creatinine (0.8-1.3) mg/dL Est Cr Clr Drug Dosing mL/min Estimated GFR (MDRD) ml/min Glucose (74-106) mg/dL Calcium (8.5-10.1) mg/dL Magnesium (1.8-2.4) mg/dL Total Bilirubin (0.2-1.0) mg/dL AST (15-37) IU/L ALT (14-63) IU/L Alkaline Phosphatase (46-116) U/L Troponin I (0.000-0.056) ng/mL Total Protein (6.4-8.2) g/dL Albumin (3.4-5.0) g/dL Globulin (2.6-4.0) g/dL Albumin/Globulin Ratio (0.9-1.6) Urine Color Urine Appearance Urine pH (5.0-8.0) Ur Specific [place] (1.001-1.035) Urine Protein (NEGATIVE) mg/dL Urine Glucose (UA) (NEGATIVE) mg/dL Urine Ketones (NEGATIVE) mg/dL Urine Occult Blood (NEGATIVE) Urine Nitrite (NEGATIVE) Urine Bilirubin (NEGATIVE) Urine Urobilinogen (<2.0) EU/dL Ur Leukocyte Esterase (NEGATIVE) Urine RBC (0-2/HPF) Urine WBC (0-5/HPF) Ur Epithelial Cells (NONE-FEW) Amorphous Sediment (NEGATIVE) Urine Bacteria (NEGATIVE) Urine Mucus (NONE-MOD) Urine Opiates Screen NEGATIVE (NEGATIVE) Ur Oxycodone Screen NEGATIVE (NEGATIVE) Urine Methadone Screen NEGATIVE (NEGATIVE) Ur Barbiturates Screen NEGATIVE (NEGATIVE) Ur Phencyclidine Scrn NEGATIVE (NEGATIVE) Ur Amphetamine Screen NEGATIVE (NEGATIVE) U Methamphetamines Scrn NEGATIVE (NEGATIVE) U Benzodiazepines Scrn NEGATIVE (NEGATIVE) U Cocaine Metab Screen POSITIVE (NEGATIVE) U Marijuana (THC) Screen NEGATIVE (NEGATIVE) SARS Virus RNA (PCR) (NEGATIVE) 03/01/20 03/01/20 Range/Units 06:32 06:32 WBC 20.08 H (4.0-11.0) K/uL RBC 4.56 (4.50-5.90) M/uL Hgb 13.5 (13.0-17.0) g/dL Hct 42.2 (38.0-50.0) % MCV 92.5 (80.0-98.0) fL MCH 29.6 (27.0-32.0) pg MCHC 32.0 (31.0-37.0) g/dL RDW Std Deviation 47.0 (28.0-62.0) fl RDW Coeff of [place] 14 (11.0-15.0) % Plt Count 180 (150-400) K/uL MPV 10.70 (7.40-12.00) fL Neut % (Auto) 88.0 H (48.0-80.0) % Lymph % (Auto) 4.9 L (16.0-40.0) % [place] % (Auto) 6.9 (0.0-15.0) % Eos % (Auto) 0.0 (0.0-7.0) % Baso % (Auto) 0.2 (0.0-1.5) % Neut # (Auto) 17.7 H (1.4-5.7) K/uL Lymph # (Auto) 1.0 (0.6-2.4) K/uL [place] # (Auto) 1.4 H (0.0-0.8) K/uL Eos # (Auto) 0.0 (0.0-0.7) K/uL Baso # (Auto) 0.0 (0.0-0.1) K/uL Nucleated RBC % 0.0 /100WBC Nucleated RBCs # 0 K/uL ABG pH (7.35-7.45) ABG pCO2 (35-45) mmHG ABG pO2 (75-100) mmHG ABG HCO3 (22-26) mEq/L ABG Total CO2 ABG Base Excess (-2.0-2.0) Lactate (0.20-2.00) mmol/L Sodium 137 (136-148) mmol/L Potassium 3.7 (3.5-5.1) mmol/L Chloride 103 (98-107) mmol/L Carbon Dioxide 24.8 (21.0-32.0) mmol/L BUN 7 (7.0-18.0) mg/dL Creatinine 0.9 (0.8-1.3) mg/dL Est Cr Clr Drug Dosing 133.11 mL/min Estimated GFR (MDRD) > 60.0 ml/min Glucose 121 H (74-106) mg/dL Calcium 8.5 (8.5-10.1) mg/dL Magnesium 2.0 (1.8-2.4) mg/dL Total Bilirubin (0.2-1.0) mg/dL AST (15-37) IU/L ALT (14-63) IU/L Alkaline Phosphatase (46-116) U/L Troponin I (0.000-0.056) ng/mL Total Protein (6.4-8.2) g/dL Albumin (3.4-5.0) g/dL Globulin (2.6-4.0) g/dL Albumin/Globulin Ratio (0.9-1.6) Urine Color Urine Appearance Urine pH (5.0-8.0) Ur Specific [place] (1.001-1.035) Urine Protein (NEGATIVE) mg/dL Urine Glucose (UA) (NEGATIVE) mg/dL Urine Ketones (NEGATIVE) mg/dL Urine Occult Blood (NEGATIVE) Urine Nitrite (NEGATIVE) Urine Bilirubin (NEGATIVE) Urine Urobilinogen (<2.0) EU/dL Ur Leukocyte Esterase (NEGATIVE) Urine RBC (0-2/HPF) Urine WBC (0-5/HPF) Ur Epithelial Cells (NONE-FEW) Amorphous Sediment (NEGATIVE) Urine Bacteria (NEGATIVE) Urine Mucus (NONE-MOD) Urine Opiates Screen (NEGATIVE) Ur Oxycodone Screen (NEGATIVE) Urine Methadone Screen (NEGATIVE) Ur Barbiturates Screen (NEGATIVE) Ur Phencyclidine Scrn (NEGATIVE) Ur Amphetamine Screen (NEGATIVE) U Methamphetamines Scrn (NEGATIVE) U Benzodiazepines Scrn (NEGATIVE) U Cocaine Metab Screen (NEGATIVE) U Marijuana (THC) Screen (NEGATIVE) SARS Virus RNA (PCR) (NEGATIVE) Med Orders - Current: Current Medications Acetaminophen (Tylenol) 650 mg PO Q4H PRN PRN Reason: Pain Last Admin: 02/29/20 20:02 Dose: 650 mg Documented by: Albuterol/Ipratropium (Duoneb 3.0-0.5 Mg/3 Ml) 3 ml NEB Q4HRRT PRN PRN Reason: Shortness Of Breath/wheezing Last Admin: 02/29/20 16:40 Dose: 3 ml Documented by: Enoxaparin Sodium (Lovenox) 40 mg SUBCUT Q12HR MARCIA Last Admin: 02/29/20 21:23 Dose: 40 mg Documented by: Lactated Ringer's (Ringers, Lactated) 1,000 mls @ 125 mls/hr IV Q8H MARCIA Last Admin: 03/01/20 08:33 Dose: 125 mls/hr Documented by: Cefepime HCl 2 gm/ Premix 50 mls @ 100 mls/hr IV Q8H MARCIA Last Admin: 03/01/20 05:52 Dose: 100 mls/hr Documented by: Daptomycin 800 mg/ Sodium (Chloride) 16 mls @ 480 mls/hr IV Q24H MARCIA Last Admin: 02/29/20 21:18 Dose: 480 mls/hr Documented by: Ketorolac Tromethamine (Toradol) 15 mg IVPUSH Q6H PRN PRN Reason: Pain Last Admin: 03/01/20 02:02 Dose: 15 mg Documented by: Lorazepam (Ativan) 1 mg IVPUSH ONETIME PRN PRN Reason: Anxiety Last Admin: 02/29/20 23:51 Dose: 1 mg Documented by: Ondansetron HCl (Zofran) 4 mg IVPUSH Q4H PRN PRN Reason: Nausea Sodium Chloride (Saline Flush) 2.5 ml FLUSH ASDIRECTED PRN PRN Reason: IV Use Terbinafine HCl (Lamisil At 1% Crm) 0 gm TOP DAILY MARCIA Discontinued Medications Acetaminophen (Tylenol) 650 mg PO NOW ONE Stop: 02/29/20 14:02 Last Admin: 02/29/20 14:22 Dose: 650 mg Documented by: Lactated Ringer's (Ringers, Lactated) 1,000 mls @ 999 mls/hr IV .BOLUS ONE Stop: 02/29/20 13:45 Last Admin: 02/29/20 12:52 Dose: 999 mls/hr Documented by: Lactated Ringer's (Ringers, Lactated) 1,000 mls @ 999 mls/hr IV .BOLUS ONE Stop: 02/29/20 13:46 Last Admin: 02/29/20 12:55 Dose: 999 mls/hr Documented by: Lactated Ringer's (Ringers, Lactated) 331 mls @ 999 mls/hr IV .BOLUS ONE Stop: 02/29/20 13:05 Last Admin: 02/29/20 13:53 Dose: 999 mls/hr Documented by: Cefepime HCl 2 gm/ Premix 50 mls @ 100 mls/hr IV ONETIME ONE Stop: 02/29/20 13:24 Last Admin: 02/29/20 15:03 Dose: 100 mls/hr Documented by: Vancomycin HCl 2 gm/ Sodium (Chloride) 500 mls @ 250 mls/hr IV ONETIME ONE Stop: 02/29/20 15:29 Last Admin: 02/29/20 13:55 Dose: 250 mls/hr Documented by: Daptomycin 800 mg/ Sodium (Chloride) 16 mls @ 480 mls/hr IV Q24H [facility] Ibuprofen (Motrin) 400 mg PO Q6H PRN PRN Reason: Pain (mild 1-3) Iopamidol (Isovue Multipack-370 (76%)) 50 ml IVPUSH ONETIME STA Stop: 02/29/20 15:27 Last Admin: 02/29/20 15:26 Dose: 50 ml Documented by: Morphine Sulfate (Morphine) 2 mg IVPUSH Q4H PRN PRN Reason: Pain Last Admin: 02/29/20 16:16 Dose: 2 mg Documented by: Sodium Chloride (Saline Flush) 10 ml FLUSH ASDIRECTED PRN PRN Reason: Keep Vein Open Last Admin: 02/29/20 12:53 Dose: 10 ml Documented by: Sodium Chloride (Saline Flush) 2.5 ml FLUSH ASDIRECTED PRN PRN Reason: Keep Vein Open Last Admin: 02/29/20 12:53 Dose: 2.5 ml Documented by: Vancomycin HCl (Pharmacy To Dose - Vancomycin) 1 dose .XX ONETIME ONE Stop: 02/29/20 12:57 Last Admin: 02/29/20 13:30 Dose: Not Given Documented by: - Exam Quality Assessment: Supplemental Oxygen, DVT Prophylaxis General: Alert, Oriented, No Acute Distress. No: Cooperative HEENT: Other (increased erythema to throat with slight ulcerations to posterior pharynx) Neck: Supple Lungs: Clear to Auscultation, Normal Respiratory Effort, Other (noted to have sleep apnea with hypoxia) Cardiovascular: Regular Rate, Regular Rhythm GI/Abdominal Exam: Normal Bowel Sounds, Soft, Non-Tender Extremities: Normal Range of Motion Wound/Incisions: No Drainage, Erythema (no worsening, mild improvement.) Neurological: No New Focal Deficit Psy/Mental Status: Alert, Normal Affect, Normal Mood Sepsis Event Note - Evaluation Sepsis Screening Result: Sepsis Risk - Focused Exam Vital Signs: Vital Signs Temp Temp Pulse Resp BP Pulse Ox 03/01/20 07:44 98.2 F 107 H 36 H 145/91 H 100 03/01/20 04:00 97 F 99 29 H 141/90 H 99 02/29/20 23:51 97.8 F 102 H 26 H 138/88 98 02/29/20 23:50 100 02/29/20 21:25 99.3 F Date Exam was Performed: 03/01/20 Time Exam was Performed: 12:35 - Problem List & Annotations (1) Severe sepsis SNOMED Code(s): 57114344 Code(s): A41.9 - SEPSIS, UNSPECIFIED ORGANISM; R65.20 - SEVERE SEPSIS WITHOUT SEPTIC SHOCK Status: Acute Current Visit: Yes (2) Cellulitis SNOMED Code(s): 046388846 Code(s): L03.90 - CELLULITIS, UNSPECIFIED Status: Acute Current Visit: No Onset Date: 12/07/14 (3) Acute respiratory failure with hypoxia SNOMED Code(s): 67379791, 811862420 Code(s): J96.01 - ACUTE RESPIRATORY FAILURE WITH HYPOXIA Status: Acute Current Visit: Yes (4) Obesity SNOMED Code(s): 208073144, 782878315 Code(s): E66.9 - OBESITY, UNSPECIFIED Status: Chronic Current Visit: Yes (5) Cocaine abuse SNOMED Code(s): 07106891 Code(s): F14.10 - COCAINE ABUSE, UNCOMPLICATED Status: Chronic Current Visit: Yes (6) Athlete's foot on left SNOMED Code(s): 9678916 Code(s): B35.3 - TINEA PEDIS Status: Acute Current Visit: Yes (7) Athlete's foot on right SNOMED Code(s): 2189341 Code(s): B35.3 - TINEA PEDIS Status: Acute Current Visit: Yes - Problem List Review Problem List Initiated/Reviewed/Updated: Yes - My Orders Last 24 Hours: My Active Orders 02/29/20 Lunch Regular Diet [DIET] 02/29/20 15:21 Oxygen Therapy [RC] PRN Up With Assistance [RC] ASDIRECTED VTE/DVT Education [RC] PER UNIT ROUTINE Vital Signs [RC] Q4H Albuterol/Ipratropium [DuoNeb 3.0-0.5 MG/3 ML] 3 ml NEB Q4HRRT PRN Ondansetron [Zofran] 4 mg IVPUSH Q4H PRN Resuscitation Status Routine 02/29/20 15:23 RT Aerosol Therapy [RC] ASDIRECTED 02/29/20 15:27 Sodium Chloride 0.9% [Saline Flush] 2.5 ml FLUSH ASDIRECTED PRN 02/29/20 15:28 Intake and Output [RC] Q12H Telemetry Monitoring [Cardiac Monitoring] [RC] Q8H 02/29/20 15:30 Lactated Ringers [Ringers, Lactated] 1,000 ml IV Q8H 02/29/20 15:53 Communication Order [RC] ROUTINE 02/29/20 16:25 Acetaminophen [Tylenol] 650 mg PO Q4H PRN 02/29/20 16:53 Ketorolac [Toradol] 15 mg IVPUSH Q6H PRN 02/29/20 21:00 Enoxaparin [Lovenox] 40 mg SUBCUT Q12HR 02/29/20 22:00 Cefepime [Maxipime in D5W 2 GM/50 ML] 2 gm Premix Bag 1 bag IV Q8H 03/01/20 09:00 Terbinafine [LamISIL AT 1% Crm] See Dose Instructions TOP DAILY - Plan Plan:: This 29 year old male admitted severe sepsis, cellulitis to E and acute hypoxic respiratory failure 1. Severe sepsis, cellulitis E - Continue Cefepime and Daptomycin. - Venous doppler to E ruled out DVT - BC negative x 1 day - Lactic acidosis resolved. - Tachycardia improved - Limit pain medications due to respiratory status. 2. Acute hypoxic respiratory failure - Likely related to sepsis, will monitor. - CTA negative for PE. - No acute infection noted - ABG normal no hypercapnia. - Definitely has sleep apnea, will need follow up sleep study as outpatient. - Duonebs PRN - Oxygen therapy, wean as possible - Concern with cocaine lung. Monitor closely. -Reports sore throat continues, increase erythema today. Will add strep/throat culture and chloropeptic spray. Could also be irritation from cocaine use. 3. Tinea pedis - Lamisil daily to feet. 4. Cocaine abuse: - reports he has stopped x 1 week and is hoping to not restart. Counseled heavily on stopping use due to health risk including heart attack and lung infections. VTE prophylaxis: Lovenox BID Dispo: 2-3 days pending improvement
[2020-03-01] MEDS: Enoxaparin 40 MG/0.4 ML Syringe SUBCUT SCH ×2 (09:31→20:16)
[2020-03-01] MEDS: Acetaminophen 325 MG Tab PO PRN (09:32)
[2020-03-01] MEDS: TERBINAFINE 1% TOP SCH (09:38)
--- NOTE | 2020-03-01 15:36 | CT ---
Head CT Technique: Multiple axial sections through the brain were obtained. Intravenous contrast was not utilized. Comparison: No prior intracranial imaging. Findings: Ventricles along with basal cisterns and sulci over the convexities are within normal limits for the patient's age. No abnormal parenchymal densities are seen. No evidence of intracranial hemorrhage. No midline shift or mass-effect is seen. Bone window settings were reviewed. Visualized paranasal sinuses and visualized mastoid sinuses are clear. No acute calvarial finding is seen. Impression: 1. Nothing acute is appreciated on noncontrast head CT exam. If patient symptoms warrant further evaluation, MRI could then be considered. Diagnostic code #1 This report was dictated in MDT
[2020-03-01] MEDS ORDERED: oxyCODONE 5 MG Tab PO PRN (15:47)
[2020-03-01] MEDS: DAPTOmycin 800 MG in Sodium Chloride 0.9% 16 ML IV SCH (20:31)
[2020-03-01] MEDS: Ketorolac 30 MG/ML SDV IVPUSH PRN (21:22)
[2020-03-01] MEDS: Pantoprazole 40 MG in Sodium Chloride 0.9% 10 ML IV SCH (21:26)
[2020-03-01] MEDS: oxyCODONE 5 MG Tab PO PRN (23:34)
[2020-03-02] MEDS: Lactated Ringers 1,000 ML IV SCH ×5 (01:24→21:37)
[2020-03-02] MEDS: oxyCODONE 5 MG Tab PO PRN ×4 (04:44→23:58)
[2020-03-02] MEDS: Ketorolac 30 MG/ML SDV IVPUSH PRN ×2 (04:45→19:46)
[2020-03-02] MEDS: Phenol 1.4% Oral Spray 177 ML Bottle MUCMEM PRN ×2 (04:53→09:04)
[2020-03-02] MEDS: Cefepime 2 GM in Premix Bag 1 BAG IV SCH ×3 (05:43→21:54)
[2020-03-02 06:20] LABS: BLOOD UREA NITROGEN,BUN 7 mg/dL (7.0-18.0); CARBON DIOXIDE,CO2 28.8 mmol/L (21.0-32.0); CHLORIDE,CL 106 mmol/L (98-107); GLUCOSE RANDOM 140 mg/dL (74-106); POTASSIUM,K 3.8 mmol/L (3.5-5.1); SODIUM,NA 140 mmol/L (136-148)
[2020-03-02] MEDS: Enoxaparin 40 MG/0.4 ML Syringe SUBCUT SCH ×2 (08:23→21:19)
[2020-03-02] MEDS: TERBINAFINE 1% TOP SCH (08:27)
[2020-03-02] MEDS: Pantoprazole 40 MG in Sodium Chloride 0.9% 10 ML IV SCH (08:55)
[2020-03-02] MEDS: Acetaminophen 325 MG Tab PO PRN ×2 (10:36→19:47)
--- NOTE | 2020-03-02 13:22 | PCM.PN ---
- General Info Date of Service: 03/02/20 Admission Dx/Problem (Free Text): Admission Diagnosis/Problem Admission Diagnosis/Problem Severe sepsis, LLE cellulitis Subjective Update: seen at bedside, on RA now, feeling more alert now. Leg pain is better - Review of Systems General: Reports: Fatigue, Malaise. Denies: Fever, Weakness HEENT: Reports: Sore Throat Cardiovascular: Denies: Chest Pain, Palpitations Gastrointestinal: Denies: Abdominal Pain, Constipation Genitourinary: Denies: Dysuria, Frequency, Burning Musculoskeletal: Denies: Neck Pain, Shoulder Pain, Arm Pain, Hand Pain Skin: Reports: Rash. Denies: Cyanosis, Jaundice, Mottled Neurological: Denies: Confusion, Dizziness, Headache Psychiatric: Denies: Confusion, Depression - Patient Data Vitals - Most Recent: Last Vital Signs Temp 37.1 C 03/02/20 11:53 Pulse 77 03/02/20 11:53 Resp 17 03/02/20 11:53 BP 139/89 03/02/20 11:53 Pulse Ox 97 03/02/20 11:53 Weight - Most Recent: 148 kg I&O - Last 24 Hours: Intake & Output 03/01/20 03/02/20 03/02/20 22:59 06:59 14:59 Intake Total 2278 2026 Output Total 2500 600 Balance -222 1426 Lab Results Last 24 Hours: Laboratory Results - last 24 hr 03/02/20 03/02/20 Range/Units 05:50 05:50 WBC 14.62 H (4.0-11.0) K/uL RBC 4.40 L (4.50-5.90) M/uL Hgb 12.8 L (13.0-17.0) g/dL Hct 41.1 (38.0-50.0) % MCV 93.4 (80.0-98.0) fL MCH 29.1 (27.0-32.0) pg MCHC 31.1 (31.0-37.0) g/dL RDW Std Deviation 46.9 (28.0-62.0) fl RDW Coeff of Coreen 14 (11.0-15.0) % Plt Count 183 (150-400) K/uL MPV 10.60 (7.40-12.00) fL Neut % (Auto) 79.1 (48.0-80.0) % Lymph % (Auto) 9.4 L (16.0-40.0) % [place] % (Auto) 11.2 (0.0-15.0) % Eos % (Auto) 0.0 (0.0-7.0) % Baso % (Auto) 0.3 (0.0-1.5) % Neut # (Auto) 11.6 H (1.4-5.7) K/uL Lymph # (Auto) 1.4 (0.6-2.4) K/uL [place] # (Auto) 1.6 H (0.0-0.8) K/uL Eos # (Auto) 0.0 (0.0-0.7) K/uL Baso # (Auto) 0.0 (0.0-0.1) K/uL Nucleated RBC % 0.0 /100WBC Nucleated RBCs # 0 K/uL Sodium 140 (136-148) mmol/L Potassium 3.8 (3.5-5.1) mmol/L Chloride 106 (98-107) mmol/L Carbon Dioxide 28.8 (21.0-32.0) mmol/L BUN 7 (7.0-18.0) mg/dL Creatinine 0.9 (0.8-1.3) mg/dL Est Cr Clr Drug Dosing 133.11 mL/min Estimated GFR (MDRD) > 60.0 ml/min Glucose 140 H (74-106) mg/dL Calcium 8.1 L (8.5-10.1) mg/dL [facility] Results Last 24 Hours: Microbiology 02/29/20 12:42 Aerobic Blood Culture - Preliminary Blood - Venous - Lab Draw Anaerobic Blood Culture - Preliminary NO GROWTH AFTER 2 DAYS 02/29/20 12:21 Aerobic Blood Culture - Preliminary Blood - Venous NO GROWTH AFTER 2 DAYS Anaerobic Blood Culture - Preliminary NO GROWTH AFTER 2 DAYS 03/01/20 14:45 Group A Streptococcus Rapid Screen - Final Throat NEGATIVE STREP A SCREEN REFERENCE RANGE: NEGATIVE Med Orders - Current: Current Medications Acetaminophen (Tylenol) 650 mg PO Q4H PRN PRN Reason: Pain Last Admin: 03/02/20 10:36 Dose: 650 mg Documented by: Albuterol/Ipratropium (Duoneb 3.0-0.5 Mg/3 Ml) 3 ml NEB Q4HRRT PRN PRN Reason: Shortness Of Breath/wheezing Last Admin: 02/29/20 16:40 Dose: 3 ml Documented by: Enoxaparin Sodium (Lovenox) 40 mg SUBCUT Q12HR [facility] Last Admin: 03/02/20 08:23 Dose: 40 mg Documented by: Lactated Ringer's (Ringers, Lactated) 1,000 mls @ 125 mls/hr IV Q8H [facility] Last Admin: 03/02/20 09:02 Dose: Not Given Documented by: Cefepime HCl 2 gm/ Premix 50 mls @ 100 mls/hr IV Q8H [facility] Last Admin: 03/02/20 05:43 Dose: 100 mls/hr Documented by: Pantoprazole Sodium 40 mg/ (Sodium Chloride) 10 mls @ 300 mls/hr IV DAILY [facility] Last Admin: 03/02/20 08:55 Dose: 300 mls/hr Documented by: Daptomycin 1,200 mg/ Sodium (Chloride) 24 mls @ 480 mls/hr IVPUSH Q24H [facility] Ketorolac Tromethamine (Toradol) 30 mg IVPUSH Q6H PRN PRN Reason: Pain Stop: 03/06/20 21:05 Last Admin: 03/02/20 04:45 Dose: 30 mg Documented by: Lorazepam (Ativan) 1 mg IVPUSH ONETIME PRN PRN Reason: Anxiety Last Admin: 02/29/20 23:51 Dose: 1 mg Documented by: Ondansetron HCl (Zofran) 4 mg IVPUSH Q4H PRN PRN Reason: Nausea Oxycodone HCl (Oxycodone) 5 mg PO Q4H PRN PRN Reason: Pain Last Admin: 03/02/20 04:44 Dose: 5 mg Documented by: Phenol/Menthol (Chloraseptic Throat [place]) 0 ml MUCMEM Q2H PRN PRN Reason: Sore Throat Last Admin: 03/02/20 09:04 Dose: 2 spray Documented by: Sodium Chloride (Saline Flush) 2.5 ml FLUSH ASDIRECTED PRN PRN Reason: IV Use Terbinafine HCl (Lamisil At 1% Crm) 0 gm TOP DAILY [facility] Last Admin: 03/02/20 08:27 Dose: 1 applic Documented by: Discontinued Medications Acetaminophen (Tylenol) 650 mg PO NOW ONE Stop: 02/29/20 14:02 Last Admin: 02/29/20 14:22 Dose: 650 mg Documented by: Lactated Ringer's (Ringers, Lactated) 1,000 mls @ 999 mls/hr IV .BOLUS ONE Stop: 02/29/20 13:45 Last Admin: 02/29/20 12:52 Dose: 999 mls/hr Documented by: Lactated Ringer's (Ringers, Lactated) 1,000 mls @ 999 mls/hr IV .BOLUS ONE Stop: 02/29/20 13:46 Last Admin: 02/29/20 12:55 Dose: 999 mls/hr Documented by: Lactated Ringer's (Ringers, Lactated) 331 mls @ 999 mls/hr IV .BOLUS ONE Stop: 02/29/20 13:05 Last Admin: 02/29/20 13:53 Dose: 999 mls/hr Documented by: Cefepime HCl 2 gm/ Premix 50 mls @ 100 mls/hr IV ONETIME ONE Stop: 02/29/20 13:24 Last Admin: 02/29/20 15:03 Dose: 100 mls/hr Documented by: Vancomycin HCl 2 gm/ Sodium (Chloride) 500 mls @ 250 mls/hr IV ONETIME ONE Stop: 02/29/20 15:29 Last Admin: 02/29/20 13:55 Dose: 250 mls/hr Documented by: Daptomycin 800 mg/ Sodium (Chloride) 16 mls @ 480 mls/hr IV Q24H [facility] Daptomycin 800 mg/ Sodium (Chloride) 16 mls @ 480 mls/hr IV Q24H [facility] Last Admin: 03/01/20 20:31 Dose: 480 mls/hr Documented by: Ibuprofen (Motrin) 400 mg PO Q6H PRN PRN Reason: Pain (mild 1-3) Iopamidol (Isovue Multipack-370 (76%)) 50 ml IVPUSH ONETIME STA Stop: 02/29/20 15:27 Last Admin: 02/29/20 15:26 Dose: 50 ml Documented by: Ketorolac Tromethamine (Toradol) 15 mg IVPUSH Q6H PRN PRN Reason: Pain Last Admin: 03/01/20 16:36 Dose: 15 mg Documented by: Morphine Sulfate (Morphine) 2 mg IVPUSH Q4H PRN PRN Reason: Pain Last Admin: 02/29/20 16:16 Dose: 2 mg Documented by: Oxycodone HCl (Oxycodone) 5 mg PO Q6H PRN PRN Reason: Pain Last Admin: 03/01/20 18:20 Dose: 5 mg Documented by: Sodium Chloride (Saline Flush) 10 ml FLUSH ASDIRECTED PRN PRN Reason: Keep Vein Open Last Admin: 02/29/20 12:53 Dose: 10 ml Documented by: Sodium Chloride (Saline Flush) 2.5 ml FLUSH ASDIRECTED PRN PRN Reason: Keep Vein Open Last Admin: 02/29/20 12:53 Dose: 2.5 ml Documented by: Vancomycin HCl (Pharmacy To Dose - Vancomycin) 1 dose .XX ONETIME ONE Stop: 02/29/20 12:57 Last Admin: 02/29/20 13:30 Dose: Not Given Documented by: - Exam General: Alert, Oriented Lungs: Clear to Auscultation Cardiovascular: Regular Rate, Regular Rhythm GI/Abdominal Exam: Normal Bowel Sounds, Soft, Non-Tender Extremities: Normal Range of Motion, Leg Pain, Increased Warmth Skin: Warm Neurological: No New Focal Deficit, Normal Speech, Normal Tone, Strength Equal Bilateral Sepsis Event Note - Evaluation Sepsis Screening Result: Sepsis Risk - Focused Exam Vital Signs: Vital Signs Temp Pulse Resp BP Pulse Ox 03/02/20 11:53 37.1 C 77 17 139/89 97 03/02/20 08:00 35.4 C L 72 19 145/86 H 100 03/02/20 07:25 35.4 C L 72 19 145/86 H 100 03/02/20 04:00 36.2 C 87 20 129/72 97 Date Exam was Performed: 03/02/20 Time Exam was Performed: 13:39 - Problem List & Annotations (1) Acute respiratory failure with hypoxia SNOMED Code(s): 67874274, 334609424 Code(s): J96.01 - ACUTE RESPIRATORY FAILURE WITH HYPOXIA Status: Acute Current Visit: Yes (2) Athlete's foot on left SNOMED Code(s): 9131245 Code(s): B35.3 - TINEA PEDIS Status: Acute Current Visit: Yes (3) Athlete's foot on right SNOMED Code(s): 6746422 Code(s): B35.3 - TINEA PEDIS Status: Acute Current Visit: Yes (4) Severe sepsis SNOMED Code(s): 42370333 Code(s): A41.9 - SEPSIS, UNSPECIFIED ORGANISM; R65.20 - SEVERE SEPSIS WITHOUT SEPTIC SHOCK Status: Acute Current Visit: Yes (5) Cocaine abuse SNOMED Code(s): 34446617 Code(s): F14.10 - COCAINE ABUSE, UNCOMPLICATED Status: Chronic Current Visit: Yes (6) Obesity SNOMED Code(s): 965234857, 660356162 Code(s): E66.9 - OBESITY, UNSPECIFIED Status: Chronic Current Visit: Yes (7) Cellulitis SNOMED Code(s): 156819471 Code(s): L03.90 - CELLULITIS, UNSPECIFIED Status: Acute Current Visit: No Onset Date: 12/07/14 (8) Sore throat SNOMED Code(s): 421844800 Code(s): J02.9 - ACUTE PHARYNGITIS, UNSPECIFIED Status: Acute Current Visit: Yes - Problem List Review Problem List Initiated/Reviewed/Updated: Yes - My Orders Last 24 Hours: My Active Orders 03/01/20 21:05 Ketorolac [Toradol] 30 mg IVPUSH Q6H PRN 03/01/20 21:15 Pantoprazole [ProTONIX IV] 40 mg Sodium Chloride 0.9% [Normal Saline] 10 ml IV DAILY 03/01/20 22:41 oxyCODONE 5 mg PO Q4H PRN 03/02/20 11:59 Discontinue Telemetry Monitoring [Cardiac Monitoring Discontinue] [RC] Click to Edit 03/02/20 12:14 CULTURE BLOOD [BC] Stat CULTURE BLOOD [BC] Stat Blood Culture x2 Reflex Set [OM.PC] Stat 03/02/20 21:00 DAPTOmycin [Cubicin] 1,200 mg Sodium Chloride 0.9% [Normal Saline] 24 ml IVPUSH Q24H - Plan Plan:: This 29 year old male admitted severe sepsis, cellulitis to [facility] and acute hypoxic respiratory failure 1. Severe sepsis, cellulitis LLE - Continue Cefepime and Daptomycin. - Venous Doppler to E ruled ruled out DVT - f/u on BC negative - Lactic acidosis resolved. - Tachycardia improved - on oxycodone and Toradol for pain control 2. Acute hypoxic respiratory failure - Resolved - CTA negative for PE. - No acute infection noted - ABG normal no hypercapnia. - Definitely has sleep apnea, will need follow up sleep study as outpatient. - Duonebs PRN - Oxygen therapy, wean as possible - Concern with cocaine lung. Monitor closely. -Reports sore throat continues, strep/throat culture negative, Could also be irritation from cocaine use. cont chloropeptic spray, magic mouth wash. 3. Tinea pedis - Lamisil daily to feet. 4. Cocaine abuse: - reports he has stopped x 1 week and is hoping to not restart. Counseled heavily on stopping use due to health risk including heart attack and lung infections. VTE prophylaxis: Lovenox BID Dispo: 2-3 days pending improvement
--- NOTE | 2020-03-02 15:00 | PCM.SN.2 ---
- Free Text/Narrative Note: Called by nursing as they have been unable to obtain PIV access on pt. Nursing requesting 2 large bore IV's d/t Sepsis treatment. 18g PIV to Rt FA 20g x1.87in PIV to Lt upper arm. Patient tolerated placement well. Anesthesia Time - 5631-2637
[2020-03-02] MEDS: SODIUM CHLORIDE 0.9% IVPUSH SCH (21:11)
[2020-03-02] MEDS: DAPTOMYCIN IVPUSH SCH (21:11)
[2020-03-03] MEDS: Ketorolac 30 MG/ML SDV IVPUSH PRN ×3 (02:06→21:52)
[2020-03-03] MEDS: oxyCODONE 5 MG Tab PO PRN ×2 (04:53→20:01)
[2020-03-03] MEDS: Cefepime 2 GM in Premix Bag 1 BAG IV SCH ×3 (06:23→21:54)
[2020-03-03 07:16] LABS: BLOOD UREA NITROGEN,BUN 11 mg/dL (7.0-18.0); CARBON DIOXIDE,CO2 27.1 mmol/L (21.0-32.0); CHLORIDE,CL 107 mmol/L (98-107); GLUCOSE RANDOM 96 mg/dL (74-106); POTASSIUM,K 4.2 mmol/L (3.5-5.1); SODIUM,NA 141 mmol/L (136-148)
[2020-03-03] MEDS: Lactated Ringers 1,000 ML IV SCH ×2 (08:40→20:01)
[2020-03-03] MEDS: Pantoprazole 40 MG in Sodium Chloride 0.9% 10 ML IV SCH (08:48)
[2020-03-03] MEDS: Enoxaparin 40 MG/0.4 ML Syringe SUBCUT SCH ×2 (08:51→21:53)
[2020-03-03] MEDS: TERBINAFINE 1% TOP SCH (08:53)
--- NOTE | 2020-03-03 11:40 | PCM.PN ---
- General Info Date of Service: 03/03/20 Admission Dx/Problem (Free Text): Admission Diagnosis/Problem Admission Diagnosis/Problem Severe sepsis, LLE cellulitis Subjective Update: seen at bedside, feeling more alert now. Leg pain is better, c/o cold sore and sore tongue - Review of Systems General: Reports: Weakness, Malaise. Denies: Fever, Fatigue, Chills Pulmonary: Denies: Shortness of Breath, Pleuritic Chest Pain Cardiovascular: Denies: Chest Pain, Palpitations, Dyspnea on Exertion Gastrointestinal: Denies: Abdominal Pain, Constipation Genitourinary: Denies: Dysuria, Frequency, Burning Musculoskeletal: Denies: Neck Pain, Shoulder Pain, Arm Pain Skin: Denies: Cyanosis, Jaundice, Mottled Neurological: Denies: Confusion, Dizziness, Headache - Patient Data Vitals - Most Recent: Last Vital Signs Temp 36.8 C 03/03/20 07:40 Pulse 83 03/03/20 07:40 Resp 20 03/03/20 07:40 BP 140/79 03/03/20 07:40 Pulse Ox 100 03/03/20 06:00 Weight - Most Recent: 148 kg I&O - Last 24 Hours: Intake & Output 03/02/20 03/03/20 03/03/20 22:59 06:59 14:59 Intake Total 924 2222 Output Total 1200 1350 Balance -276 872 Lab Results Last 24 Hours: Laboratory Results - last 24 hr 03/03/20 03/03/20 Range/Units 06:35 06:35 WBC 11.24 H (4.0-11.0) K/uL RBC 4.30 L (4.50-5.90) M/uL Hgb 12.2 L (13.0-17.0) g/dL Hct 40.1 (38.0-50.0) % MCV 93.3 (80.0-98.0) fL MCH 28.4 (27.0-32.0) pg MCHC 30.4 L (31.0-37.0) g/dL RDW Std Deviation 47.5 (28.0-62.0) fl RDW Coeff of Coreen 14 (11.0-15.0) % Plt Count 198 (150-400) K/uL MPV 10.10 (7.40-12.00) fL Neut % (Auto) 68.8 (48.0-80.0) % Lymph % (Auto) 17.1 (16.0-40.0) % [place] % (Auto) 9.2 (0.0-15.0) % Eos % (Auto) 4.4 (0.0-7.0) % Baso % (Auto) 0.5 (0.0-1.5) % Neut # (Auto) 7.7 H (1.4-5.7) K/uL Lymph # (Auto) 1.9 (0.6-2.4) K/uL [place] # (Auto) 1.0 H (0.0-0.8) K/uL Eos # (Auto) 0.5 (0.0-0.7) K/uL Baso # (Auto) 0.1 (0.0-0.1) K/uL Nucleated RBC % 0.0 /100WBC Nucleated RBCs # 0 K/uL Sodium 141 (136-148) mmol/L Potassium 4.2 (3.5-5.1) mmol/L Chloride 107 (98-107) mmol/L Carbon Dioxide 27.1 (21.0-32.0) mmol/L BUN 11 (7.0-18.0) mg/dL Creatinine 0.9 (0.8-1.3) mg/dL Est Cr Clr Drug Dosing 128.99 mL/min Estimated GFR (MDRD) > 60.0 ml/min Glucose 96 (74-106) mg/dL Calcium 8.3 L (8.5-10.1) mg/dL Phosphorus 4.2 (2.6-4.7) mg/dL Magnesium 2.1 (1.8-2.4) mg/dL [facility] Results Last 24 Hours: Microbiology 02/29/20 12:42 Aerobic Blood Culture - Preliminary Blood - Venous - Lab Draw Anaerobic Blood Culture - Preliminary NO GROWTH AFTER 2 DAYS 03/01/20 14:45 Quick Strep Confirmation Culture - Final Throat NO GROUP A STREP ISOLATED REFERENCE RANGE: NEGATIVE Group A Streptococcus Rapid Screen - Final NEGATIVE STREP A SCREEN REFERENCE RANGE: NEGATIVE 03/02/20 13:42 Anaerobic Blood Culture - Final Blood - Venous - Lab Draw 02/29/20 12:21 Aerobic Blood Culture - Preliminary Blood - Venous NO GROWTH AFTER 2 DAYS Anaerobic Blood Culture - Preliminary NO GROWTH AFTER 2 DAYS Med Orders - Current: Current Medications Acetaminophen (Tylenol) 650 mg PO Q4H PRN PRN Reason: Pain Last Admin: 03/02/20 19:47 Dose: 650 mg Documented by: Albuterol/Ipratropium (Duoneb 3.0-0.5 Mg/3 Ml) 3 ml NEB Q4HRRT PRN PRN Reason: Shortness Of Breath/wheezing Last Admin: 02/29/20 16:40 Dose: 3 ml Documented by: Enoxaparin Sodium (Lovenox) 40 mg SUBCUT Q12HR [facility] Last Admin: 03/03/20 08:51 Dose: 40 mg Documented by: Cefepime HCl 2 gm/ Premix 50 mls @ 100 mls/hr IV Q8H [facility] Last Admin: 03/03/20 06:23 Dose: 100 mls/hr Documented by: Pantoprazole Sodium 40 mg/ (Sodium Chloride) 10 mls @ 300 mls/hr IV DAILY [facility] Last Admin: 03/03/20 08:48 Dose: 300 mls/hr Documented by: Daptomycin 1,200 mg/ Sodium (Chloride) 24 mls @ 480 mls/hr IVPUSH Q24H [facility] Last Admin: 03/02/20 21:11 Dose: 480 mls/hr Documented by: Lactated Ringer's (Ringers, Lactated) 1,000 mls @ 100 mls/hr IV ASDIRECTED [facility] Last Admin: 03/03/20 08:40 Dose: 100 mls/hr Documented by: Ketorolac Tromethamine (Toradol) 30 mg IVPUSH Q6H PRN PRN Reason: Pain Stop: 03/06/20 21:05 Last Admin: 03/03/20 08:40 Dose: 30 mg Documented by: Lorazepam (Ativan) 1 mg IVPUSH ONETIME PRN PRN Reason: Anxiety Last Admin: 02/29/20 23:51 Dose: 1 mg Documented by: Ondansetron HCl (Zofran) 4 mg IVPUSH Q4H PRN PRN Reason: Nausea Oxycodone HCl (Oxycodone) 5 mg PO Q4H PRN PRN Reason: Pain Last Admin: 03/03/20 04:53 Dose: 5 mg Documented by: Phenol/Menthol (Chloraseptic Throat [place]) 0 ml MUCMEM Q2H PRN PRN Reason: Sore Throat Last Admin: 03/02/20 09:04 Dose: 2 spray Documented by: Sodium Chloride (Saline Flush) 2.5 ml FLUSH ASDIRECTED PRN PRN Reason: IV Use Terbinafine HCl (Lamisil At 1% Crm) 0 gm TOP DAILY [facility] Last Admin: 03/03/20 08:53 Dose: 1 applic Documented by: Discontinued Medications Acetaminophen (Tylenol) 650 mg PO NOW ONE Stop: 02/29/20 14:02 Last Admin: 02/29/20 14:22 Dose: 650 mg Documented by: Lactated Ringer's (Ringers, Lactated) 1,000 mls @ 999 mls/hr IV .BOLUS ONE Stop: 02/29/20 13:45 Last Admin: 02/29/20 12:52 Dose: 999 mls/hr Documented by: Lactated Ringer's (Ringers, Lactated) 1,000 mls @ 999 mls/hr IV .BOLUS ONE Stop: 02/29/20 13:46 Last Admin: 02/29/20 12:55 Dose: 999 mls/hr Documented by: Lactated Ringer's (Ringers, Lactated) 331 mls @ 999 mls/hr IV .BOLUS ONE Stop: 02/29/20 13:05 Last Admin: 02/29/20 13:53 Dose: 999 mls/hr Documented by: Cefepime HCl 2 gm/ Premix 50 mls @ 100 mls/hr IV ONETIME ONE Stop: 02/29/20 13:24 Last Admin: 02/29/20 15:03 Dose: 100 mls/hr Documented by: Vancomycin HCl 2 gm/ Sodium (Chloride) 500 mls @ 250 mls/hr IV ONETIME ONE Stop: 02/29/20 15:29 Last Admin: 02/29/20 13:55 Dose: 250 mls/hr Documented by: Lactated Ringer's (Ringers, Lactated) 1,000 mls @ 125 mls/hr IV Q8H [facility] Last Admin: 03/02/20 16:15 Dose: 125 mls/hr Documented by: Daptomycin 800 mg/ Sodium (Chloride) 16 mls @ 480 mls/hr IV Q24H [facility] Daptomycin 800 mg/ Sodium (Chloride) 16 mls @ 480 mls/hr IV Q24H [facility] Last Admin: 03/01/20 20:31 Dose: 480 mls/hr Documented by: Ibuprofen (Motrin) 400 mg PO Q6H PRN PRN Reason: Pain (mild 1-3) Iopamidol (Isovue Multipack-370 (76%)) 50 ml IVPUSH ONETIME STA Stop: 02/29/20 15:27 Last Admin: 02/29/20 15:26 Dose: 50 ml Documented by: Ketorolac Tromethamine (Toradol) 15 mg IVPUSH Q6H PRN PRN Reason: Pain Last Admin: 03/01/20 16:36 Dose: 15 mg Documented by: Morphine Sulfate (Morphine) 2 mg IVPUSH Q4H PRN PRN Reason: Pain Last Admin: 02/29/20 16:16 Dose: 2 mg Documented by: Oxycodone HCl (Oxycodone) 5 mg PO Q6H PRN PRN Reason: Pain Last Admin: 03/01/20 18:20 Dose: 5 mg Documented by: Sodium Chloride (Saline Flush) 10 ml FLUSH ASDIRECTED PRN PRN Reason: Keep Vein Open Last Admin: 02/29/20 12:53 Dose: 10 ml Documented by: Sodium Chloride (Saline Flush) 2.5 ml FLUSH ASDIRECTED PRN PRN Reason: Keep Vein Open Last Admin: 02/29/20 12:53 Dose: 2.5 ml Documented by: Vancomycin HCl (Pharmacy To Dose - Vancomycin) 1 dose .XX ONETIME ONE Stop: 02/29/20 12:57 Last Admin: 02/29/20 13:30 Dose: Not Given Documented by: - Exam General: Alert, Oriented Neck: Supple Lungs: Clear to Auscultation, Normal Respiratory Effort Cardiovascular: Regular Rate, Regular Rhythm GI/Abdominal Exam: Normal Bowel Sounds, Soft, Distended (obese) Extremities: Normal Range of Motion, Leg Pain, Increased Warmth, Redness (erythema ais improving). No: Non-Tender Wound/Incisions: Erythema, Erythema Improving. No: Drainage Sepsis Event Note - Evaluation Sepsis Screening Result: Sepsis Risk - Focused Exam Vital Signs: Vital Signs Temp Pulse Resp BP Pulse Ox Pulse Ox 03/03/20 07:40 36.8 C 83 20 140/79 03/03/20 06:00 100 03/03/20 04:00 36.7 C 80 18 136/64 100 03/03/20 00:05 36.9 C 86 18 145/81 H 95 Date Exam was Performed: 03/05/20 Time Exam was Performed: 14:25 - Problem List & Annotations (1) Acute respiratory failure with hypoxia SNOMED Code(s): 54530627, 229156553 Code(s): J96.01 - ACUTE RESPIRATORY FAILURE WITH HYPOXIA Status: Acute (2) Athlete's foot on left SNOMED Code(s): 3952508 Code(s): B35.3 - TINEA PEDIS Status: Acute (3) Athlete's foot on right SNOMED Code(s): 2442115 Code(s): B35.3 - TINEA PEDIS Status: Acute (4) Severe sepsis SNOMED Code(s): 68101764 Code(s): A41.9 - SEPSIS, UNSPECIFIED ORGANISM; R65.20 - SEVERE SEPSIS WITHOUT SEPTIC SHOCK Status: Acute (5) Cocaine abuse SNOMED Code(s): 78336398 Code(s): F14.10 - COCAINE ABUSE, UNCOMPLICATED Status: Chronic (6) Obesity SNOMED Code(s): 583783004, 809333105 Code(s): E66.9 - OBESITY, UNSPECIFIED Status: Chronic (7) Cellulitis SNOMED Code(s): 788280938 Code(s): L03.90 - CELLULITIS, UNSPECIFIED Status: Acute Onset Date: 12/07/14 (8) Sore throat SNOMED Code(s): 299660909 Code(s): J02.9 - ACUTE PHARYNGITIS, UNSPECIFIED Status: Acute - Problem List Review Problem List Initiated/Reviewed/Updated: Yes - My Orders Last 24 Hours: My Active Orders 03/02/20 11:59 Discontinue Telemetry Monitoring [Cardiac Monitoring Discontinue] [RC] Click to Edit 03/02/20 12:14 Blood Culture x2 Reflex Set [OM.PC] Stat 03/02/20 13:42 CULTURE BLOOD [BC] Stat CULTURE BLOOD [BC] Stat 03/02/20 14:12 Consult to Physician [CONS] Stat 03/02/20 14:14 Notify Provider Consults [RC] ASDIRECTED 03/02/20 16:30 Lactated Ringers [Ringers, Lactated] 1,000 ml IV ASDIRECTED 03/02/20 21:00 DAPTOmycin [Cubicin] 1,200 mg Sodium Chloride 0.9% [Normal Saline] 24 ml IVPUSH Q24H - Plan Plan:: This 29 year old male admitted severe sepsis, cellulitis to [facility] and acute hypoxic respiratory failure 1. Severe sepsis, cellulitis LLE - Continue Cefepime and Daptomycin. - Venous Doppler to LLE ruled ruled out DVT - BC negative results noted - Lactic acidosis resolved. - Tachycardia improved - on oxycodone and Toradol for pain control 2. Acute hypoxic respiratory failure - Resolved - CTA negative for PE. - No acute infection noted - ABG normal no hypercapnia. - Definitely has sleep apnea, will need follow up sleep study as outpatient. - Duonebs PRN - Oxygen therapy, wean as possible - Concern with cocaine lung. Monitor closely. -Reports sore throat continues, strep/throat culture negative, Could also be irritation from cocaine use. cont chloropeptic spray, magic mouth wash. 3. Tinea pedis - Lamisil daily to feet. 4. Cocaine abuse: - reports he has stopped x 1 week and is hoping to not restart. Counseled heavily on stopping use due to health risk including heart attack and lung infections. 5. Herpes labialis: Will start topical acyclovir, VTE prophylaxis: Lovenox BID Dispo: 2-3 days pending improvement
[2020-03-03] MEDS: Diphenhydramine/Lidocaine/Nystatin Suspension 237 ML Bottle PO SCH ×3 (13:12→23:07)
[2020-03-03] MEDS ORDERED: ACYCLOVIR 5% TOP SCH (15:12)
[2020-03-03] MEDS: Acyclovir 200 MG Cap PO SCH ×2 (17:09→21:54)
[2020-03-03] MEDS: SODIUM CHLORIDE 0.9% IVPUSH SCH (21:44)
[2020-03-03] MEDS: DAPTOMYCIN IVPUSH SCH (21:44)
[2020-03-04] MEDS: oxyCODONE 5 MG Tab PO PRN (05:01)
[2020-03-04] MEDS: Acyclovir 200 MG Cap PO SCH ×3 (05:01→20:59)
[2020-03-04] MEDS: Cefepime 2 GM in Premix Bag 1 BAG IV SCH ×3 (05:02→20:59)
[2020-03-04] MEDS: Diphenhydramine/Lidocaine/Nystatin Suspension 237 ML Bottle PO SCH ×4 (05:07→23:14)
[2020-03-04 06:14] LABS: BLOOD UREA NITROGEN,BUN 7 mg/dL (7.0-18.0); CARBON DIOXIDE,CO2 26.5 mmol/L (21.0-32.0); CHLORIDE,CL 105 mmol/L (98-107); GLUCOSE RANDOM 100 mg/dL (74-106); SODIUM,NA 141 mmol/L (136-148)
[2020-03-04] MEDS: Lactated Ringers 1,000 ML IV SCH ×2 (07:54→18:34)
[2020-03-04] MEDS: Pantoprazole 40 MG in Sodium Chloride 0.9% 10 ML IV SCH (08:03)
[2020-03-04] MEDS: Enoxaparin 40 MG/0.4 ML Syringe SUBCUT SCH ×2 (08:06→20:58)
[2020-03-04] MEDS: TERBINAFINE 1% TOP SCH (08:15)
--- NOTE | 2020-03-04 09:35 | PCM.PN ---
- General Info Date of Service: 03/04/20 - Review of Systems Systems Review Comment:: feeling better, resting comfortably - Patient Data Vitals - Most Recent: Last Vital Signs Temp 36.7 C 03/04/20 07:57 Pulse 87 03/04/20 07:57 Resp 32 H 03/04/20 07:57 BP 149/92 H 03/04/20 07:57 Pulse Ox 97 03/04/20 07:57 Weight - Most Recent: 148 kg I&O - Last 24 Hours: Intake & Output 03/03/20 03/04/20 03/04/20 22:59 06:59 14:59 Intake Total 1000 3111 Output Total 1650 650 Balance -650 2461 Lab Results Last 24 Hours: Laboratory Results - last 24 hr 03/04/20 03/04/20 Range/Units 05:35 05:35 WBC 10.11 (4.0-11.0) K/uL RBC 4.48 L (4.50-5.90) M/uL Hgb 13.0 (13.0-17.0) g/dL Hct 40.9 (38.0-50.0) % MCV 91.3 (80.0-98.0) fL MCH 29.0 (27.0-32.0) pg MCHC 31.8 (31.0-37.0) g/dL RDW Std Deviation 45.3 (28.0-62.0) fl RDW Coeff of Coreen 14 (11.0-15.0) % Plt Count 241 (150-400) K/uL MPV 10.20 (7.40-12.00) fL Neut % (Auto) 64.6 (48.0-80.0) % Lymph % (Auto) 18.9 (16.0-40.0) % [place] % (Auto) 9.4 (0.0-15.0) % Eos % (Auto) 6.6 (0.0-7.0) % Baso % (Auto) 0.5 (0.0-1.5) % Neut # (Auto) 6.5 H (1.4-5.7) K/uL Lymph # (Auto) 1.9 (0.6-2.4) K/uL [place] # (Auto) 1.0 H (0.0-0.8) K/uL Eos # (Auto) 0.7 (0.0-0.7) K/uL Baso # (Auto) 0.1 (0.0-0.1) K/uL Nucleated RBC % 0.0 /100WBC Nucleated RBCs # 0 K/uL Sodium 141 (136-148) mmol/L Potassium 4.0 (3.5-5.1) mmol/L Chloride 105 (98-107) mmol/L Carbon Dioxide 26.5 (21.0-32.0) mmol/L BUN 7 (7.0-18.0) mg/dL Creatinine 0.9 (0.8-1.3) mg/dL Est Cr Clr Drug Dosing 128.99 mL/min Estimated GFR (MDRD) > 60.0 ml/min Glucose 100 (74-106) mg/dL Calcium 8.7 (8.5-10.1) mg/dL Phosphorus 4.1 (2.6-4.7) mg/dL Magnesium 2.1 (1.8-2.4) mg/dL [facility] Results Last 24 Hours: Microbiology 02/29/20 12:42 Aerobic Blood Culture - Preliminary Blood - Venous - Lab Draw Anaerobic Blood Culture - Preliminary NO GROWTH AFTER 3 DAYS 02/29/20 12:21 Aerobic Blood Culture - Preliminary Blood - Venous NO GROWTH AFTER 3 DAYS Anaerobic Blood Culture - Preliminary NO GROWTH AFTER 3 DAYS 03/02/20 13:42 Aerobic Blood Culture - Preliminary Blood - Venous - Lab Draw NO GROWTH AFTER 1 DAY Anaerobic Blood Culture - Final 03/02/20 13:42 Aerobic Blood Culture - Preliminary Blood - Venous NO GROWTH AFTER 1 DAY Anaerobic Blood Culture - Preliminary NO GROWTH AFTER 1 DAY 03/01/20 14:45 Quick Strep Confirmation Culture - Final Throat NO GROUP A STREP ISOLATED REFERENCE RANGE: NEGATIVE Group A Streptococcus Rapid Screen - Final NEGATIVE STREP A SCREEN REFERENCE RANGE: NEGATIVE Med Orders - Current: Current Medications Acetaminophen (Tylenol) 650 mg PO Q4H PRN PRN Reason: Pain Last Admin: 03/02/20 19:47 Dose: 650 mg Documented by: Acyclovir (Zovirax) 400 mg PO TID MARCIA Last Admin: 03/04/20 05:01 Dose: 400 mg Documented by: Albuterol/Ipratropium (Duoneb 3.0-0.5 Mg/3 Ml) 3 ml NEB Q4HRRT PRN PRN Reason: Shortness Of Breath/wheezing Last Admin: 02/29/20 16:40 Dose: 3 ml Documented by: Diphenhydramine/Nystatin/Lidocaine (Magic Mouthwash) 30 ml PO QID [facility] Last Admin: 03/04/20 05:07 Dose: 30 ml Documented by: Enoxaparin Sodium (Lovenox) 40 mg SUBCUT Q12HR [facility] Last Admin: 03/04/20 08:06 Dose: 40 mg Documented by: Cefepime HCl 2 gm/ Premix 50 mls @ 100 mls/hr IV Q8H [facility] Last Admin: 03/04/20 05:02 Dose: 100 mls/hr Documented by: Pantoprazole Sodium 40 mg/ (Sodium Chloride) 10 mls @ 300 mls/hr IV DAILY [facility] Last Admin: 03/04/20 08:03 Dose: 300 mls/hr Documented by: Daptomycin 1,200 mg/ Sodium (Chloride) 24 mls @ 480 mls/hr IVPUSH Q24H [facility] Last Admin: 03/03/20 21:44 Dose: 480 mls/hr Documented by: Lactated Ringer's (Ringers, Lactated) 1,000 mls @ 100 mls/hr IV ASDIRECTED [facility] Last Admin: 03/04/20 07:54 Dose: 100 mls/hr Documented by: Ketorolac Tromethamine (Toradol) 30 mg IVPUSH Q6H PRN PRN Reason: Pain Stop: 03/06/20 21:05 Last Admin: 03/03/20 21:52 Dose: 30 mg Documented by: Lorazepam (Ativan) 1 mg IVPUSH ONETIME PRN PRN Reason: Anxiety Last Admin: 02/29/20 23:51 Dose: 1 mg Documented by: Ondansetron HCl (Zofran) 4 mg IVPUSH Q4H PRN PRN Reason: Nausea Oxycodone HCl (Oxycodone) 5 mg PO Q4H PRN PRN Reason: Pain Last Admin: 03/04/20 05:01 Dose: 5 mg Documented by: Phenol/Menthol (Chloraseptic Throat [place]) 0 ml MUCMEM Q2H PRN PRN Reason: Sore Throat Last Admin: 03/02/20 09:04 Dose: 2 spray Documented by: Sodium Chloride (Saline Flush) 2.5 ml FLUSH ASDIRECTED PRN PRN Reason: IV Use Terbinafine HCl (Lamisil At 1% Crm) 0 gm TOP DAILY [facility] Last Admin: 03/04/20 08:15 Dose: 1 applic Documented by: Discontinued Medications Acetaminophen (Tylenol) 650 mg PO NOW ONE Stop: 02/29/20 14:02 Last Admin: 02/29/20 14:22 Dose: 650 mg Documented by: Lactated Ringer's (Ringers, Lactated) 1,000 mls @ 999 mls/hr IV .BOLUS ONE Stop: 02/29/20 13:45 Last Admin: 02/29/20 12:52 Dose: 999 mls/hr Documented by: Lactated Ringer's (Ringers, Lactated) 1,000 mls @ 999 mls/hr IV .BOLUS ONE Stop: 02/29/20 13:46 Last Admin: 02/29/20 12:55 Dose: 999 mls/hr Documented by: Lactated Ringer's (Ringers, Lactated) 331 mls @ 999 mls/hr IV .BOLUS ONE Stop: 02/29/20 13:05 Last Admin: 02/29/20 13:53 Dose: 999 mls/hr Documented by: Cefepime HCl 2 gm/ Premix 50 mls @ 100 mls/hr IV ONETIME ONE Stop: 02/29/20 13:24 Last Admin: 02/29/20 15:03 Dose: 100 mls/hr Documented by: Vancomycin HCl 2 gm/ Sodium (Chloride) 500 mls @ 250 mls/hr IV ONETIME ONE Stop: 02/29/20 15:29 Last Admin: 02/29/20 13:55 Dose: 250 mls/hr Documented by: Lactated Ringer's (Ringers, Lactated) 1,000 mls @ 125 mls/hr IV Q8H [facility] Last Admin: 03/02/20 16:15 Dose: 125 mls/hr Documented by: Daptomycin 800 mg/ Sodium (Chloride) 16 mls @ 480 mls/hr IV Q24H [facility] Daptomycin 800 mg/ Sodium (Chloride) 16 mls @ 480 mls/hr IV Q24H [facility] Last Admin: 03/01/20 20:31 Dose: 480 mls/hr Documented by: Ibuprofen (Motrin) 400 mg PO Q6H PRN PRN Reason: Pain (mild 1-3) Iopamidol (Isovue Multipack-370 (76%)) 50 ml IVPUSH ONETIME STA Stop: 02/29/20 15:27 Last Admin: 02/29/20 15:26 Dose: 50 ml Documented by: Ketorolac Tromethamine (Toradol) 15 mg IVPUSH Q6H PRN PRN Reason: Pain Last Admin: 03/01/20 16:36 Dose: 15 mg Documented by: Morphine Sulfate (Morphine) 2 mg IVPUSH Q4H PRN PRN Reason: Pain Last Admin: 02/29/20 16:16 Dose: 2 mg Documented by: Oxycodone HCl (Oxycodone) 5 mg PO Q6H PRN PRN Reason: Pain Last Admin: 03/01/20 18:20 Dose: 5 mg Documented by: Sodium Chloride (Saline Flush) 10 ml FLUSH ASDIRECTED PRN PRN Reason: Keep Vein Open Last Admin: 02/29/20 12:53 Dose: 10 ml Documented by: Sodium Chloride (Saline Flush) 2.5 ml FLUSH ASDIRECTED PRN PRN Reason: Keep Vein Open Last Admin: 02/29/20 12:53 Dose: 2.5 ml Documented by: Vancomycin HCl (Pharmacy To Dose - Vancomycin) 1 dose .XX ONETIME ONE Stop: 02/29/20 12:57 Last Admin: 02/29/20 13:30 Dose: Not Given Documented by: - Exam General: Alert, Oriented Neck: Supple Lungs: Clear to Auscultation, Normal Respiratory Effort Cardiovascular: Regular Rate, Regular Rhythm GI/Abdominal Exam: Soft Extremities: Other (erythema surronding left calf) Neurological: No New Focal Deficit Sepsis Event Note - Evaluation Sepsis Screening Result: No Definite Risk - Focused Exam Vital Signs: Vital Signs Temp Pulse Resp BP BP Pulse Ox 03/04/20 07:57 36.7 C 87 32 H 149/92 H 97 03/04/20 04:50 36.5 C 88 19 149/81 H 93 L 03/03/20 23:27 36.1 C 99 18 146/77 H 95 Date Exam was Performed: 03/04/20 Time Exam was Performed: 09:33 - Problem List Review Problem List Initiated/Reviewed/Updated: Yes - My Orders Last 24 Hours: My Active Orders 03/05/20 05:11 BASIC METABOLIC PANEL,BMP [CHEM] AM CBC WITH AUTO DIFF [HEME] AM - Plan Plan:: This 29 year old male admitted severe sepsis, cellulitis to E and acute hypoxic respiratory failure 1. Severe sepsis, cellulitis LLE - Continue Cefepime and Daptomycin. - Venous Doppler to E ruled ruled out DVT - / BC growing coag negative staph - on oxycodone and Toradol for pain control 2. Acute hypoxic respiratory failure - Resolved -refused BIPAP and pulse oximter last nigt 3. Tinea pedis - Lamisil daily to feet. 4. Cocaine abuse: - reports he has stopped x 1 week and is hoping to not restart. Counseled heavily on stopping use due to health risk including heart attack and lung infections. 5. Herpes labialis: continue topical acyclovir, VTE prophylaxis: Lovenox BID Dispo: 2-3 days pending improvement
[2020-03-04] MEDS: SODIUM CHLORIDE 0.9% IVPUSH SCH (20:58)
[2020-03-04] MEDS: DAPTOMYCIN IVPUSH SCH (20:58)
[2020-03-04] MEDS: Ketorolac 30 MG/ML SDV IVPUSH PRN (23:11)
[2020-03-05] MEDS: Acyclovir 200 MG Cap PO SCH (05:36)
[2020-03-05] MEDS: Cefepime 2 GM in Premix Bag 1 BAG IV SCH (05:36)
[2020-03-05] MEDS: Diphenhydramine/Lidocaine/Nystatin Suspension 237 ML Bottle PO SCH (05:36)
[2020-03-05] MEDS: Lactated Ringers 1,000 ML IV SCH (05:43)
[2020-03-05 06:42] LABS: BLOOD UREA NITROGEN,BUN 9 mg/dL (7.0-18.0); CARBON DIOXIDE,CO2 26.6 mmol/L (21.0-32.0); CHLORIDE,CL 106 mmol/L (98-107); GLUCOSE RANDOM 99 mg/dL (74-106); POTASSIUM,K 4.3 mmol/L (3.5-5.1); SODIUM,NA 142 mmol/L (136-148)
--- NOTE | 2020-03-05 08:44 | PCM.DCSUM1 ---
Discharge Summary - Discharge Data Discharge Date: 03/05/20 Discharge Disposition: Home, Self-Care 01 Condition: Fair - Referral to Home Health Primary Care Physician: Dell Glover - Patient Summary/Data Consults: Consultations 03/02/20 14:12 Consult to Physician [CONS] Stat Hospital Course: 29 year old male with pmh of cellulitis with sepsis, obesity, and cocaine use presents to the ED with complaints of fevers, red leg and pain. In the ED significant leukocytosis noted at 23,110, lactic acid elevated at 2.6. CMP otherwise normal. COVID negative. He was noted to be hypoxic, tachycardia and febrile in the ED. He was given Vancomycin and Cefepime in the ED along with 3 L LR. Lactic improved to 2.1 with fluids. BP remained stable, no hypotension noted. CXR negative. CTA obtained which did note find PE and lungs appear clear, no acute findings. he was admitted for sepsis secondary to cellulitis of LLE and acute hypoxic respiratory failure. He was treated with daptomycin and cefepime with improvement in his leg pain and erythema. His hypoxia did resolve and it was felt that he likely did have sleep apnea. 1/ blood cultures grew out coag negative staph. His fever and leukocytosis resolved and today he is requesting discharge home. He was discharged home with five more days of Bactrim. He is to follow up with Elena Shetty. - Discharge Plan *PRESCRIPTION DRUG MONITORING PROGRAM REVIEWED*: Not Applicable *COPY OF PRESCRIPTION DRUG MONITORING REPORT IN PATIENT STACIA: Not Applicable Prescriptions/Med Rec: Sulfamethoxazole/Trimethoprim [Bactrim Ds Tablet] 1 each PO BID #10 tablet Home Medications: Home Meds Sulfamethoxazole/Trimethoprim [Bactrim Ds Tablet] 1 each PO BID #10 tablet 03/05/20 [Rx] Referrals: Elena Shetty NP [Nurse Practitioner] - 03/13/20 11:00 am (Please bring your own face mask to your follow up appointment.) - Discharge Summary/Plan Comment DC Time >30 min.: No - Patient Data Vitals - Most Recent: Last Vital Signs Temp 36.7 C 03/04/20 23:07 Pulse 98 03/04/20 23:07 Resp 20 03/04/20 23:07 BP 169/82 H 03/04/20 23:07 Pulse Ox 95 03/04/20 23:07 Weight - Most Recent: 148 kg I&O - Last 24 hours: Intake & Output 03/04/20 03/05/20 03/05/20 22:59 06:59 14:59 Intake Total 1210 2865 Balance 1210 2865 Lab Results - Last 24 hrs: Laboratory Results - last 24 hr 03/05/20 03/05/20 Range/Units 06:12 06:12 WBC 10.66 (4.0-11.0) K/uL RBC 4.70 (4.50-5.90) M/uL Hgb 13.7 (13.0-17.0) g/dL Hct 42.8 (38.0-50.0) % MCV 91.1 (80.0-98.0) fL MCH 29.1 (27.0-32.0) pg MCHC 32.0 (31.0-37.0) g/dL RDW Std Deviation 44.3 (28.0-62.0) fl RDW Coeff of Coreen 13 (11.0-15.0) % Plt Count 236 (150-400) K/uL MPV 9.70 (7.40-12.00) fL Add Manual Diff YES Neutrophils % (Manual) 66 (48.0-80.0) % Band Neutrophils % 3 % Lymphocytes % (Manual) 21 (16.0-40.0) % Monocytes % (Manual) 6 (0.0-15.0) % Eosinophils % (Manual) 3 (0.0-7.0) % Basophils % (Manual) 1 (0.0-1.5) % Nucleated RBC % 0.0 /100WBC Absolute Seg Neuts 7.0 H (1.4-5.7) Band Neutrophils # 0.3 Lymphocytes # (Manual) 2.2 (0.6-2.4) Monocytes # (Manual) 0.6 (0.0-0.8) Eosinophils # (Manual) 0.3 (0.0-0.7) Basophils # (Manual) 0.1 (0.0-0.1) Nucleated RBCs # 0 K/uL Sodium 142 (136-148) mmol/L Potassium 4.3 (3.5-5.1) mmol/L Chloride 106 (98-107) mmol/L Carbon Dioxide 26.6 (21.0-32.0) mmol/L BUN 9 (7.0-18.0) mg/dL Creatinine 0.8 (0.8-1.3) mg/dL Est Cr Clr Drug Dosing 145.11 mL/min Estimated GFR (MDRD) > 60.0 ml/min Glucose 99 (74-106) mg/dL Calcium 8.5 (8.5-10.1) mg/dL [facility] Results - Last 24 hrs: Microbiology 02/29/20 12:42 Aerobic Blood Culture - Final Blood - Venous - Lab Draw Staphylococcus Coagulase Neg Anaerobic Blood Culture - Preliminary NO GROWTH AFTER 4 DAYS 03/02/20 13:42 Aerobic Blood Culture - Preliminary Blood - Venous - Lab Draw NO GROWTH AFTER 2 DAYS Anaerobic Blood Culture - Final 03/02/20 13:42 Aerobic Blood Culture - Preliminary Blood - Venous NO GROWTH AFTER 2 DAYS Anaerobic Blood Culture - Preliminary NO GROWTH AFTER 2 DAYS 02/29/20 12:21 Aerobic Blood Culture - Preliminary Blood - Venous NO GROWTH AFTER 4 DAYS Anaerobic Blood Culture - Preliminary NO GROWTH AFTER 4 DAYS Med Orders - Current: Current Medications Acetaminophen (Tylenol) 650 mg PO Q4H PRN PRN Reason: Pain Last Admin: 03/02/20 19:47 Dose: 650 mg Documented by: Acyclovir (Zovirax) 400 mg PO TID [facility] Last Admin: 03/05/20 05:36 Dose: 400 mg Documented by: Albuterol/Ipratropium (Duoneb 3.0-0.5 Mg/3 Ml) 3 ml NEB Q4HRRT PRN PRN Reason: Shortness Of Breath/wheezing Last Admin: 02/29/20 16:40 Dose: 3 ml Documented by: Diphenhydramine/Nystatin/Lidocaine (Magic Mouthwash) 30 ml PO QID [facility] Last Admin: 03/05/20 05:36 Dose: Not Given Documented by: Enoxaparin Sodium (Lovenox) 40 mg SUBCUT Q12HR [facility] Last Admin: 03/04/20 20:58 Dose: 40 mg Documented by: Cefepime HCl 2 gm/ Premix 50 mls @ 100 mls/hr IV Q8H [facility] Last Admin: 03/05/20 05:36 Dose: 100 mls/hr Documented by: Pantoprazole Sodium 40 mg/ (Sodium Chloride) 10 mls @ 300 mls/hr IV DAILY [facility] Last Admin: 03/04/20 08:03 Dose: 300 mls/hr Documented by: Daptomycin 1,200 mg/ Sodium (Chloride) 24 mls @ 480 mls/hr IVPUSH Q24H [facility] Last Admin: 03/04/20 20:58 Dose: 480 mls/hr Documented by: Lactated Ringer's (Ringers, Lactated) 1,000 mls @ 100 mls/hr IV ASDIRECTED [facility] Last Admin: 03/05/20 05:43 Dose: 100 mls/hr Documented by: Ketorolac Tromethamine (Toradol) 30 mg IVPUSH Q6H PRN PRN Reason: Pain Stop: 03/06/20 21:05 Last Admin: 03/04/20 23:11 Dose: 30 mg Documented by: Lorazepam (Ativan) 1 mg IVPUSH ONETIME PRN PRN Reason: Anxiety Last Admin: 02/29/20 23:51 Dose: 1 mg Documented by: Ondansetron HCl (Zofran) 4 mg IVPUSH Q4H PRN PRN Reason: Nausea Oxycodone HCl (Oxycodone) 5 mg PO Q4H PRN PRN Reason: Pain Last Admin: 03/04/20 05:01 Dose: 5 mg Documented by: Phenol/Menthol (Chloraseptic Throat [place]) 0 ml MUCMEM Q2H PRN PRN Reason: Sore Throat Last Admin: 03/02/20 09:04 Dose: 2 spray Documented by: Sodium Chloride (Saline Flush) 2.5 ml FLUSH ASDIRECTED PRN PRN Reason: IV Use Terbinafine HCl (Lamisil At 1% Crm) 0 gm TOP DAILY [facility] Last Admin: 03/04/20 08:15 Dose: 1 applic Documented by: Discontinued Medications Acetaminophen (Tylenol) 650 mg PO NOW ONE Stop: 02/29/20 14:02 Last Admin: 02/29/20 14:22 Dose: 650 mg Documented by: Lactated Ringer's (Ringers, Lactated) 1,000 mls @ 999 mls/hr IV .BOLUS ONE Stop: 02/29/20 13:45 Last Admin: 02/29/20 12:52 Dose: 999 mls/hr Documented by: Lactated Ringer's (Ringers, Lactated) 1,000 mls @ 999 mls/hr IV .BOLUS ONE Stop: 02/29/20 13:46 Last Admin: 02/29/20 12:55 Dose: 999 mls/hr Documented by: Lactated Ringer's (Ringers, Lactated) 331 mls @ 999 mls/hr IV .BOLUS ONE Stop: 02/29/20 13:05 Last Admin: 02/29/20 13:53 Dose: 999 mls/hr Documented by: Cefepime HCl 2 gm/ Premix 50 mls @ 100 mls/hr IV ONETIME ONE Stop: 02/29/20 13:24 Last Admin: 02/29/20 15:03 Dose: 100 mls/hr Documented by: Vancomycin HCl 2 gm/ Sodium (Chloride) 500 mls @ 250 mls/hr IV ONETIME ONE Stop: 02/29/20 15:29 Last Admin: 02/29/20 13:55 Dose: 250 mls/hr Documented by: Lactated Ringer's (Ringers, Lactated) 1,000 mls @ 125 mls/hr IV Q8H [facility] Last Admin: 03/02/20 16:15 Dose: 125 mls/hr Documented by: Daptomycin 800 mg/ Sodium (Chloride) 16 mls @ 480 mls/hr IV Q24H [facility] Daptomycin 800 mg/ Sodium (Chloride) 16 mls @ 480 mls/hr IV Q24H [facility] Last Admin: 03/01/20 20:31 Dose: 480 mls/hr Documented by: Ibuprofen (Motrin) 400 mg PO Q6H PRN PRN Reason: Pain (mild 1-3) Iopamidol (Isovue Multipack-370 (76%)) 50 ml IVPUSH ONETIME STA Stop: 02/29/20 15:27 Last Admin: 02/29/20 15:26 Dose: 50 ml Documented by: Ketorolac Tromethamine (Toradol) 15 mg IVPUSH Q6H PRN PRN Reason: Pain Last Admin: 03/01/20 16:36 Dose: 15 mg Documented by: Morphine Sulfate (Morphine) 2 mg IVPUSH Q4H PRN PRN Reason: Pain Last Admin: 02/29/20 16:16 Dose: 2 mg Documented by: Oxycodone HCl (Oxycodone) 5 mg PO Q6H PRN PRN Reason: Pain Last Admin: 03/01/20 18:20 Dose: 5 mg Documented by: Sodium Chloride (Saline Flush) 10 ml FLUSH ASDIRECTED PRN PRN Reason: Keep Vein Open Last Admin: 02/29/20 12:53 Dose: 10 ml Documented by: Sodium Chloride (Saline Flush) 2.5 ml FLUSH ASDIRECTED PRN PRN Reason: Keep Vein Open Last Admin: 02/29/20 12:53 Dose: 2.5 ml Documented by: Vancomycin HCl (Pharmacy To Dose - Vancomycin) 1 dose .XX ONETIME ONE Stop: 02/29/20 12:57 Last Admin: 02/29/20 13:30 Dose: Not Given Documented by:
[2020-03-05] MEDS: Enoxaparin 40 MG/0.4 ML Syringe SUBCUT SCH (10:24)
[2020-03-05] MEDS: TERBINAFINE 1% TOP SCH (10:24)
[2020-03-05] MEDS: Pantoprazole 40 MG in Sodium Chloride 0.9% 10 ML IV SCH (10:24)
[2020-03-05 10:26] VITALS: BP 100/77; PULSE 84
[2020-03-05] MEDS ORDERED: Sulfamethoxazole/Trimethoprim 800-160 MG Tab PO ONE (11:40)
--- NOTE | 2020-03-07 14:53 | ECHO ---
EXAM DATE: 02/29/20 PATIENT'S AGE: 29 The ECHO report has been scanned into [employer] and can be seen in this patient's EMR (Electronic Medical Record) under the REPORTS section. The report has also been scanned into PACS. MELVIN
== END 2020-03-05 13:00 | disposition home or self-care (01) | DRG 871 ==
LOC: MW.ED 12:14 → MW.MS 14:29
PROVIDERS: ADMIT Student in an Organized Health Care Education/Training Program; ATTEND Student in an Organized Health Care Education/Training Program
DX: A41.9 Sepsis, unspecified organism (principal); J96.01 Acute respiratory failure with hypoxia; L03.116 Cellulitis of left lower limb; Z68.42 Body mass index [BMI] 45.0-49.9, adult; R65.20 Severe sepsis without septic shock; E66.9 Obesity, unspecified; Z20.828 Contact with and (suspected) exposure to other viral communicable diseases; F14.10 Cocaine abuse, uncomplicated; B35.3 Tinea pedis; B00.1 Herpesviral vesicular dermatitis; J02.9 Acute pharyngitis, unspecified; K21.9 Gastro-esophageal reflux disease without esophagitis; E03.9 Hypothyroidism, unspecified; Z88.5 Allergy status to narcotic agent; Z90.49 Acquired absence of other specified parts of digestive tract
CPT/HCPCS: 36410; 36415; 36600; 70450; 70450-26; 71045; 71045-26; 71275; 71275-26; 80048; 80053; 80305-QW; 81001; 82803; 83605; 83735; 84100; 84484; 85025; 87040; 87077; 87081; 87186; 87880-QW; 93005; 93306; 93971-26-LT; 93971-LT; 94640; 94660; 96361; 96374; 99285-25; 99291; A9270-GY; C9113; J0692; J0878; J1650; J1885; J2060; J2270; J3370; J7040; J7050; J7120; J7620-GY; Q9967; U0002

== ENCOUNTER 2020-03-07 17:00 | Observation (INO) | payer OTHER ==
[2020-03-07] MEDS ORDERED: Sodium Chloride 0.9% 10 ML Syringe FLUSH PRN (17:06)
[2020-03-07] MEDS ORDERED: Sodium Chloride 0.9% 1,000 ML IV ONE (17:06)
[2020-03-07] MEDS ORDERED: Sodium Chloride 0.9% 2.5 ML Syringe FLUSH PRN (17:06)
[2020-03-07] MEDS ORDERED: Vancomycin 2 GM in Dextrose 5% in Water 250 ML IV ONE ×2 (17:06)
[2020-03-07] MEDS ORDERED: cefTRIAXone 1 GM in Sodium Chloride 0.9% 100 ML IV ONE (17:06)
--- NOTE | 2020-03-07 17:11 | EDM.PDOC ---
ED HPI GENERAL MEDICAL PROBLEM - General Chief Complaint: Skin Complaint Time Seen by Provider: 03/07/20 17:05 - History of Present Illness INITIAL COMMENTS - FREE TEXT/NARRATIVE: History of present illness: 29-year-old male brought by EMS, presenting with decreased mental status and sepsis. Apparently the patient was recently admitted to the hospital for left lower extremity cellulitis/sepsis. Apparently a friend found him unresponsive in his home today. When EMS arrived he was alert and oriented, but he did have episodes of decreased mental status. Patient is tachycardic on arrival here and hypoxic, 86%. Oxygen was administered immediately. Review of systems: As per history of present illness and below otherwise all systems reviewed and negative. Past medical history: As per history of present illness and as reviewed below otherwise noncontributory. Sleep apnea Surgical history: As per history of present illness and as reviewed below otherwise noncontributory. Social history: Cocaine abuse, daily tobacco Family history: As per history of present illness and as reviewed below otherwise noncontributory. Physical exam: GEN: Mild distress, somewhat appearing, intermittent decreased mental status and diaphoresis HEENT: Atraumatic, normocephalic, mucous membranes moist, Neck: supple, nontender, trachea midline. Lungs: No respiratory distress. Heart: Tachycardic Abdomen: Soft, nondistended, nontender. Back: nontender Extremities: Lower extremity erythema, warmth to touch and tenderness. Neurovascularly intact. Neuro: Dominantly awake, alert, and oriented, however patient occasionally does seem to almost fall asleep and then awaken again. Neuro Exam nonfocal. Skin: warm, dry, vesicular rash, left lower lip Diagnostics: Labs, x-ray, ultrasound left lower extremity, EKG, blood cultures Therapeutics: IV fluids, ceftriaxone, vancomycin MDM: Impression: [] Plan: [] Definitive disposition and diagnosis as appropriate pending reevaluation and review of above. - Related Data Allergies Allergy/AdvReac Type Severity Reaction Status Date / Time hydrocodone bitartrate Allergy Swollen Verified 03/07/20 17:19 [From Vicodin] Tongue Home Meds: Home Meds Sulfamethoxazole/Trimethoprim [Bactrim Ds Tablet] 1 each PO BID #10 tablet 03/05/20 [Rx] Past Medical History - Past Health History Medical/Surgical History: Denies Medical/Surgical History HEENT History: Reports: Other (See Below) Other HEENT History: wears glasses Cardiovascular History: Reports: None. Denies: High Cholesterol, Hypertension Other Cardiovascular History: will be checked by Dr. Bebeto Allison before -The patient told me that he saw Dr. Allison and he was cleared for surgery. Respiratory History: Reports: None. Denies: Asthma, COPD Gastrointestinal History: Reports: GERD Genitourinary History: Reports: None. Denies: Acute Renal Failure Musculoskeletal History: Reports: Fracture Other Musculoskeletal History: left arm and left thumb Neurological History: Reports: None. Denies: CVA, TIA Psychiatric History: Reports: Addiction Endocrine/Metabolic History: Reports: Hypothyroidism, Obesity/BMI 30+ Hematologic History: Reports: None Immunologic History: Reports: None Oncologic (Cancer) History: Reports: None Dermatologic History: Reports: Cellulitis - Infectious Disease History Infectious Disease History: Reports: None - Past Surgical History Head Surgeries/Procedures: Reports: None HEENT Surgical History: Reports: None Cardiovascular Surgical History: Reports: None Respiratory Surgical History: Reports: None GI Surgical History: Reports: Appendectomy Male Surgical History: Reports: None Endocrine Surgical History: Reports: None Neurological Surgical History: Reports: None Musculoskeletal Surgical History: Reports: ORIF, Other (See Below) Other Musculoskeletal Surgeries/Procedures:: left arm surgery with plate and screws right sciatic pain Oncologic Surgical History: Reports: None Dermatological Surgical History: Reports: None - History Comment History Comment: etoh "1x a week". Social & Family History - Family History Family Medical History: Noncontributory Cardiac: Reports: [place] Psychiatric: Reports: Anxiety, Depression - Caffeine Use Caffeine Use: Reports: None ED ROS GENERAL - Review of Systems Review Of Systems: See Below (See HPI) ED EXAM, SKIN/RASH Exam: See Below (See HPI) EKG INTERPRETATION EKG Interpretation Comments: EKG performed today at 5:26 PM, sinus, rate 99, no acute ischemia, no STEMI. Interpreted by me. Course - Vital Signs Text/Narrative:: Patient meets sepsis criteria, therefore sepsis order set was utilized, broad- spectrum antibiotics were given. Suspected source is left lower extremity cellulitis, ceftriaxone and vancomycin were given. Apparently the patient has been on outpatient Bactrim. Patient hypoxic and slightly intermittently lethargic here, ABG was performed which does show mildly low PO2, PCO2 not elevated.. He does have a somewhat waxing and waning mental status, occasionally he will fall asleep, and at other times he wakes up and yells at the nurses to not draw blood. Will recheck ultrasound of the left lower extremity though the patient did have a negative ultrasound and CT Angio of the chest within the last week. As the patient was unresponsive and is still mildly hypoxic with sepsis from the left lower extremity cellulitis, will readmit the patient. At first the patient was hesitant to be readmitted, however we discussed the severity of his infection, the fact that he was septic at this time and that his white blood cell count was rising again, and he did agree to stay. Last Recorded V/S: Last Vital Signs Temp 97.8 F 03/08/20 04:16 Pulse 76 03/08/20 04:16 Resp 21 H 03/08/20 04:16 BP 159/91 H 03/08/20 04:16 Pulse Ox 95 03/08/20 04:16 - Orders/Labs/Meds Orders: Active Orders 24 hr Category Date Time Status Patient Status [ADT] Routine ADT 03/07/20 18:52 Active CULTURE BLOOD [BC] Stat Lab 03/07/20 17:30 Received CULTURE BLOOD [BC] Stat Lab 03/07/20 17:40 Received Sodium Chloride 0.9% [Saline Flush] Med 03/07/20 17:06 Active 10 ml FLUSH ASDIRECTED PRN Sodium Chloride 0.9% [Saline Flush] Med 03/07/20 17:06 Active 2.5 ml FLUSH ASDIRECTED PRN Blood Culture x2 Reflex Set [OM.PC] Stat Ot 03/07/20 17:06 Ordered Saline Lock Insert [OM.PC] Stat Ot 03/07/20 17:06 Ordered Severe Sepsis Onset Time [OM.PC] Stat Ot 03/07/20 17:06 Ordered Medication Orders Acetaminophen (Tylenol) 650 mg PO Q4H PRN PRN Reason: Pain (Mild 1-3)/fever Heparin Sodium (Porcine) (Heparin Sodium) 5,000 units SUBCUT Q8H [facility] Last Admin: 03/08/20 00:22 Dose: 5,000 units Documented by: THIERRY Daptomycin 1,200 mg/ Sodium (Chloride) 24 mls @ 480 mls/hr IVPUSH Q24H [facility] Last Admin: 03/07/20 23:38 Dose: 480 mls/hr Documented by: THIERRY Pharmacy Consult (Consult To Pharmacy) 1 each .XX ASDIRECTED MARCIA Sodium Chloride (Saline Flush) 10 ml FLUSH ASDIRECTED PRN PRN Reason: Keep Vein Open Sodium Chloride (Saline Flush) 2.5 ml FLUSH ASDIRECTED PRN PRN Reason: Keep Vein Open Labs: Laboratory Tests 03/07/20 03/07/20 03/07/20 Range/Units 17:26 17:30 17:30 WBC 16.16 H (4.0-11.0) K/uL RBC 4.77 (4.50-5.90) M/uL Hgb 13.9 (13.0-17.0) g/dL Hct 43.2 (38.0-50.0) % MCV 90.6 (80.0-98.0) fL MCH 29.1 (27.0-32.0) pg MCHC 32.2 (31.0-37.0) g/dL RDW Std Deviation 44.6 (28.0-62.0) fl RDW Coeff of Coreen 14 (11.0-15.0) % Plt Count 320 (150-400) K/uL MPV 9.90 (7.40-12.00) fL Add Manual Diff YES Neutrophils % (Manual) 68 (48.0-80.0) % Band Neutrophils % 5 % Lymphocytes % (Manual) 14 L (16.0-40.0) % Monocytes % (Manual) 3 (0.0-15.0) % Eosinophils % (Manual) 7 (0.0-7.0) % Metamyelocytes % 2 % Myelocytes % 1 % Nucleated RBC % 0.0 /100WBC Absolute Seg Neuts 11.0 H (1.4-5.7) Band Neutrophils # 0.8 Lymphocytes # (Manual) 2.3 (0.6-2.4) Monocytes # (Manual) 0.5 (0.0-0.8) Eosinophils # (Manual) 1.1 H (0.0-0.7) Absolute Metamyelocyte 0.3 Absolute Myelocytes 0.2 Nucleated RBCs # 0 K/uL ABG pH 7.347 L (7.35-7.45) ABG pCO2 43 (35-45) mmHG ABG pO2 63 L (75-100) mmHG ABG HCO3 23 (22-26) mEq/L ABG Total CO2 20.9 ABG Base Excess -2.4 L (-2.0-2.0) Lactate 1.1 (0.20-2.00) mmol/L Sodium (136-148) mmol/L Potassium (3.5-5.1) mmol/L Chloride (98-107) mmol/L Carbon Dioxide (21.0-32.0) mmol/L BUN (7.0-18.0) mg/dL Creatinine (0.8-1.3) mg/dL Est Cr Clr Drug Dosing Estimated GFR (MDRD) ml/min Glucose (74-106) mg/dL Calcium (8.5-10.1) mg/dL Total Bilirubin (0.2-1.0) mg/dL AST (15-37) IU/L ALT (14-63) IU/L Alkaline Phosphatase (46-116) U/L Troponin I (0.000-0.056) ng/mL Total Protein (6.4-8.2) g/dL Albumin (3.4-5.0) g/dL Globulin (2.6-4.0) g/dL Albumin/Globulin Ratio (0.9-1.6) Urine Color Urine Appearance Urine pH (5.0-8.0) Ur Specific [place] (1.001-1.035) Urine Protein (NEGATIVE) mg/dL Urine Glucose (UA) (NEGATIVE) mg/dL Urine Ketones (NEGATIVE) mg/dL Urine Occult Blood (NEGATIVE) Urine Nitrite (NEGATIVE) Urine Bilirubin (NEGATIVE) Urine Urobilinogen (<2.0) EU/dL Ur Leukocyte Esterase (NEGATIVE) Urine RBC (0-2/HPF) Urine WBC (0-5/HPF) Ur Epithelial Cells (NONE-FEW) Amorphous Sediment (NEGATIVE) Urine Bacteria (NEGATIVE) Urine Mucus (NONE-MOD) Urine Opiates Screen (NEGATIVE) Ur Oxycodone Screen (NEGATIVE) Urine Methadone Screen (NEGATIVE) Ur Barbiturates Screen (NEGATIVE) Ur Phencyclidine Scrn (NEGATIVE) Ur Amphetamine Screen (NEGATIVE) U Methamphetamines Scrn (NEGATIVE) U Benzodiazepines Scrn (NEGATIVE) U Cocaine Metab Screen (NEGATIVE) U Marijuana (THC) Screen (NEGATIVE) 03/07/20 03/07/20 03/07/20 Range/Units 17:30 18:45 18:45 WBC (4.0-11.0) K/uL RBC (4.50-5.90) M/uL Hgb (13.0-17.0) g/dL Hct (38.0-50.0) % MCV (80.0-98.0) fL MCH (27.0-32.0) pg MCHC (31.0-37.0) g/dL RDW Std Deviation (28.0-62.0) fl RDW Coeff of Coreen (11.0-15.0) % Plt Count (150-400) K/uL MPV (7.40-12.00) fL Add Manual Diff Neutrophils % (Manual) (48.0-80.0) % Band Neutrophils % % Lymphocytes % (Manual) (16.0-40.0) % Monocytes % (Manual) (0.0-15.0) % Eosinophils % (Manual) (0.0-7.0) % Metamyelocytes % % Myelocytes % % Nucleated RBC % /100WBC Absolute Seg Neuts (1.4-5.7) Band Neutrophils # Lymphocytes # (Manual) (0.6-2.4) Monocytes # (Manual) (0.0-0.8) Eosinophils # (Manual) (0.0-0.7) Absolute Metamyelocyte Absolute Myelocytes Nucleated RBCs # K/uL ABG pH (7.35-7.45) ABG pCO2 (35-45) mmHG ABG pO2 (75-100) mmHG ABG HCO3 (22-26) mEq/L ABG Total CO2 ABG Base Excess (-2.0-2.0) Lactate (0.20-2.00) mmol/L Sodium 139 (136-148) mmol/L Potassium 4.2 (3.5-5.1) mmol/L Chloride 104 (98-107) mmol/L Carbon Dioxide 24.8 (21.0-32.0) mmol/L BUN 17 (7.0-18.0) mg/dL Creatinine 1.1 (0.8-1.3) mg/dL Est Cr Clr Drug Dosing TNP Estimated GFR (MDRD) > 60.0 ml/min Glucose 128 H (74-106) mg/dL Calcium 9.0 (8.5-10.1) mg/dL Total Bilirubin 0.2 (0.2-1.0) mg/dL AST 38 H (15-37) IU/L ALT 75 H (14-63) IU/L Alkaline Phosphatase 47 (46-116) U/L Troponin I < 0.050 (0.000-0.056) ng/mL Total Protein 7.9 (6.4-8.2) g/dL Albumin 3.5 (3.4-5.0) g/dL Globulin 4.4 H (2.6-4.0) g/dL Albumin/Globulin Ratio 0.8 L (0.9-1.6) Urine Color YELLOW Urine Appearance CLEAR Urine pH 6.0 (5.0-8.0) Ur Specific [place] >= 1.030 (1.001-1.035) Urine Protein 100 H (NEGATIVE) mg/dL Urine Glucose (UA) NEGATIVE (NEGATIVE) mg/dL Urine Ketones NEGATIVE (NEGATIVE) mg/dL Urine Occult Blood NEGATIVE (NEGATIVE) Urine Nitrite NEGATIVE (NEGATIVE) Urine Bilirubin NEGATIVE (NEGATIVE) Urine Urobilinogen 0.2 (<2.0) EU/dL Ur Leukocyte Esterase NEGATIVE (NEGATIVE) Urine RBC NONE SEEN (0-2/HPF) Urine WBC 1-3 (0-5/HPF) Ur Epithelial Cells OCCASIONAL (NONE-FEW) Amorphous Sediment FEW (NEGATIVE) Urine Bacteria FEW (NEGATIVE) Urine Mucus FEW (NONE-MOD) Urine Opiates Screen NEGATIVE (NEGATIVE) Ur Oxycodone Screen NEGATIVE (NEGATIVE) Urine Methadone Screen NEGATIVE (NEGATIVE) Ur Barbiturates Screen NEGATIVE (NEGATIVE) Ur Phencyclidine Scrn NEGATIVE (NEGATIVE) Ur Amphetamine Screen NEGATIVE (NEGATIVE) U Methamphetamines Scrn NEGATIVE (NEGATIVE) U Benzodiazepines Scrn NEGATIVE (NEGATIVE) U Cocaine Metab Screen NEGATIVE (NEGATIVE) U Marijuana (THC) Screen NEGATIVE (NEGATIVE) Meds: Medications Generic Name Dose Route Start Last Admin Trade Name Freq PRN Reason Stop Dose Admin Acetaminophen 650 mg 03/07/20 23:48 Tylenol PO Q4H PRN Pain (Mild 1-3)/fever Heparin Sodium (Porcine) 5,000 units 03/08/20 00:00 03/08/20 00:22 Heparin Sodium SUBCUT 5,000 units Q8H MARCIA Administration Daptomycin 1,200 mg/ Sodium 24 mls @ 480 mls/hr 03/07/20 23:00 03/07/20 23:38 Chloride IVPUSH 480 mls/hr Q24H MARCIA Administration Pharmacy Consult 1 each 03/07/20 21:30 Consult To Pharmacy .XX ASDIRECTED [facility] Sodium Chloride 10 ml 03/07/20 17:06 Saline Flush FLUSH ASDIRECTED PRN Keep Vein Open Sodium Chloride 2.5 ml 03/07/20 17:06 Saline Flush FLUSH ASDIRECTED PRN Keep Vein Open Discontinued Medications Generic Name Dose Route Start Last Admin Trade Name Fregaye PRN Reason Stop Dose Admin Vancomycin HCl 2 gm/ Dextrose/ 250 mls @ 167 mls/hr 03/07/20 17:06 03/07/20 21:35 Water IV 03/07/20 18:35 Not Given ONETIME ONE Ceftriaxone Sodium 1 gm/ 100 mls @ 200 mls/hr 03/07/20 17:06 03/07/20 19:16 Sodium Chloride IV 03/07/20 17:35 Not Given STAT ONE Sodium Chloride 1,000 mls @ 999 mls/hr 03/07/20 17:06 03/07/20 17:39 Normal Saline IV 03/07/20 18:06 999 mls/hr .Bolus ONE Administration Ceftriaxone Sodium/Dextrose 1 50 mls @ 100 mls/hr 03/07/20 19:02 03/07/20 19:21 gm/ Premix IV 03/07/20 19:31 100 mls/hr ONETIME ONE Administration Vancomycin HCl 2 gm/ Sodium 500 mls @ 250 mls/hr 03/07/20 20:00 03/07/20 20:14 Chloride IV 03/07/20 21:59 250 mls/hr ONETIME ONE Administration Vancomycin HCl 2 gm/ Sodium 500 mls @ 250 mls/hr 03/08/20 04:00 Chloride IV Q8H [facility] Vancomycin HCl 1 dose 03/07/20 20:15 Pharmacy To Dose - Vancomycin .XX ASDIRECTED [facility] - Re-Assessments/Exams Free Text/Narrative Re-Assessment/Exam: 03/07/20 18:[address] Pena. He accepts the admission, request to place the patient under observation/telemetry. Departure - Departure Time of Disposition: 18:49 Disposition: Refer to Observation Clinical Impression: Cellulitis of left leg Sepsis Qualifiers: Sepsis type: sepsis due to unspecified organism Acute respiratory failure type: with hypoxia Severe sepsis shock status: without septic shock - Discharge Information Critical Care Note - Critical Care Note Total Time (mins): 35 Comments: Sepsis, tachycardic, hypoxic - My Orders Last 24 Hours: My Active Orders 03/07/20 17:06 Sodium Chloride 0.9% [Saline Flush] 10 ml FLUSH ASDIRECTED PRN Sodium Chloride 0.9% [Saline Flush] 2.5 ml FLUSH ASDIRECTED PRN Blood Culture x2 Reflex Set [OM.PC] Stat Saline Lock Insert [OM.PC] Stat Severe Sepsis Onset Time [OM.PC] Stat 03/07/20 17:30 CULTURE BLOOD [BC] Stat 03/07/20 17:40 CULTURE BLOOD [BC] Stat 03/07/20 18:52 Patient Status [ADT] Routine - Assessment/Plan Last 24 Hours: My Active Orders 03/07/20 17:06 Sodium Chloride 0.9% [Saline Flush] 10 ml FLUSH ASDIRECTED PRN Sodium Chloride 0.9% [Saline Flush] 2.5 ml FLUSH ASDIRECTED PRN Blood Culture x2 Reflex Set [OM.PC] Stat Saline Lock Insert [OM.PC] Stat Severe Sepsis Onset Time [OM.PC] Stat 03/07/20 17:30 CULTURE BLOOD [BC] Stat 03/07/20 17:40 CULTURE BLOOD [BC] Stat 03/07/20 18:52 Patient Status [ADT] Routine
[2020-03-07 18:14] LABS: BLOOD UREA NITROGEN,BUN 17 mg/dL (7.0-18.0); CARBON DIOXIDE,CO2 24.8 mmol/L (21.0-32.0); CHLORIDE,CL 104 mmol/L (98-107); GLUCOSE RANDOM 128 mg/dL (74-106); POTASSIUM,K 4.2 mmol/L (3.5-5.1); SODIUM,NA 139 mmol/L (136-148)
--- NOTE | 2020-03-07 18:30 | US ---
Left lower extremity deep venous ultrasound: Duplex and color Doppler evaluation was obtained of the left common femoral, superficial femoral, popliteal, posterior tibial and peroneal veins. Findings: Normal compression and Doppler blood flow is seen. No popliteal cyst is seen. No subcutaneous edema is appreciated. Impression: 1. No evidence of deep venous thrombosis within the left lower extremity. Diagnostic code #1 This report was dictated in MDT
--- NOTE | 2020-03-07 19:00 | CR ---
Chest: 2 views of the chest were obtained. Comparison: Prior chest x-ray of 01/21/19. Film technique is light on the frontal view. Within this limitation, lungs are felt to be clear with no acute parenchymal change. Heart size and mediastinum are normal. Bony structures are unremarkable. Impression: 1. Slightly late technique. Within this limitation, nothing acute is appreciated on 2 view chest x-ray. Diagnostic code #2 This report was dictated in MDT
[2020-03-07] MEDS ORDERED: cefTRIAXone 1 GM in Premix Bag 1 BAG IV ONE (19:02)
[2020-03-07] MEDS ORDERED: Vancomycin 2 GM in Sodium Chloride 0.9% 500 ML IV ONE (20:00)
--- NOTE | 2020-03-07 23:33 | PCM.HP.2 ---
H&P History of Present Illness - General Date of Service: 03/07/20 Admit Problem/Dx: Admission Diagnosis/Problem Admission Diagnosis/Problem Sepsis - History of Present Illness Initial Comments - Free Text/Narative: 29 yo male who was discharged two days ago after being hospitalized for left lower leg cellulitis. Patient reports yesterday he did have improvement in the swelling of his leg but today it came back again to the point of were it was at discharge. He fell asleep on the couch and it took family 15minutes to wake him up. During his last admision it was felt patient had sleep apnea. - Related Data Allergies/Adverse Reactions: Allergies Allergy/AdvReac Type Severity Reaction Status Date / Time hydrocodone bitartrate Allergy Swollen Verified 03/07/20 17:19 [From Vicodin] Tongue Home Medications: Home Meds Sulfamethoxazole/Trimethoprim [Bactrim Ds Tablet] 1 each PO BID #10 tablet 03/05/20 [Rx] Past Medical History - Past Health History Medical/Surgical History: Denies Medical/Surgical History HEENT History: Reports: Other (See Below) Other HEENT History: wears contact lences Cardiovascular History: Reports: None Other Cardiovascular History: will be checked by Dr. Bebeto Allison before -The patient told me that he saw Dr. Allison and he was cleared for surgery. Respiratory History: Reports: None Gastrointestinal History: Reports: GERD Genitourinary History: Reports: None Musculoskeletal History: Reports: Fracture Other Musculoskeletal History: left arm and left thumb Neurological History: Reports: None Psychiatric History: Reports: Addiction Endocrine/Metabolic History: Reports: Hypothyroidism, Obesity/BMI 30+ Hematologic History: Reports: None Immunologic History: Reports: None Oncologic (Cancer) History: Reports: None Dermatologic History: Reports: Cellulitis - Infectious Disease History Infectious Disease History: Reports: None - Past Surgical History Head Surgeries/Procedures: Reports: None HEENT Surgical History: Reports: None Cardiovascular Surgical History: Reports: None Respiratory Surgical History: Reports: None GI Surgical History: Reports: Appendectomy Male Surgical History: Reports: None Endocrine Surgical History: Reports: None Neurological Surgical History: Reports: None Musculoskeletal Surgical History: Reports: ORIF, Other (See Below) Other Musculoskeletal Surgeries/Procedures:: left arm surgery with plate and screws right sciatic pain Oncologic Surgical History: Reports: None Dermatological Surgical History: Reports: None - History Comment History Comment: etoh "1x a week". Social & Family History - Family History Family Medical History: Noncontributory Cardiac: Reports: [place] Psychiatric: Reports: Anxiety, Depression - Tobacco Use Smoking Status *Q: Current Every Day Smoker Years of Tobacco use: 20 Packs/Tins Daily: 5 - Caffeine Use Caffeine Use: Reports: Soda - Recreational Drug Use Recreational Drug Use: Yes Recreational Drug Type: Reports: Cocaine Recreational Drug Use Frequency: Not Used In Over 2 Months H&P Review of Systems - Review of Systems: Review Of Systems: Comprehensive ROS is negative, except as noted in HPI. Exam - Exam Exam: See Below - Vital Signs Vital Signs: Last Vital Signs Temp 36.8 C 03/07/20 20:00 Pulse 89 03/07/20 20:00 Resp 20 03/07/20 20:00 BP 152/89 H 03/07/20 20:00 Pulse Ox 95 03/07/20 20:00 Weight: 156.489 kg - Exam General: Alert, Oriented HEENT: Mucosa Moist & [place] Neck: Supple, Trachea Midline Lungs: Clear to Auscultation, Normal Respiratory Effort Cardiovascular: Regular Rate, Regular Rhythm GI/Abdominal Exam: Normal Bowel Sounds, Soft, Non-Tender Extremities: Non-Tender, Other (circumfrental erythema around left lower calf) Neurological: No: Focal Deficit - Patient Data Lab Results Last 24 hrs: Laboratory Results - last 24 hr 03/07/20 03/07/20 03/07/20 Range/Units 17:26 17:30 17:30 WBC 16.16 H (4.0-11.0) K/uL RBC 4.77 (4.50-5.90) M/uL Hgb 13.9 (13.0-17.0) g/dL Hct 43.2 (38.0-50.0) % MCV 90.6 (80.0-98.0) fL MCH 29.1 (27.0-32.0) pg MCHC 32.2 (31.0-37.0) g/dL RDW Std Deviation 44.6 (28.0-62.0) fl RDW Coeff of Coreen 14 (11.0-15.0) % Plt Count 320 (150-400) K/uL MPV 9.90 (7.40-12.00) fL Add Manual Diff YES Neutrophils % (Manual) 68 (48.0-80.0) % Band Neutrophils % 5 % Lymphocytes % (Manual) 14 L (16.0-40.0) % Monocytes % (Manual) 3 (0.0-15.0) % Eosinophils % (Manual) 7 (0.0-7.0) % Metamyelocytes % 2 % Myelocytes % 1 % Nucleated RBC % 0.0 /100WBC Absolute Seg Neuts 11.0 H (1.4-5.7) Band Neutrophils # 0.8 Lymphocytes # (Manual) 2.3 (0.6-2.4) Monocytes # (Manual) 0.5 (0.0-0.8) Eosinophils # (Manual) 1.1 H (0.0-0.7) Absolute Metamyelocyte 0.3 Absolute Myelocytes 0.2 Nucleated RBCs # 0 K/uL ABG pH 7.347 L (7.35-7.45) ABG pCO2 43 (35-45) mmHG ABG pO2 63 L (75-100) mmHG ABG HCO3 23 (22-26) mEq/L ABG Total CO2 20.9 ABG Base Excess -2.4 L (-2.0-2.0) Lactate 1.1 (0.20-2.00) mmol/L Sodium (136-148) mmol/L Potassium (3.5-5.1) mmol/L Chloride (98-107) mmol/L Carbon Dioxide (21.0-32.0) mmol/L BUN (7.0-18.0) mg/dL Creatinine (0.8-1.3) mg/dL Est Cr Clr Drug Dosing Estimated GFR (MDRD) ml/min Glucose (74-106) mg/dL Calcium (8.5-10.1) mg/dL Total Bilirubin (0.2-1.0) mg/dL AST (15-37) IU/L ALT (14-63) IU/L Alkaline Phosphatase (46-116) U/L Troponin I (0.000-0.056) ng/mL Total Protein (6.4-8.2) g/dL Albumin (3.4-5.0) g/dL Globulin (2.6-4.0) g/dL Albumin/Globulin Ratio (0.9-1.6) Urine Color Urine Appearance Urine pH (5.0-8.0) Ur Specific [place] (1.001-1.035) Urine Protein (NEGATIVE) mg/dL Urine Glucose (UA) (NEGATIVE) mg/dL Urine Ketones (NEGATIVE) mg/dL Urine Occult Blood (NEGATIVE) Urine Nitrite (NEGATIVE) Urine Bilirubin (NEGATIVE) Urine Urobilinogen (<2.0) EU/dL Ur Leukocyte Esterase (NEGATIVE) Urine RBC (0-2/HPF) Urine WBC (0-5/HPF) Ur Epithelial Cells (NONE-FEW) Amorphous Sediment (NEGATIVE) Urine Bacteria (NEGATIVE) Urine Mucus (NONE-MOD) Urine Opiates Screen (NEGATIVE) Ur Oxycodone Screen (NEGATIVE) Urine Methadone Screen (NEGATIVE) Ur Barbiturates Screen (NEGATIVE) Ur Phencyclidine Scrn (NEGATIVE) Ur Amphetamine Screen (NEGATIVE) U Methamphetamines Scrn (NEGATIVE) U Benzodiazepines Scrn (NEGATIVE) U Cocaine Metab Screen (NEGATIVE) U Marijuana (THC) Screen (NEGATIVE) COVID-19 (WENDY) (NEGATIVE) 03/07/20 03/07/20 03/07/20 Range/Units 17:30 18:45 18:45 WBC (4.0-11.0) K/uL RBC (4.50-5.90) M/uL Hgb (13.0-17.0) g/dL Hct (38.0-50.0) % MCV (80.0-98.0) fL MCH (27.0-32.0) pg MCHC (31.0-37.0) g/dL RDW Std Deviation (28.0-62.0) fl RDW Coeff of Ocreen (11.0-15.0) % Plt Count (150-400) K/uL MPV (7.40-12.00) fL Add Manual Diff Neutrophils % (Manual) (48.0-80.0) % Band Neutrophils % % Lymphocytes % (Manual) (16.0-40.0) % Monocytes % (Manual) (0.0-15.0) % Eosinophils % (Manual) (0.0-7.0) % Metamyelocytes % % Myelocytes % % Nucleated RBC % /100WBC Absolute Seg Neuts (1.4-5.7) Band Neutrophils # Lymphocytes # (Manual) (0.6-2.4) Monocytes # (Manual) (0.0-0.8) Eosinophils # (Manual) (0.0-0.7) Absolute Metamyelocyte Absolute Myelocytes Nucleated RBCs # K/uL ABG pH (7.35-7.45) ABG pCO2 (35-45) mmHG ABG pO2 (75-100) mmHG ABG HCO3 (22-26) mEq/L ABG Total CO2 ABG Base Excess (-2.0-2.0) Lactate (0.20-2.00) mmol/L Sodium 139 (136-148) mmol/L Potassium 4.2 (3.5-5.1) mmol/L Chloride 104 (98-107) mmol/L Carbon Dioxide 24.8 (21.0-32.0) mmol/L BUN 17 (7.0-18.0) mg/dL Creatinine 1.1 (0.8-1.3) mg/dL Est Cr Clr Drug Dosing TNP Estimated GFR (MDRD) > 60.0 ml/min Glucose 128 H (74-106) mg/dL Calcium 9.0 (8.5-10.1) mg/dL Total Bilirubin 0.2 (0.2-1.0) mg/dL AST 38 H (15-37) IU/L ALT 75 H (14-63) IU/L Alkaline Phosphatase 47 (46-116) U/L Troponin I < 0.050 (0.000-0.056) ng/mL Total Protein 7.9 (6.4-8.2) g/dL Albumin 3.5 (3.4-5.0) g/dL Globulin 4.4 H (2.6-4.0) g/dL Albumin/Globulin Ratio 0.8 L (0.9-1.6) Urine Color YELLOW Urine Appearance CLEAR Urine pH 6.0 (5.0-8.0) Ur Specific [place] >= 1.030 (1.001-1.035) Urine Protein 100 H (NEGATIVE) mg/dL Urine Glucose (UA) NEGATIVE (NEGATIVE) mg/dL Urine Ketones NEGATIVE (NEGATIVE) mg/dL Urine Occult Blood NEGATIVE (NEGATIVE) Urine Nitrite NEGATIVE (NEGATIVE) Urine Bilirubin NEGATIVE (NEGATIVE) Urine Urobilinogen 0.2 (<2.0) EU/dL Ur Leukocyte Esterase NEGATIVE (NEGATIVE) Urine RBC NONE SEEN (0-2/HPF) Urine WBC 1-3 (0-5/HPF) Ur Epithelial Cells OCCASIONAL (NONE-FEW) Amorphous Sediment FEW (NEGATIVE) Urine Bacteria FEW (NEGATIVE) Urine Mucus FEW (NONE-MOD) Urine Opiates Screen NEGATIVE (NEGATIVE) Ur Oxycodone Screen NEGATIVE (NEGATIVE) Urine Methadone Screen NEGATIVE (NEGATIVE) Ur Barbiturates Screen NEGATIVE (NEGATIVE) Ur Phencyclidine Scrn NEGATIVE (NEGATIVE) Ur Amphetamine Screen NEGATIVE (NEGATIVE) U Methamphetamines Scrn NEGATIVE (NEGATIVE) U Benzodiazepines Scrn NEGATIVE (NEGATIVE) U Cocaine Metab Screen NEGATIVE (NEGATIVE) U Marijuana (THC) Screen NEGATIVE (NEGATIVE) COVID-19 (WENDY) (NEGATIVE) 03/07/20 Range/Units 18:55 WBC (4.0-11.0) K/uL RBC (4.50-5.90) M/uL Hgb (13.0-17.0) g/dL Hct (38.0-50.0) % MCV (80.0-98.0) fL MCH (27.0-32.0) pg MCHC (31.0-37.0) g/dL RDW Std Deviation (28.0-62.0) fl RDW Coeff of Coreen (11.0-15.0) % Plt Count (150-400) K/uL MPV (7.40-12.00) fL Add Manual Diff Neutrophils % (Manual) (48.0-80.0) % Band Neutrophils % % Lymphocytes % (Manual) (16.0-40.0) % Monocytes % (Manual) (0.0-15.0) % Eosinophils % (Manual) (0.0-7.0) % Metamyelocytes % % Myelocytes % % Nucleated RBC % /100WBC Absolute Seg Neuts (1.4-5.7) Band Neutrophils # Lymphocytes # (Manual) (0.6-2.4) Monocytes # (Manual) (0.0-0.8) Eosinophils # (Manual) (0.0-0.7) Absolute Metamyelocyte Absolute Myelocytes Nucleated RBCs # K/uL ABG pH (7.35-7.45) ABG pCO2 (35-45) mmHG ABG pO2 (75-100) mmHG ABG HCO3 (22-26) mEq/L ABG Total CO2 ABG Base Excess (-2.0-2.0) Lactate (0.20-2.00) mmol/L Sodium (136-148) mmol/L Potassium (3.5-5.1) mmol/L Chloride (98-107) mmol/L Carbon Dioxide (21.0-32.0) mmol/L BUN (7.0-18.0) mg/dL Creatinine (0.8-1.3) mg/dL Est Cr Clr Drug Dosing Estimated GFR (MDRD) ml/min Glucose (74-106) mg/dL Calcium (8.5-10.1) mg/dL Total Bilirubin (0.2-1.0) mg/dL AST (15-37) IU/L ALT (14-63) IU/L Alkaline Phosphatase (46-116) U/L Troponin I (0.000-0.056) ng/mL Total Protein (6.4-8.2) g/dL Albumin (3.4-5.0) g/dL Globulin (2.6-4.0) g/dL Albumin/Globulin Ratio (0.9-1.6) Urine Color Urine Appearance Urine pH (5.0-8.0) Ur Specific [place] (1.001-1.035) Urine Protein (NEGATIVE) mg/dL Urine Glucose (UA) (NEGATIVE) mg/dL Urine Ketones (NEGATIVE) mg/dL Urine Occult Blood (NEGATIVE) Urine Nitrite (NEGATIVE) Urine Bilirubin (NEGATIVE) Urine Urobilinogen (<2.0) EU/dL Ur Leukocyte Esterase (NEGATIVE) Urine RBC (0-2/HPF) Urine WBC (0-5/HPF) Ur Epithelial Cells (NONE-FEW) Amorphous Sediment (NEGATIVE) Urine Bacteria (NEGATIVE) Urine Mucus (NONE-MOD) Urine Opiates Screen (NEGATIVE) Ur Oxycodone Screen (NEGATIVE) Urine Methadone Screen (NEGATIVE) Ur Barbiturates Screen (NEGATIVE) Ur Phencyclidine Scrn (NEGATIVE) Ur Amphetamine Screen (NEGATIVE) U Methamphetamines Scrn (NEGATIVE) U Benzodiazepines Scrn (NEGATIVE) U Cocaine Metab Screen (NEGATIVE) U Marijuana (THC) Screen (NEGATIVE) COVID-19 (WENDY) NEGATIVE (NEGATIVE) Result Diagrams: 03/08/20 05:45 03/08/20 05:45 Sepsis Event Note - Evaluation Sepsis Screening Result: No Definite Risk - Focused Exam Vital Signs: Vital Signs Temp Temp Pulse Resp BP Pulse Ox 03/07/20 20:00 36.8 C 89 20 152/89 H 95 03/07/20 19:03 95 25 H 151/90 H 95 03/07/20 18:43 93 23 H 113/59 L 76 L 03/07/20 17:45 91 22 H 100/53 L 91 L 03/07/20 17:07 36.2 C 105 H 16 145/76 H 87 L 03/07/20 17:05 93 L 03/07/20 17:03 106 H 26 H 145/76 H 88 L Date Exam was Performed: 03/08/20 Time Exam was Performed: 09:55 Problem List Initiated/Reviewed/Updated: Yes Orders Last 24hrs: Active Orders 24 hr Category Date Time Status Patient Status [ADT] Routine ADT 03/07/20 18:52 Active Blood Pressure Mgt: Sepsis [RC] [id number] Care 03/07/20 17:06 Active Telemetry Monitoring [Cardiac Monitoring] [RC] Q8H Care 03/07/20 19:51 Active Regular Diet [DIET] Diet 03/08/20 Breakfast Active CULTURE BLOOD [BC] Stat Lab 03/07/20 17:30 Received CULTURE BLOOD [BC] Stat Lab 03/07/20 17:40 Received VANCOMYCIN TROUGH [CHEM] Timed Lab 03/08/20 19:30 Ordered DAPTOmycin [Cubicin] 1,200 mg Med 03/07/20 23:00 Active Sodium Chloride 0.9% [Normal Saline] 24 ml IVPUSH Q24H Pharmacy Consult [Consult to Pharmacy] Med 03/07/20 21:30 Pending 1 each .XX ASDIRECTED Sodium Chloride 0.9% [Saline Flush] Med 03/07/20 17:06 Active 10 ml FLUSH ASDIRECTED PRN Sodium Chloride 0.9% [Saline Flush] Med 03/07/20 17:06 Active 2.5 ml FLUSH ASDIRECTED PRN Blood Culture x2 Reflex Set [OM.PC] Stat Oth 03/07/20 17:06 Ordered Saline Lock Insert [OM.PC] Stat Oth 03/07/20 17:06 Ordered Severe Sepsis Onset Time [OM.PC] Stat Oth 03/07/20 17:06 Ordered Medication Orders Daptomycin 1,200 mg/ Sodium (Chloride) 24 mls @ 480 mls/hr IVPUSH Q24H [facility] Pharmacy Consult (Consult To Pharmacy) 1 each .XX ASDIRECTED MARCIA Sodium Chloride (Saline Flush) 10 ml FLUSH ASDIRECTED PRN PRN Reason: Keep Vein Open Sodium Chloride (Saline Flush) 2.5 ml FLUSH ASDIRECTED PRN PRN Reason: Keep Vein Open Assessment/Plan Comment:: 29 yo male admitted for lower leg cellulitis. We will treat with Daptomycin. We will monitor with pulse oximeter overnight.
[2020-03-07] MEDS: SODIUM CHLORIDE 0.9% IVPUSH SCH (23:38)
[2020-03-07] MEDS: DAPTOMYCIN IVPUSH SCH (23:38)
[2020-03-07] MEDS ORDERED: Acetaminophen 325 MG Tab PO PRN (23:48)
[2020-03-08] MEDS: Heparin Sodium 5,000 Units/ML Vial SUBCUT SCH ×2 (00:22→08:12)
[2020-03-08] MEDS ORDERED: Vancomycin 2 GM in Sodium Chloride 0.9% 500 ML IV SCH (04:00)
[2020-03-08 06:30] LABS: BLOOD UREA NITROGEN,BUN 14 mg/dL (7.0-18.0); CARBON DIOXIDE,CO2 22.7 mmol/L (21.0-32.0); CHLORIDE,CL 105 mmol/L (98-107); GLUCOSE RANDOM 99 mg/dL (74-106); POTASSIUM,K 4.3 mmol/L (3.5-5.1); SODIUM,NA 139 mmol/L (136-148)
--- NOTE | 2020-03-08 09:55 | PCM.PN ---
- General Info Date of Service: 03/08/20 - Review of Systems Systems Review Comment:: no fevers, leg swelling has improved. - Patient Data Vitals - Most Recent: Last Vital Signs Temp 36.8 C 03/08/20 08:00 Pulse 76 03/08/20 08:00 Resp 16 03/08/20 08:00 BP 132/66 03/08/20 08:00 Pulse Ox 95 03/08/20 08:00 Weight - Most Recent: 156.489 kg I&O - Last 24 Hours: Intake & Output 03/07/20 03/08/20 03/08/20 22:59 06:59 14:59 Intake Total 1444 Output Total 680 Balance 764 Lab Results Last 24 Hours: Laboratory Results - last 24 hr 03/07/20 03/07/20 03/07/20 Range/Units 17:26 17:30 17:30 WBC 16.16 H (4.0-11.0) K/uL RBC 4.77 (4.50-5.90) M/uL Hgb 13.9 (13.0-17.0) g/dL Hct 43.2 (38.0-50.0) % MCV 90.6 (80.0-98.0) fL MCH 29.1 (27.0-32.0) pg MCHC 32.2 (31.0-37.0) g/dL RDW Std Deviation 44.6 (28.0-62.0) fl RDW Coeff of Coreen 14 (11.0-15.0) % Plt Count 320 (150-400) K/uL MPV 9.90 (7.40-12.00) fL Add Manual Diff YES Neutrophils % (Manual) 68 (48.0-80.0) % Band Neutrophils % 5 % Lymphocytes % (Manual) 14 L (16.0-40.0) % Monocytes % (Manual) 3 (0.0-15.0) % Eosinophils % (Manual) 7 (0.0-7.0) % Metamyelocytes % 2 % Myelocytes % 1 % Nucleated RBC % 0.0 /100WBC Absolute Seg Neuts 11.0 H (1.4-5.7) Band Neutrophils # 0.8 Lymphocytes # (Manual) 2.3 (0.6-2.4) Monocytes # (Manual) 0.5 (0.0-0.8) Eosinophils # (Manual) 1.1 H (0.0-0.7) Absolute Metamyelocyte 0.3 Absolute Myelocytes 0.2 Nucleated RBCs # 0 K/uL ABG pH 7.347 L (7.35-7.45) ABG pCO2 43 (35-45) mmHG ABG pO2 63 L (75-100) mmHG ABG HCO3 23 (22-26) mEq/L ABG Total CO2 20.9 ABG Base Excess -2.4 L (-2.0-2.0) Lactate 1.1 (0.20-2.00) mmol/L Sodium (136-148) mmol/L Potassium (3.5-5.1) mmol/L Chloride (98-107) mmol/L Carbon Dioxide (21.0-32.0) mmol/L BUN (7.0-18.0) mg/dL Creatinine (0.8-1.3) mg/dL Est Cr Clr Drug Dosing Estimated GFR (MDRD) ml/min Glucose (74-106) mg/dL Calcium (8.5-10.1) mg/dL Total Bilirubin (0.2-1.0) mg/dL AST (15-37) IU/L ALT (14-63) IU/L Alkaline Phosphatase (46-116) U/L Troponin I (0.000-0.056) ng/mL Total Protein (6.4-8.2) g/dL Albumin (3.4-5.0) g/dL Globulin (2.6-4.0) g/dL Albumin/Globulin Ratio (0.9-1.6) Urine Color Urine Appearance Urine pH (5.0-8.0) Ur Specific [place] (1.001-1.035) Urine Protein (NEGATIVE) mg/dL Urine Glucose (UA) (NEGATIVE) mg/dL Urine Ketones (NEGATIVE) mg/dL Urine Occult Blood (NEGATIVE) Urine Nitrite (NEGATIVE) Urine Bilirubin (NEGATIVE) Urine Urobilinogen (<2.0) EU/dL Ur Leukocyte Esterase (NEGATIVE) Urine RBC (0-2/HPF) Urine WBC (0-5/HPF) Ur Epithelial Cells (NONE-FEW) Amorphous Sediment (NEGATIVE) Urine Bacteria (NEGATIVE) Urine Mucus (NONE-MOD) Urine Opiates Screen (NEGATIVE) Ur Oxycodone Screen (NEGATIVE) Urine Methadone Screen (NEGATIVE) Ur Barbiturates Screen (NEGATIVE) Ur Phencyclidine Scrn (NEGATIVE) Ur Amphetamine Screen (NEGATIVE) U Methamphetamines Scrn (NEGATIVE) U Benzodiazepines Scrn (NEGATIVE) U Cocaine Metab Screen (NEGATIVE) U Marijuana (THC) Screen (NEGATIVE) COVID-19 (WENDY) (NEGATIVE) 03/07/20 03/07/20 03/07/20 Range/Units 17:30 18:45 18:45 WBC (4.0-11.0) K/uL RBC (4.50-5.90) M/uL Hgb (13.0-17.0) g/dL Hct (38.0-50.0) % MCV (80.0-98.0) fL MCH (27.0-32.0) pg MCHC (31.0-37.0) g/dL RDW Std Deviation (28.0-62.0) fl RDW Coeff of Coreen (11.0-15.0) % Plt Count (150-400) K/uL MPV (7.40-12.00) fL Add Manual Diff Neutrophils % (Manual) (48.0-80.0) % Band Neutrophils % % Lymphocytes % (Manual) (16.0-40.0) % Monocytes % (Manual) (0.0-15.0) % Eosinophils % (Manual) (0.0-7.0) % Metamyelocytes % % Myelocytes % % Nucleated RBC % /100WBC Absolute Seg Neuts (1.4-5.7) Band Neutrophils # Lymphocytes # (Manual) (0.6-2.4) Monocytes # (Manual) (0.0-0.8) Eosinophils # (Manual) (0.0-0.7) Absolute Metamyelocyte Absolute Myelocytes Nucleated RBCs # K/uL ABG pH (7.35-7.45) ABG pCO2 (35-45) mmHG ABG pO2 (75-100) mmHG ABG HCO3 (22-26) mEq/L ABG Total CO2 ABG Base Excess (-2.0-2.0) Lactate (0.20-2.00) mmol/L Sodium 139 (136-148) mmol/L Potassium 4.2 (3.5-5.1) mmol/L Chloride 104 (98-107) mmol/L Carbon Dioxide 24.8 (21.0-32.0) mmol/L BUN 17 (7.0-18.0) mg/dL Creatinine 1.1 (0.8-1.3) mg/dL Est Cr Clr Drug Dosing TNP Estimated GFR (MDRD) > 60.0 ml/min Glucose 128 H (74-106) mg/dL Calcium 9.0 (8.5-10.1) mg/dL Total Bilirubin 0.2 (0.2-1.0) mg/dL AST 38 H (15-37) IU/L ALT 75 H (14-63) IU/L Alkaline Phosphatase 47 (46-116) U/L Troponin I < 0.050 (0.000-0.056) ng/mL Total Protein 7.9 (6.4-8.2) g/dL Albumin 3.5 (3.4-5.0) g/dL Globulin 4.4 H (2.6-4.0) g/dL Albumin/Globulin Ratio 0.8 L (0.9-1.6) Urine Color YELLOW Urine Appearance CLEAR Urine pH 6.0 (5.0-8.0) Ur Specific P[place] >= 1.030 (1.001-1.035) Urine Protein 100 H (NEGATIVE) mg/dL Urine Glucose (UA) NEGATIVE (NEGATIVE) mg/dL Urine Ketones NEGATIVE (NEGATIVE) mg/dL Urine Occult Blood NEGATIVE (NEGATIVE) Urine Nitrite NEGATIVE (NEGATIVE) Urine Bilirubin NEGATIVE (NEGATIVE) Urine Urobilinogen 0.2 (<2.0) EU/dL Ur Leukocyte Esterase NEGATIVE (NEGATIVE) Urine RBC NONE SEEN (0-2/HPF) Urine WBC 1-3 (0-5/HPF) Ur Epithelial Cells OCCASIONAL (NONE-FEW) Amorphous Sediment FEW (NEGATIVE) Urine Bacteria FEW (NEGATIVE) Urine Mucus FEW (NONE-MOD) Urine Opiates Screen NEGATIVE (NEGATIVE) Ur Oxycodone Screen NEGATIVE (NEGATIVE) Urine Methadone Screen NEGATIVE (NEGATIVE) Ur Barbiturates Screen NEGATIVE (NEGATIVE) Ur Phencyclidine Scrn NEGATIVE (NEGATIVE) Ur Amphetamine Screen NEGATIVE (NEGATIVE) U Methamphetamines Scrn NEGATIVE (NEGATIVE) U Benzodiazepines Scrn NEGATIVE (NEGATIVE) U Cocaine Metab Screen NEGATIVE (NEGATIVE) U Marijuana (THC) Screen NEGATIVE (NEGATIVE) COVID-19 (WENDY) (NEGATIVE) 03/07/20 03/08/20 03/08/20 Range/Units 18:55 05:45 05:45 WBC 13.40 H (4.0-11.0) K/uL RBC 4.68 (4.50-5.90) M/uL Hgb 13.6 (13.0-17.0) g/dL Hct 43.1 (38.0-50.0) % MCV 92.1 (80.0-98.0) fL MCH 29.1 (27.0-32.0) pg MCHC 31.6 (31.0-37.0) g/dL RDW Std Deviation 46.8 (28.0-62.0) fl RDW Coeff of Coreen 14 (11.0-15.0) % Plt Count 306 (150-400) K/uL MPV 9.90 (7.40-12.00) fL Add Manual Diff YES Neutrophils % (Manual) 63 (48.0-80.0) % Band Neutrophils % % Lymphocytes % (Manual) 28 (16.0-40.0) % Monocytes % (Manual) 6 (0.0-15.0) % Eosinophils % (Manual) (0.0-7.0) % Metamyelocytes % 1 % Myelocytes % 2 % Nucleated RBC % 0.0 /100WBC Absolute Seg Neuts 8.4 H (1.4-5.7) Band Neutrophils # Lymphocytes # (Manual) 3.8 H (0.6-2.4) Monocytes # (Manual) 0.8 (0.0-0.8) Eosinophils # (Manual) (0.0-0.7) Absolute Metamyelocyte 0.1 Absolute Myelocytes 0.3 Nucleated RBCs # 0 K/uL ABG pH (7.35-7.45) ABG pCO2 (35-45) mmHG ABG pO2 (75-100) mmHG ABG HCO3 (22-26) mEq/L ABG Total CO2 ABG Base Excess (-2.0-2.0) Lactate (0.20-2.00) mmol/L Sodium 139 (136-148) mmol/L Potassium 4.3 (3.5-5.1) mmol/L Chloride 105 (98-107) mmol/L Carbon Dioxide 22.7 (21.0-32.0) mmol/L BUN 14 (7.0-18.0) mg/dL Creatinine 0.9 (0.8-1.3) mg/dL Est Cr Clr Drug Dosing 128.99 Estimated GFR (MDRD) > 60.0 ml/min Glucose 99 (74-106) mg/dL Calcium 8.5 (8.5-10.1) mg/dL Total Bilirubin (0.2-1.0) mg/dL AST (15-37) IU/L ALT (14-63) IU/L Alkaline Phosphatase (46-116) U/L Troponin I (0.000-0.056) ng/mL Total Protein (6.4-8.2) g/dL Albumin (3.4-5.0) g/dL Globulin (2.6-4.0) g/dL Albumin/Globulin Ratio (0.9-1.6) Urine Color Urine Appearance Urine pH (5.0-8.0) Ur Specific [place] (1.001-1.035) Urine Protein (NEGATIVE) mg/dL Urine Glucose (UA) (NEGATIVE) mg/dL Urine Ketones (NEGATIVE) mg/dL Urine Occult Blood (NEGATIVE) Urine Nitrite (NEGATIVE) Urine Bilirubin (NEGATIVE) Urine Urobilinogen (<2.0) EU/dL Ur Leukocyte Esterase (NEGATIVE) Urine RBC (0-2/HPF) Urine WBC (0-5/HPF) Ur Epithelial Cells (NONE-FEW) Amorphous Sediment (NEGATIVE) Urine Bacteria (NEGATIVE) Urine Mucus (NONE-MOD) Urine Opiates Screen (NEGATIVE) Ur Oxycodone Screen (NEGATIVE) Urine Methadone Screen (NEGATIVE) Ur Barbiturates Screen (NEGATIVE) Ur Phencyclidine Scrn (NEGATIVE) Ur Amphetamine Screen (NEGATIVE) U Methamphetamines Scrn (NEGATIVE) U Benzodiazepines Scrn (NEGATIVE) U Cocaine Metab Screen (NEGATIVE) U Marijuana (THC) Screen (NEGATIVE) COVID-19 (WENDY) NEGATIVE (NEGATIVE) Med Orders - Current: Current Medications Acetaminophen (Tylenol) 650 mg PO Q4H PRN PRN Reason: Pain (Mild 1-3)/fever Enoxaparin Sodium (Lovenox) 40 mg SUBCUT Q12H MARCIA Daptomycin 1,200 mg/ Sodium (Chloride) 24 mls @ 480 mls/hr IVPUSH Q24H [facility] Last Admin: 03/07/20 23:38 Dose: 480 mls/hr Documented by: Pharmacy Consult (Consult To Pharmacy) 1 each .XX ASDIRECTED [facility] Sodium Chloride (Saline Flush) 10 ml FLUSH ASDIRECTED PRN PRN Reason: Keep Vein Open Sodium Chloride (Saline Flush) 2.5 ml FLUSH ASDIRECTED PRN PRN Reason: Keep Vein Open Discontinued Medications Heparin Sodium (Porcine) (Heparin Sodium) 5,000 units SUBCUT Q8H [facility] Stop: 03/08/20 09:00 Last Admin: 03/08/20 08:12 Dose: 5,000 units Documented by: Vancomycin HCl 2 gm/ Dextrose/ (Water) 250 mls @ 167 mls/hr IV ONETIME ONE Stop: 03/07/20 18:35 Last Admin: 03/07/20 21:35 Dose: Not Given Documented by: Ceftriaxone Sodium 1 gm/ (Sodium Chloride) 100 mls @ 200 mls/hr IV STAT ONE Stop: 03/07/20 17:35 Last Admin: 03/07/20 19:16 Dose: Not Given Documented by: Sodium Chloride (Normal Saline) 1,000 mls @ 999 mls/hr IV .Bolus ONE Stop: 03/07/20 18:06 Last Admin: 03/07/20 17:39 Dose: 999 mls/hr Documented by: Ceftriaxone Sodium/Dextrose 1 (gm/ Premix) 50 mls @ 100 mls/hr IV ONETIME ONE Stop: 03/07/20 19:31 Last Admin: 03/07/20 19:21 Dose: 100 mls/hr Documented by: Vancomycin HCl 2 gm/ Sodium (Chloride) 500 mls @ 250 mls/hr IV ONETIME ONE Stop: 03/07/20 21:59 Last Admin: 03/07/20 20:14 Dose: 250 mls/hr Documented by: Vancomycin HCl 2 gm/ Sodium (Chloride) 500 mls @ 250 mls/hr IV Q8H [facility] Vancomycin HCl (Pharmacy To Dose - Vancomycin) 1 dose .XX ASDIRECTED [facility] - Exam General: Alert, Oriented Neck: Supple Lungs: Clear to Auscultation, Normal Respiratory Effort Cardiovascular: Regular Rate, Regular Rhythm GI/Abdominal Exam: Soft, Non-Tender, No Distention Extremities: Non-Tender, Other (edema and erythema of left leg has improved) Skin: Warm, Dry, Intact Neurological: No New Focal Deficit Sepsis Event Note - Evaluation Sepsis Screening Result: No Definite Risk - Focused Exam Vital Signs: Vital Signs Temp Pulse Resp BP Pulse Ox Pulse Ox 03/08/20 08:00 36.8 C 76 16 132/66 95 03/08/20 04:16 36.6 C 76 21 H 159/91 H 95 03/07/20 23:49 36.5 C 75 20 140/71 90 L 03/07/20 23:48 98 98 Date Exam was Performed: 03/08/20 Time Exam was Performed: 09:53 - Problem List Review Problem List Initiated/Reviewed/Updated: Yes - My Orders Last 24 Hours: My Active Orders 03/07/20 19:51 Telemetry Monitoring [Cardiac Monitoring] [RC] Q8H 03/07/20 21:30 Pharmacy Consult [Consult to Pharmacy] 1 each .XX ASDIRECTED 03/07/20 23:00 DAPTOmycin [Cubicin] 1,200 mg Sodium Chloride 0.9% [Normal Saline] 24 ml IVPUSH Q24H 03/07/20 23:48 Oxygen Therapy [RC] PRN Pulse Oximetry [RC] CONTINUOUS Up ad Samina [RC] ASDIRECTED VTE/DVT Education [RC] PER UNIT ROUTINE Vital Signs [RC] Q4H Acetaminophen [Tylenol] 650 mg PO Q4H PRN Sequential Compression Device [OM.PC] Per Unit Routine Resuscitation Status Routine 03/07/20 23:49 Antiembolic Devices [RC] PER UNIT ROUTINE 03/08/20 Breakfast Regular Diet [DIET] 03/08/20 18:00 Enoxaparin [Lovenox] 40 mg SUBCUT Q12H - Plan Plan:: 29 yo male admitted for lower leg cellulitis. Cellulitis: continue Daptomycin. Suspect SHAMEKA: We will monitor with pulse oximeter overnight, will make referral for sleep study.
[2020-03-08] MEDS: Enoxaparin 40 MG/0.4 ML Syringe SUBCUT SCH (17:41)
[2020-03-08] MEDS: DAPTOMYCIN IVPUSH SCH (23:06)
[2020-03-08] MEDS: SODIUM CHLORIDE 0.9% IVPUSH SCH (23:06)
[2020-03-09] MEDS: Enoxaparin 40 MG/0.4 ML Syringe SUBCUT SCH (05:51)
[2020-03-09 09:19] LABS: BLOOD UREA NITROGEN,BUN 12 mg/dL (7.0-18.0); CARBON DIOXIDE,CO2 23.8 mmol/L (21.0-32.0); CHLORIDE,CL 104 mmol/L (98-107); GLUCOSE RANDOM 94 mg/dL (74-106); POTASSIUM,K 4.3 mmol/L (3.5-5.1); SODIUM,NA 138 mmol/L (136-148)
--- NOTE | 2020-03-09 10:55 | PCM.DCSUM1 ---
Discharge Summary - Hospital Course Brief History: 29 yo male who was discharged two days ago after being hospitalized for left lower leg cellulitis. Patient reports yesterday he did have improvement in the swelling of his leg but today it came back again to the point of were it was at discharge. He fell asleep on the couch and it took family 15minutes to wake him up. During his last admision it was felt patient had sleep apnea. Diagnosis: Stroke: No Modified Watchung Scale: No Symptoms at All Modified Padmini Scale Score: 0 - Discharge Data Discharge Date: 03/09/20 Discharge Disposition: Home, Self-Care 01 Condition: Good - Referral to Home Health Primary Care Physician: PCP None - Patient Summary/Data Hospital Course: Admitting Diagnoses: Cellulitis Sepsis sleep apnea Discharge Diagnoses: Cellulitis sepsis- resolved Sleep apnea Alex was admitted and monitor for worsening of cellulitis. He was treated with Daptomycin, erythema improved significantly. BC 08/21 again returned with coag jonathan mac, possible contaminated sample as patient is a difficult stick. Leukocytosis improved today. We recommended him to stay another night to monitor BC and keep IV antibiotics. he denies wanting this. He reports he will return if there are concerns. He will be discharged home today with Clindamycin 600 mg TID for 7 days. he is to complete sleep study as outpatient. He reports he will do this. He is to return to ED or clinic if concerns should arise. - Patient Instructions Diet: Regular Diet as Tolerated Activity: As Tolerated, No Strenuous Activities Driving: Do Not Drive Showering/Bathing: May Shower Notify Provider of: Fever, Increased Pain, Swelling and Redness, Drainage, Nausea and/or Vomiting Other/Special Instructions: Make sure to set up sleepy study payment plan for sleep study to be scheduled. - Discharge Plan *PRESCRIPTION DRUG MONITORING PROGRAM REVIEWED*: Not Applicable *COPY OF PRESCRIPTION DRUG MONITORING REPORT IN PATIENT STACIA: Not Applicable Prescriptions/Med Rec: clindamycin HCL [Clindamycin HCl] 300 mg PO TID #42 capsule Home Medications: Home Meds clindamycin HCL [Clindamycin HCl] 300 mg PO TID #42 capsule 03/09/20 [Rx] Oxygen Therapy Mode: Room Air Patient Handouts: Sleep Studies, Clindamycin capsules, Cellulitis, Adult, [id number], Sleep Apnea, [id number], Screening for Sleep Apnea Referrals: Elena Shetty, KRYSTA [Nurse Practitioner] - 03/13/20 11:00 am (Please arrive 15 minutes early and bring your own facemask to your appointment.) - Discharge Summary/Plan Comment DC Time >30 min.: No - Patient Data Vitals - Most Recent: Last Vital Signs Temp 97 F 03/09/20 07:47 Pulse 88 03/09/20 07:47 Resp 16 03/09/20 07:47 BP 117/66 03/09/20 07:47 Pulse Ox 94 L 03/09/20 07:47 Weight - Most Recent: 156.489 kg I&O - Last 24 hours: Intake & Output 03/08/20 03/09/20 03/09/20 22:59 06:59 14:59 Intake Total 1612 820 Output Total 600 960 Balance 1012 -140 Lab Results - Last 24 hrs: Laboratory Results - last 24 hr 03/07/20 03/09/20 03/09/20 Range/Units 17:26 08:29 08:29 WBC 10.54 (4.0-11.0) K/uL RBC 4.77 (4.50-5.90) M/uL Hgb 14.0 (13.0-17.0) g/dL Hct 43.5 (38.0-50.0) % MCV 91.2 (80.0-98.0) fL MCH 29.4 (27.0-32.0) pg MCHC 32.2 (31.0-37.0) g/dL RDW Std Deviation 45.4 (28.0-62.0) fl RDW Coeff of Coreen 14 (11.0-15.0) % Plt Count 288 (150-400) K/uL MPV 9.90 (7.40-12.00) fL Neut % (Auto) 65.7 (48.0-80.0) % Lymph % (Auto) 25.1 (16.0-40.0) % Karnes % (Auto) 7.9 (0.0-15.0) % Eos % (Auto) 0.2 (0.0-7.0) % Baso % (Auto) 1.1 (0.0-1.5) % Neut # (Auto) 6.9 H (1.4-5.7) K/uL Lymph # (Auto) 2.7 H (0.6-2.4) K/uL Karnes # (Auto) 0.8 (0.0-0.8) K/uL Eos # (Auto) 0.0 (0.0-0.7) K/uL Baso # (Auto) 0.1 (0.0-0.1) K/uL Nucleated RBC % 0.0 /100WBC Nucleated RBCs # 0 K/uL ABG pH 7.347 L (7.35-7.45) ABG pCO2 43 (35-45) mmHG ABG pO2 63 L (75-100) mmHG ABG HCO3 23 (22-26) mEq/L ABG Total CO2 20.9 ABG Base Excess -2.4 L (-2.0-2.0) Sodium 138 (136-148) mmol/L Potassium 4.3 (3.5-5.1) mmol/L Chloride 104 (98-107) mmol/L Carbon Dioxide 23.8 (21.0-32.0) mmol/L BUN 12 (7.0-18.0) mg/dL Creatinine 0.7 L (0.8-1.3) mg/dL Est Cr Clr Drug Dosing 165.84 mL/min Estimated GFR (MDRD) > 60.0 ml/min Glucose 94 (74-106) mg/dL Calcium 9.0 (8.5-10.1) mg/dL CHRISTA Results - Last 24 hrs: Microbiology 03/07/20 17:30 Aerobic Blood Culture - Preliminary Blood - Venous Anaerobic Blood Culture - Preliminary NO GROWTH AFTER 1 DAY 03/07/20 17:40 Aerobic Blood Culture - Preliminary Blood - Venous - Lab Draw NO GROWTH AFTER 1 DAY Anaerobic Blood Culture - Preliminary NO GROWTH AFTER 1 DAY Med Orders - Current: Current Medications Acetaminophen (Tylenol) 650 mg PO Q4H PRN PRN Reason: Pain (Mild 1-3)/fever Enoxaparin Sodium (Lovenox) 40 mg SUBCUT Q12H [facility] Last Admin: 03/09/20 05:51 Dose: 40 mg Documented by: Daptomycin 1,200 mg/ Sodium (Chloride) 24 mls @ 480 mls/hr IVPUSH Q24H [facility] Last Admin: 03/08/20 23:06 Dose: 480 mls/hr Documented by: Pharmacy Consult (Consult To Pharmacy) 1 each .XX ASDIRECTED [facility] Sodium Chloride (Saline Flush) 10 ml FLUSH ASDIRECTED PRN PRN Reason: Keep Vein Open Sodium Chloride (Saline Flush) 2.5 ml FLUSH ASDIRECTED PRN PRN Reason: Keep Vein Open Discontinued Medications Heparin Sodium (Porcine) (Heparin Sodium) 5,000 units SUBCUT Q8H [facility] Stop: 03/08/20 09:00 Last Admin: 03/08/20 08:12 Dose: 5,000 units Documented by: Vancomycin HCl 2 gm/ Dextrose/ (Water) 250 mls @ 167 mls/hr IV ONETIME ONE Stop: 03/07/20 18:35 Last Admin: 03/07/20 21:35 Dose: Not Given Documented by: Ceftriaxone Sodium 1 gm/ (Sodium Chloride) 100 mls @ 200 mls/hr IV STAT ONE Stop: 03/07/20 17:35 Last Admin: 03/07/20 19:16 Dose: Not Given Documented by: Sodium Chloride (Normal Saline) 1,000 mls @ 999 mls/hr IV .Bolus ONE Stop: 03/07/20 18:06 Last Admin: 03/07/20 17:39 Dose: 999 mls/hr Documented by: Ceftriaxone Sodium/Dextrose 1 (gm/ Premix) 50 mls @ 100 mls/hr IV ONETIME ONE Stop: 03/07/20 19:31 Last Admin: 03/07/20 19:21 Dose: 100 mls/hr Documented by: Vancomycin HCl 2 gm/ Sodium (Chloride) 500 mls @ 250 mls/hr IV ONETIME ONE Stop: 03/07/20 21:59 Last Admin: 03/07/20 20:14 Dose: 250 mls/hr Documented by: Vancomycin HCl 2 gm/ Sodium (Chloride) 500 mls @ 250 mls/hr IV Q8H [facility] Vancomycin HCl (Pharmacy To Dose - Vancomycin) 1 dose .XX ASDIRECTED [facility] - Exam General: Reports: Alert, Oriented, Cooperative, No Acute Distress Lungs: Reports: Clear to Auscultation, Normal Respiratory Effort Cardiovascular: Reports: Regular Rate, Regular Rhythm GI/Abdominal Exam: Normal Bowel Sounds, Soft, Non-Tender Wound/Incisions: Reports: Erythema Improving (LLE) Neurological: Reports: No New Focal Deficit Psy/Mental Status: Reports: Alert, Normal Affect, Normal Mood
[2020-03-09 12:10] VITALS: BP 137/91; PULSE 74
== END 2020-03-09 13:46 | disposition home or self-care (01) ==
LOC: MW.ED 17:00 → MW.MS 18:52
PROVIDERS: ADMIT Internal Medicine; ATTEND Internal Medicine
DX: L03.116 Cellulitis of left lower limb (principal); A41.9 Sepsis, unspecified organism; J96.01 Acute respiratory failure with hypoxia; G47.30 Sleep apnea, unspecified; K21.9 Gastro-esophageal reflux disease without esophagitis; E03.9 Hypothyroidism, unspecified; E66.9 Obesity, unspecified; F17.210 Nicotine dependence, cigarettes, uncomplicated; Z20.828 Contact with and (suspected) exposure to other viral communicable diseases; Z88.6 Allergy status to analgesic agent; Z68.42 Body mass index [BMI] 45.0-49.9, adult
CPT/HCPCS: 36415; 36600; 71046; 80048; 80053; 80305; 81001; 82803; 83605; 84484; 85025; 87040; 87077; 87186; 87635; 93005; 93971; 96361; 96365; 96372; 96375; 96376; 99285; G0378; J0696; J0878; J1644; J1650; J3370; J7030; J7040; 99291; U0002

== ENCOUNTER 2021-02-18 23:14 | Emergency (ER) | payer SELFPAY ==
[2021-02-18] MEDS ORDERED: Ibuprofen 600 MG Tab PO ONE (23:31)
--- NOTE | 2021-02-19 01:29 | CR ---
For Patients: As a result of the Century Cures Act, medical imaging exams and procedure reports are released immediately into your electronic medical record. You may view this report before your referring provider. If you have questions, please contact your health care provider. INDICATION: Pain. TECHNIQUE: Four views of the right tibia and fibula. COMPARISON: None. IMPRESSION: No acute fracture. Knee and ankle joints appear normally aligned. Dictated by Arcadio Briceño MD @ 02/19/2021 1:29:09 AM Dictated by: Arcadio Briceño MD @ 02/19/2021 01:29:30 (Electronically Signed)
--- NOTE | 2021-02-19 01:34 | CT ---
For Patients: As a result of the Century Cures Act, medical imaging exams and procedure reports are released immediately into your electronic medical record. You may view this report before your referring provider. If you have questions, please contact your health care provider. INDICATION: Trauma. TECHNIQUE: Noncontrast axial images. Coronal and sagittal reconstructions. COMPARISON: None. FINDINGS: No skull fracture. No abnormal intracranial mass effect, midline shift, or evidence of an acute intracranial hemorrhage. No areas of abnormal attenuation within the brain. CSF spaces are age-appropriate. IMPRESSION: No CT evidence of an acute intracranial abnormality. Dictated by Arcadio Briceño MD @ 02/19/2021 1:33:16 AM Please note that all CT scans at this facility use dose modulation, iterative reconstruction, and/or weight-based dosing when appropriate to reduce radiation dose to as low as reasonably achievable. Dictated by: Arcadio Briceño MD @ 02/19/2021 01:33:24 (Electronically Signed)
--- NOTE | 2021-02-19 01:40 | CT ---
For Patients: As a result of the Cures Act, medical imaging exams and procedure reports are released immediately into your electronic medical record. You may view this report before your referring provider. If you have questions, please contact your health care provider. INDICATION: Trauma. TECHNIQUE: Axial images. Sagittal and coronal reconstructions. COMPARISON: None. FINDINGS: No acute facial bone fracture is identified. Intraorbital contents are unremarkable. Paranasal sinuses are clear. No TMJ dislocation. IMPRESSION: See above. Dictated by Arcadio Briceño MD @ 02/19/2021 1:38:39 AM Please note that all CT scans at this facility use dose modulation, iterative reconstruction, and/or weight-based dosing when appropriate to reduce radiation dose to as low as reasonably achievable. Dictated by: Arcadio Briceño MD @ 02/19/2021 01:38:54 (Electronically Signed)
--- NOTE | 2021-02-19 01:42 | CT ---
For Patients: As a result of the Cures Act, medical imaging exams and procedure reports are released immediately into your electronic medical record. You may view this report before your referring provider. If you have questions, please contact your health care provider. INDICATION: Neck pain. TECHNIQUE: Axial images. Sagittal and coronal reconstructions. COMPARISON: None. FINDINGS: There is straightening of the normal lordotic cervical spine curvature. No vertebral body malalignment or facet joint subluxation or dislocation. No cervical spine fracture. The intervertebral disc spaces and facet joints are well maintained. IMPRESSION: No cervical spine fracture or traumatic malalignment. Dictated by Arcadio Briceño MD @ 02/19/2021 1:41:36 AM Please note that all CT scans at this facility use dose modulation, iterative reconstruction, and/or weight-based dosing when appropriate to reduce radiation dose to as low as reasonably achievable. Dictated by: Arcadio Briceño MD @ 02/19/2021 01:41:38 (Electronically Signed)
[2021-02-19] MEDS ORDERED: traMADol 50 MG Tab PO ONE (01:50)
[2021-02-19] MEDS ORDERED: Acetaminophen 325 MG Tab PO ONE (01:50)
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
[2021-02-19 02:13] VITALS: BP 137/67; PULSE 76
== END 2021-02-19 02:14 | disposition home or self-care (01) ==
LOC: MW.ED 23:14
DX: S06.0X9A Concussion with loss of consciousness of unspecified duration, initial encounter (principal); S00.81XA Abrasion of other part of head, initial encounter; F10.120 Alcohol abuse with intoxication, uncomplicated; I10 Essential (primary) hypertension; E66.9 Obesity, unspecified; Z88.5 Allergy status to narcotic agent; W22.8XXA Striking against or struck by other objects, initial encounter
CPT/HCPCS: 70450; 70486; 72125; 73590; 99284; A9270

== ENCOUNTER 2022-01-18 23:09 | Emergency (ER) | payer SELFPAY ==
[2022-01-18] MEDS ORDERED: Sodium Chloride 0.9% 1,000 ML IV ONE (23:13)
[2022-01-18] MEDS ORDERED: Ondansetron 4 MG/2 ML SDV IVPUSH ONE (23:13)
[2022-01-19 00:33] LABS: ACETAMINOPHEN <2.0 ug/mL; BLOOD UREA NITROGEN,BUN 10 mg/dL (7.0-18.0); CARBON DIOXIDE,CO2 29.7 mmol/L (21.0-32.0); CHLORIDE,CL 106 mmol/L (98-107); GLUCOSE RANDOM 92 mg/dL (74-106); SODIUM,NA 141 mmol/L (136-148)
[2022-01-19 02:24] VITALS: BP 143/103; PULSE 112
== END 2022-01-19 02:35 ==
LOC: MW.ED 23:09
DX: T40.601A Poisoning by unspecified narcotics, accidental (unintentional), initial encounter (principal); I10 Essential (primary) hypertension; J96.90 Respiratory failure, unspecified, unspecified whether with hypoxia or hypercapnia; F11.90 Opioid use, unspecified, uncomplicated; E66.9 Obesity, unspecified; Z68.42 Body mass index [BMI] 45.0-49.9, adult; Z88.5 Allergy status to narcotic agent
CPT/HCPCS: 36415; 80053; 80143; 80179; 80307; 83735; 85025; 96361; 96374; 99285; J2405; J7030; 99283

== ENCOUNTER 2022-04-10 19:36 | Emergency (ER) | payer SELFPAY ==
[2022-04-10 21:43] VITALS: BP 124/67; PULSE 87
== END 2022-04-10 20:49 | disposition home or self-care (01) ==
LOC: MW.ED 19:36
DX: Z76.0 Encounter for issue of repeat prescription (principal); Z88.5 Allergy status to narcotic agent; Z79.899 Other long term (current) drug therapy
CPT/HCPCS: 99283

== ENCOUNTER 2022-06-08 11:54 | Emergency (ER) | payer SELFPAY ==
[2022-06-08 14:07] VITALS: BP 132/96; PULSE 109
[2022-06-08] MEDS ORDERED: Bupivacaine 0.5% 10 ML SDV INJECT ONE (14:16)
[2022-06-08] MEDS ORDERED: Lidocaine 1% 5 ML VIAL INJECT ONE (14:16)
== END 2022-06-08 17:18 | disposition home or self-care (01) ==
LOC: MW.ED 11:54
DX: S61.011A Laceration without foreign body of right thumb without damage to nail, initial encounter (principal); S61.012A Laceration without foreign body of left thumb without damage to nail, initial encounter; I10 Essential (primary) hypertension; E66.9 Obesity, unspecified; Z68.39 Body mass index [BMI] 39.0-39.9, adult; Z88.5 Allergy status to narcotic agent; Z79.899 Other long term (current) drug therapy; Z86.16 Personal history of COVID-19; Z90.49 Acquired absence of other specified parts of digestive tract; W26.0XXA Contact with knife, initial encounter
CPT/HCPCS: 12001; 36415; 73130; 85014; 85018; 99283; J3490

== ENCOUNTER 2022-06-12 15:04 | Emergency (ER) | payer SELFPAY ==
[2022-06-12 15:26] VITALS: BP 140/82; PULSE 82
== END 2022-06-12 15:41 | disposition home or self-care (01) ==
LOC: MW.ED 15:04
DX: Z02.89 Encounter for other administrative examinations (principal); Z88.5 Allergy status to narcotic agent; Z79.899 Other long term (current) drug therapy
CPT/HCPCS: 99283

== ENCOUNTER 2022-09-07 15:46 | Emergency (ER) | payer SELFPAY ==
[2022-09-07 16:00] VITALS: BP 145/99; PULSE 71
== END 2022-09-07 16:09 | disposition home or self-care (01) ==
LOC: MW.ED 15:46
DX: Z02.89 Encounter for other administrative examinations (principal); I10 Essential (primary) hypertension; E03.9 Hypothyroidism, unspecified; Z88.5 Allergy status to narcotic agent; E78.00 Pure hypercholesterolemia, unspecified; Z79.899 Other long term (current) drug therapy
CPT/HCPCS: 99283

== ENCOUNTER 2022-10-18 12:12 | Emergency (ER) | payer SELFPAY ==
[2022-10-18 12:25] VITALS: BP 145/98; PULSE 80
== END 2022-10-18 12:50 ==
LOC: MW.ED 12:12
DX: M54.50 Low back pain, unspecified (principal); G89.29 Other chronic pain; F11.90 Opioid use, unspecified, uncomplicated; E78.00 Pure hypercholesterolemia, unspecified; I10 Essential (primary) hypertension; E03.9 Hypothyroidism, unspecified; E66.9 Obesity, unspecified; Z79.899 Other long term (current) drug therapy; Z88.5 Allergy status to narcotic agent; Z86.16 Personal history of COVID-19; Z68.35 Body mass index [BMI] 35.0-35.9, adult
CPT/HCPCS: 99283